=== PATIENT | female | born 1950 | race Caucasian/White ===

== ENCOUNTER 2018-03-26 01:58 | Outpatient (CLI) | payer MEDICARE, BC, SELFPAY ==
[2018-03-26 09:00] LABS: ALT 23 U/L (12-78); AST 17 U/L (15-37); Albumin 3.5 g/dL (3.4-5.0); Alkaline Phosphatase 78 U/L (46-116); Anion Gap 11.5 mmol/L (3-11); BUN 25 mg/dL (7-18); Bilirubin, Total 0.4 mg/dL (0.2-1.0); CO2 25.5 mmol/L (21.0-32.0); CREATININE 0.99 mg/dL (0.55-1.02); Calcium 8.9 mg/dL (8.5-10.1); Chloride 107 mmol/L (98-107); Estimated GFR 55.78 (mL/min/1.73m2); Glucose 98 mg/dL (70-100); Potassium 4.1 mmol/L (3.5-5.1); Sodium 144 mmol/L (136-145); Total Protein 7.4 g/dL (6.4-8.2)
== END 2018-03-26 02:18 ==
PROVIDERS: PCP Family Medicine; Visit Provider Family Medicine
DX: I10 Essential (primary) hypertension (principal)
CPT/HCPCS: 36415; 80053

== ENCOUNTER 2019-01-26 11:46 | Outpatient (CLI) | payer MEDICARE, BC, SELFPAY ==
--- NOTE | 2019-01-26 11:30 | DI.RAD_ITS ---
SYMPTOMS/DIAGNOSIS: RT KNEE PAIN RIGHT KNEE: Three views. Periarticular spurring is seen in the medial femoral tibial joint and the patellofemoral joint. There does appear to be mild narrowing of the medial femoral tibial joint and the patellofemoral joint. There is a large enthesophyte at the insertion site of the quadriceps tendon. The bones are intact and normally mineralized. IMPRESSION: Mild degenerative changes of the right knee.
== END 2019-01-26 12:06 ==
PROVIDERS: PCP Family Medicine; Referring Provider Family Medicine; Visit Provider Orthopaedic Surgery
DX: M25.561 Pain in right knee (principal); M17.11 Unilateral primary osteoarthritis, right knee; I10 Essential (primary) hypertension
CPT/HCPCS: 73562; 99211; 99213

== ENCOUNTER → 2019-02-23 09:05 | Outpatient (BNVA) | payer MEDICARE, BC, SELFPAY | PROVIDERS: PCP Family Medicine; Referring Provider Family Medicine; Visit Provider Orthopaedic Surgery | DX: M17.11 Unilateral primary osteoarthritis, right knee (principal); I10 Essential (primary) hypertension | CPT/HCPCS: 20610; 99211; 99213; J7325 ==

== ENCOUNTER 2019-03-30 11:59 | Outpatient (CLI) | payer MEDICARE, BC, SELFPAY ==
[2019-03-30 13:47] LABS: ALT 27 U/L (14-59); AST 18 U/L (15-37); Albumin 3.9 g/dL (3.4-5.0); Alkaline Phosphatase 84 U/L (46-116); Anion Gap 10.4 mmol/L (3-11); BUN 22 mg/dL (7-18); Bilirubin, Total 0.5 mg/dL (0.2-1.0); CO2 27.6 mmol/L (21.0-32.0); CREATININE 0.92 mg/dL (0.55-1.02); Calcium 8.6 mg/dL (8.5-10.1); Chloride 106 mmol/L (98-107); Glucose 90 mg/dL (70-100); Sodium 144 mmol/L (136-145); Total Protein 7.8 g/dL (6.4-8.2)
== END 2019-03-30 12:19 ==
PROVIDERS: PCP Family Medicine; Visit Provider Family Medicine
DX: I10 Essential (primary) hypertension (principal)
CPT/HCPCS: 36415; 80053

== ENCOUNTER → 2019-04-08 09:07 | Outpatient (BNVA) | payer MEDICARE, BC, SELFPAY | PROVIDERS: PCP Family Medicine; Referring Provider Family Medicine; Visit Provider Student in an Organized Health Care Education/Training Program | DX: M17.11 Unilateral primary osteoarthritis, right knee (principal); I10 Essential (primary) hypertension | CPT/HCPCS: 99214 ==

== ENCOUNTER → 2019-05-20 10:43 | Outpatient (BNVA) | payer MEDICARE, BC, SELFPAY | PROVIDERS: PCP Family Medicine; Referring Provider Family Medicine; Visit Provider Physical Therapy Assistant | DX: Z12.11 Encounter for screening for malignant neoplasm of colon (principal); Z86.010 Personal history of colon polyps; I10 Essential (primary) hypertension ==

== ENCOUNTER 2019-06-07 06:13 | Day surgery (SDC) | payer MEDICARE, BC, SELFPAY ==
[2019-06-07 06:29] VITALS: BP 128/78; PULSE 92; RESP 17; TEMP 36.8; O2SAT 94
--- NOTE | 2019-06-07 06:37 | W.COLOREPORT ---
Date of service: 06/07/19 Time of Service: 07:35 Colonoscopy Report Date of procedure: 06/07/19 Pre-op diagnosis general: Hx of colon polyps Post-op diagnosis procedure note: same (polyps x4) Procedure: Colonoscopy with polypectomy by cold forceps Surgeon: Naomi Ayala Anesthesia proc note operative: other (General/ ASA 2/Chelsie Martinez, KIMBERLY ) Estimated blood loss (mL): 3 Pathology: other (Ascending colon polyps x2, descending colon polyps x2) Complications: None Disposition: same day Indications: 68 y/o female with history of GERD and HTN presents for colonoscopy screening pre-op. Her last screening was in 2010, which was remarkable for Tubular Adenoma. She reports a family history of colon cancer in her paternal grandfather. She denies any changes in bowel habits including bloody or black tarry stools, abdominal pain, diarrhea or constipation. She denies constitutional symptoms. Risks, benefits and complications have been reviewed. Complications include but are not limited to bleeding, pain, perforation, missed small lesion/polyp, sore throat, aspiration and adverse reaction to the medications. Questions were entertained and answered to their satisfaction and they wished to proceed. No guarantees were given or implied. Prep: Miralax/Dulcolax Procedure Start Time: 07:35 Procedure End Time: 08:00 Retraction Time: 17 minutes Findings: 4 small < 10 mm polyps Procedure Description: After informed consent was obtained the patient was taken to the procedure room and placed in a left decubitous position. Monitors were applied and a time out was done. The patients name, date of , procedure, allergies to medications and metal in their body was reviewed. The patient was then sedated. Once sedated and comfortable a rectal exam was done. External exam was normal. Internal exam revealed a normal sphincter tone and no palpable masses. The scope was then introduced and retro-flexed. No internal hemorrhoids, masses or polyps were identified on retro-flexion. The scope was then advanced to the cecum without difficulty. The TI and appendiceal orifice were identified. The prep was good. The scope was then slowly retracted over 17 minutes back into the rectum. Polyps were removed with cold forceps in the ascending colon x2 and the descending colon x2. The scope was removed and the patient was woken up and taken back to Same day surgery in stable condition. The patient tolerated the procedure well and there were no immediate complications. Follow up: The patient should follow up in 3-5 years unless they develop changes in bowel habits or other new gastrointestinal complaints.
--- NOTE | 2019-06-07 06:38 | PDOC.DSDIS_ITS ---
Discharge Plan Disposition Patient Disposition: HOME Condition: Good Discharge Details Reason For Visit: Hx of polyps Attending Provider: Naomi Ayala Primary Care Provider: Madeline Klein Home Meds and New Rx's Prescriptions: Continued cholecalciferol (vitamin D3) 1,000 unit capsule 1,000 unit PO DAILY RF: 0 losartan 25 mg tablet 25 mg PO DAILY Qty: 90 RF: 4 hydrochlorothiazide 25 mg tablet 25 mg PO DAILY Qty: 90 RF: 4 naproxen sodium [Aleve] 220 mg capsule 220 mg PO PRN PRNRF: 0 Centrum Silver Ultra Women's 1 EACH tablet 1 ea PO DAILY RF: 0 Discontinued polyethylene glycol 3350 17 gram/dose powder 238 g PO ONCE Qty: 238 RF: 0 bisacodyl [Dulcolax (bisacodyl)] 5 mg tablet,delayed release (DR/EC) 5 mg PO ONCE Qty: 4 RF: 0 Discharge Instructions Instructions: Colonoscopy (DC), Colorectal Polyps (DC) Additional Instructions: Findings: 4 small polyps Follow up: 3-5 years Please call if you develop: fevers >101.5 Nausea or Vomiting Abdominal pain that is not transient DAY SURGERY UNIT POST ENDOSCOPY INSTRUCTIONS 1. Because there will be medication in your system for the next 24 hours, you may feel a little sleepy. Your coordination will be affected. Therefore: a. Do not drive or operate dangerous equipment for 24 hours. b. Do not drink alcohol beverages for 24 hours (not even beer). c. Plan to go home and rest for the day. 2. Generally there are no restrictions on your activity after a day or so has go ne by, but you may feel a bit fatigued for a few days. 3 After you arrive home you may have a light meal and return to a normal diet as you can tolerate it without feeling sick to your stomach. 4. After surgery, you may feel pain or discomfort. This should be only transient, but if it persists please contact your doctor. 5. If there are any questions regarding the findings of your procedure, please feel free to contact your doctor. 6. If you are unable to contact your doctor with a problem, contact the hospital at [phone]. 7. Continue all your regular medications unless directed otherwise. I understand the above instructions and have no questions. Signature of Patient or Responsible Adult Escort Date/Time Name of Responsible Adult Escort Signature of Nurse Date/Time Activity:: Activity as Tolerated Diet:: As Tolerated Discharge Orders Discharge Orders: Discharge Order (Routine); Ordered 06/07/19 Ordered By: Naomi Ayala DS: Diagnosis Discharge Diagnosis (1) Hx of colonic polyps: Status: Acute (2) S/P colonoscopy: Status: Acute
[2019-06-07] MEDS: Lactated Ringers 1,000 ML 80 ML IV (07:03)
[2019-06-07] MEDS: Sodium Citrate 30 ML CUP (07:25)
--- NOTE | 2019-06-07 07:37 | BOWEL_PTH ---
PATIENT: Theresa Mccauley LOC: [facility] U#:[id number] AGE/SX: 68/F ROOM: RE06/07/[address]: Naomi Ayala MD : 1950 BED: DIS: 06/07/2019 SPEC #: [id number] RECD: 06/07/19 12:27 STATUS: JAY RE #: [id number] KIMBERLY: 06/07/19 07:[address]: Naomi Ayala DEPT: Surgical Specimen RECD BY: Estrella Downey ENTERED: 06/07/19 12:29 SP TYPE: Bowel OTHR DR: Madeline Klein MD Tissues: 1 - BIOPSY BOWEL 2 - BIOPSY BOWEL Procedures: GROSS AND MICRO LEVEL 4 Comments: [id number]
[2019-06-07 08:45] VITALS: BP 126/62; PULSE 72; RESP 16; TEMP 36.1; O2SAT 96
== END 2019-06-07 09:26 | disposition home or self-care (01) ==
PROVIDERS: PCP Family Medicine; Visit Provider Surgery
PROC: 0DJD8ZZ Inspection of Lower Intestinal Tract, Via Natural or Artificial Opening Endoscopic (ICD-10-PCS; CPT 45378; principal; 2019-06-07 07:30)
DX: Z12.11 Encounter for screening for malignant neoplasm of colon (principal); Z86.010 Personal history of colon polyps; Z80.0 Family history of malignant neoplasm of digestive organs; I10 Essential (primary) hypertension; D12.2 Benign neoplasm of ascending colon; D12.4 Benign neoplasm of descending colon
CPT/HCPCS: 45380; 88305

== ENCOUNTER 2021-03-23 02:48 | Outpatient (CLI) | payer MEDICARE, BC, SELFPAY ==
[2021-03-23 15:12] LABS: ALT 27 U/L (14-59); AST 18 U/L (15-37); Albumin 3.7 g/dL (3.4-5.0); Alkaline Phosphatase 74 U/L (46-116); Anion Gap 7.4 mmol/L (3-11); BUN 22 mg/dL (7-18); Bilirubin, Total 0.6 mg/dL (0.2-1.0); CO2 28.6 mmol/L (21.0-32.0); CREATININE 0.8 mg/dL (0.55-1.02); Calcium 9.3 mg/dL (8.5-10.1); Chloride 108 mmol/L (98-107); Glucose 86 mg/dL (74-106); Sodium 144 mmol/L (136-145); Total Protein 7.4 g/dL (6.4-8.2)
== END 2021-03-23 02:49 | disposition home or self-care (01) ==
LOC: LBO 02:48
PROVIDERS: PCP Family Medicine; Visit Provider Family Medicine
DX: I10 Essential (primary) hypertension (principal)
CPT/HCPCS: 36415; 80053

== ENCOUNTER 2021-03-26 15:45 | Outpatient (CLI) | payer MEDICARE, BC, SELFPAY ==
--- NOTE | 2021-03-26 10:30 | DI.RAD_ITS ---
Exam(s) XR HIP RT COMPLETE AP PELVIS EXAM: XR HIP RT COMPLETE AP PELVIS CLINICAL HISTORY: right hip pain/ no trauma M25.551 PAIN RT HIP. TECHNIQUE: 2D digital imaging was performed. COMPARISON: No exams were available for comparison FINDINGS: Four views of the pelvis hips reveal no evidence of pelvic nor hip fracture. Additional views of the right hip reveal mild degenerative changes. Osteitis symphysis pubis noted. Sacroiliac joints unre markable. IMPRESSION: DATA REPOSITORY: RADIATION DOSE DELIVERED:
== END 2021-03-26 16:05 ==
PROVIDERS: PCP Family Medicine; Visit Provider Family Medicine
DX: M25.551 Pain in right hip (principal); M86.8X8 Other osteomyelitis, other site
CPT/HCPCS: 73502

== ENCOUNTER 2022-06-19 02:14 | Outpatient (CLI) | payer MEDICARE, BC, SELFPAY ==
--- NOTE | 2022-06-19 10:24 | DI.US_ITS ---
APPROVED REPORT EXAM: Comprehensive 2D, Doppler, and color-flow Echocardiogram Patient Location: Out-Patient Paperback Machine Operator: Ana Cm RDCS (AE) Indications: Holosystolic heart murmur Other Information Study Quality: Adequate Conclusion Borderline concentric left ventricular hypertrophy. Estimated ejection fraction is 60%. Wall motion is normal Normal right ventricular size and systolic function Both atria are normal in size Aortic valve is mildly sclerotic, probably trileaflet, without stenosis or regurgitation Moderate to severe mitral annular calcification. Mild to moderate mitral regurgitation Normal tricuspid valve with trace to mild regurgitation. Estimated right ventricular systolic pressu re is 22 mmHg Mildly dilated ascending aorta measuring 3.48 cm Wall motion Left Ventricle The left ventricle is normal size. The left ventricular systolic function is normal. The left ventric ular ejection fraction is within the normal range. Borderline concentric left ventricular hypertrophy . . There is normal LV segmental wall motion. There is no ventricular septal defect visualized. LVEF is 60%. Right Ventricle The right ventricle is normal size. The right ventricular systolic function is normal. The RVSP is 21 .8 mmHg. Atria The left atrium size is normal. The right atrium size is normal. The interatrial septum is intact wit h no evidence for an atrial septal defect. Aortic Valve The Aortic valve is mildly sclerotic. Aortic valve is probably trileaflet. No hemodynamically signif icant valvular aortic stenosis. No aortic regurgitation is present. Mitral Valve Moderate to severe mitral annular calcification. No evidence of mitral valve stenosis. Mild to modera te mitral regurgitation. Tricuspid Valve The tricuspid valve is normal in structure. There is no tricuspid valve stenosis. Trace to mild tricu spid regurgitation. Pulmonic Valve Pulmonic valve is not well visualized. There is no pulmonic valvular stenosis. Trace pulmonic regurgi tation. Great Vessels The aortic root is normal in size. The ascending aorta is mildly dilated. Aortic arch is normal in ca liber. IVC is normal in size and collapses >50% with inspiration. Pericardium There is no pericardial effusion. 2D Dimensions IVSD d PLAX 1.09 cm F: 0.6-1.0 LV Vol A2C d MOD 115.0 mL LVPW d PLAX 1.09 cm F: 0.6 - 1.0 LV Vol A4C d MOD 91.4 mL LVID d PLAX 4.00 cm F: 3.8 - 5.2 LA vol/ BSA A2C s A-L 31.3 mL/m2 LVDs 2.55 cm F: 2.2 - 3.5 LA vol/ BSA A4C s A-L 21.7 mL/m2 Ao Root d 2.91 cm F: 2.7 - 3.3 LA Vol/ BSA Biplane s A-L 26.5 mL/m2 RA Area A4C 10.54 cm2 LA Area A4C s MOD 16.98 cm2 RA Vol/ BSA A4C s A-L 9.5 mL/m2 LA Area A2C s MOD 20.72 cm2 Ao Asc Diam d 3.48 cm F: 2.3 - 3.1 LV EF A4C MOD 59.0 % LV EF Teichholz 65.5 % LV EF A2C MOD 58.8 % LVEF (Soares's) 60.20 % F: 54 - 74 LV EF Biplane MOD 60.2 % LV Volume 78.64 mL F: 46 - 106 SV 64.42 mL LV Volume Index 36.92 mL/m2 F: 29 - 61 SV Index 30.27 mL/m2 LV Vol Biplane MOD 107.0 mL FS 35.45 % M-Mode TAPSE 2.07 cm (M/F) >1.7 LV Diastology MV E' medial 0.065 (>0.07 m/s) E/A Ratio 0.7 LV E/e MED 17.30 (<14) MV E Vmax 1.12 (0.4-1.3 m/s) MV E' lateral 0.059 (>0.1 m/s) MV A Vmax 1.60 (0.4-1.3 m/s) LV E/e LAT 19.10 (<14) MV E/A Ratio 0.70 MV E/E' medial 17.31 MV E/E' lateral 19.11 Aortic Valve LVOT Area 3.33 cm2 AoV Area Vmax 2.35 cm2 LVOT Vmax 1.45 m/s AoV Area/ BSA (Vmax) 1.10 cm2/m2 LVOT Mean Miah. 0.95 m/s MELISA Mean Miah. 2.07 cm2 LVOT Peak Grad 8.4 mmHg MELISA Mean Miah. Index 0.97 cm2/m2 LVOT Mean Grad 4.3 mmHg LVOT VTI 0.296 m LVOT Diam s 2.05 cm AoV Vmax 2.05 m/s Velocity Ratio 0.71 AoV Mean Miah. 1.52 m/s AoV Peak Grad 16.8 mmHg LVOT SV 98.54 mL AoV Mean Grad 10.3 mmHg AoV VTI 0.446 m AoV Area VTI 2.21 cm2 AoV Area/ BSA (VTI) 1.04 cm/m2 Mitral Valve MV DT 340 (160-240 msec) MV PHT 99 msec MV Area PHT 2.23 cm2 MV VTI 0.500 m MV Area VTI 1.97 (4.0-6.0 cm2) Pulmonary Valve PV Vmax 1.13 (0.5-1.5 m/s) RVOT Peak Gr. 3.50 mmHg PV Peak Grad 5.1 mmHg RVOT Mean Gr. 1.70 mmHg PV Mean Grad 2.4 mmHg RVOT VTI 0.190 m PV VTI 0.188 m RVOT Vmax 0.94 m/s Tricuspid Valve TR Peak Grad 18.7 mmHg TR Vmax 2.17 m/s RA Pressure 3.00 mmHg RVSP (TR) 21.8 mmHg
== END 2022-06-19 02:34 ==
LOC: DI 02:14
PROVIDERS: PCP Family Medicine; Visit Provider Family Medicine
DX: R01.1 Cardiac murmur, unspecified (principal)
CPT/HCPCS: 36415; 80053; 80061; 93306

== ENCOUNTER 2022-06-19 02:44 | Outpatient (CLI) | payer MEDICARE, BC, SELFPAY ==
[2022-06-19 10:13] LABS: ALT 26 U/L (14-59); AST 25 U/L (15-37); Albumin 3.6 g/dL (3.4-5.0); Alkaline Phosphatase 83 U/L (46-116); Anion Gap 7.9 mmol/L (3-11); BUN 23 mg/dL (7-18); Bilirubin, Total 0.6 mg/dL (0.2-1.0); CO2 29.1 mmol/L (21.0-32.0); Calcium 9.2 mg/dL (8.5-10.1); Calculated LDL 107 mg/dL (<100); Chloride 102 mmol/L (98-107); Cholesterol 190 mg/dL (<200); Estimated GFR 59.49 (mL/min/1.73m2); Glucose 105 mg/dL (74-106); HDL Cholesterol 71 mg/dL (40-60); Potassium 3.4 mmol/L (3.5-5.1); Sodium 139 mmol/L (136-145); Triglyceride 63 mg/dL (<150)
== END 2022-06-19 02:45 | disposition home or self-care (01) ==
LOC: LBO 02:44
PROVIDERS: PCP Family Medicine; Visit Provider Family Medicine
DX: I10 Essential (primary) hypertension (principal); Z00.00 Encounter for general adult medical examination without abnormal findings; Z13.6 Encounter for screening for cardiovascular disorders
CPT/HCPCS: 36415; 80053; 80061

== ENCOUNTER 2023-06-09 03:56 | Outpatient (CLI) | payer MEDICARE, BC, SELFPAY ==
[2023-06-09 08:45] LABS: BUN 28 mg/dL (7-18); CREATININE 1.2 mg/dL (0.55-1.02); Calcium 9.7 mg/dL (8.5-10.1); Calculated LDL 74 mg/dL (<100); Chloride 104 mmol/L (98-107); Cholesterol 163 mg/dL (<200); Glucose 111 mg/dL (74-106); HDL Cholesterol 74 mg/dL (40-60); Potassium 3.8 mmol/L (3.5-5.1); Sodium 141 mmol/L (136-145); Triglyceride 76 mg/dL (<150)
== END 2023-06-09 03:57 | disposition home or self-care (01) ==
LOC: LBO 03:56
PROVIDERS: PCP Family Medicine; Visit Provider Family Medicine
DX: I10 Essential (primary) hypertension (principal); Z13.6 Encounter for screening for cardiovascular disorders
CPT/HCPCS: 36415; 80048; 80061

== ENCOUNTER 2024-05-14 15:10 | Outpatient (CLI) | payer MEDICARE, BC, SELFPAY ==
[2024-05-14 10:35] LABS: Anion Gap 11.7 mmol/L (3-11); BUN 25 mg/dL (7-18); CO2 25.3 mmol/L (21.0-32.0); CREATININE 1.1 mg/dL (0.55-1.02); Calcium 9.2 mg/dL (8.5-10.1); Calculated LDL 55 mg/dL (<100); Chloride 106 mmol/L (98-107); Cholesterol 151 mg/dL (<200); Estimated GFR 52.73 (mL/min/1.73m2); Glucose 106 mg/dL (74-106); HDL Cholesterol 71 mg/dL (40-60); Potassium 3.3 mmol/L (3.5-5.1); Sodium 143 mmol/L (136-145); Triglyceride 126 mg/dL (<150)
--- OUTSIDE RECORDS SUMMARY | 2024-05-14 15:15 | XMS_ITS | Clinical Summary ---
Author Organization [facility] Address [facility] [place] [address] Care Team Providers Care Running Rigger Name Role Phone Carla Roberts MD Primary Care Provider Allergies Active Allergy Reactions Criticality Noted Date Comments Caffeine 01/29/2013 Penicillins 01/29/2013 Sulfa (Sulfonamide Antibiotics) High CIS - Hives Medications Medication Sig Dispensed Refills Start Date End Date Status atenolol (TENORMIN) 25 mg tablet 12.5MG = 1/2 Tablet(s), PO, Once daily 04/14/2006 Active lisinopril-hydrochlo rothiazide (PRINZIDE;ZESTORETIC ) 10-12.5 mg per tablet Take 1 tablet by mouth daily. Active CALCIUM CARBONATE/VITAMIN D3 (CALCIUM+D ORAL) Take by mouth. Acti ve MULTIVITAMIN W-MINERALS/LUTEIN (CENTRUM SILVER ORAL) Take by mouth. Active hydroCHLOROthiazide (Hydrodiuril) 25 mg Tablet Take 25 mg by mouth daily. 03/06/2022 Active losartan (Cozaar) 50 mg Tablet Take 50 mg by mouth daily. 01/25/2022 Active fluorouraciL (EFUDEX) 5 % CreamIndications:Act inic skin damage Apply twice daily (morning and night) to the cheeks and forehead for 2-3 weeks 40 g 03/21/2022 Active Additional Information Patient not taking.Reported on 05/04/2024 atorvastatin (Lipitor) 40 mg tablet Take 40 mg by mouth nightly. 04/20/2024 Active Active Problems Problem Noted Date Diagnosed Date BCC (basal cell carcinoma of skin) 03/03/2013 Overview (03/03/2013): Right upper forehead, s/p Mohs surgery 03/03/2013 Hypertension 02/09/2013 Skin lesion of face 01/30/2013 Encounters Date Type Department Care Team Description 05/04/2024 12:08 PM EDT - 05/04/2024 11:59 PM EDT Hospital Encounter Mammography/[place] [address] Carla Roberts MD Encounter for screening mammogram for breast cancer Discharge Disposition: Home 05/04/2024 9:30 AM EDT Office Visit Dermatology at [address] [place] [address] Shiloh Hall MD Skin cancer screening; History of nonmelanoma skin cancer; Neoplasm of unspecified behavior of bone, soft tissue, and skin; Multiple benign melanocytic nevi of both upper extremities, both lower extremities, and trunk; Dermatofibroma; Lentigines; Cat angioma; Seborrheic keratoses; Actinic keratoses 05/04/2024 Travel from Last 3 Months Family History Medical History Relation Comments Breast Cancer Mother Relation Status Comments Mother Social History Tobacco Use Types Packs/Day Years Used Date Smoking Tobacco: Never Smokeless Tobacco: Never Sex and Gender Information Value Date Recorded Sex Assigned at Not on file Gender Identity Not on file Sexual Orientation Not on file Last Filed Vital Signs Vital Sign Reading Time Taken Comments Blood Pressure 115/89 03/03/2013 7:47 AM EDT Pulse 68 03/03/2013 7:47 AM EDT Temperature - - Respiratory Rate 18 03/03/2013 7:47 AM EDT Oxygen Saturation - - Inhaled Oxygen Concentration - - Weight 99.8 kg (220 lb) 03/03/2013 7:47 AM EDT Height 174 cm (5' 8.5) 03/03/2013 7:47 AM EDT Body Mass Index 32.96 03/03/2013 7:47 AM EDT Plan of Treatment Health Maintenance Due Date Last Done Comments CT Colonography 1950 Colonoscopy 1950 Colorectal Cancer Screening 1950 FIT DNA 1950 FIT 1950 Sigmoidoscopy (10 year) with FIT yearly 1950 Sigmoidoscopy 1950 Hepatitis C Screening 1967 Tetanus/Diphtheria/Pertussis Vaccines (1 - Tdap) 1968 Breast Cancer Share Decision Needed 1989 Zoster vaccine (1 of 2) 1999 Advance Directive 2004 Bone Density Scan 2014 Pneumoccocal Vaccine: 65+ (1 of 1 - PCV) 2014 Covid-19 Vaccine (1 - 2023-2 5 season) 2024 Influenza (Flu) vaccine (1 o f 1 - Influenza standard series) 03/07/2024 Breast Cancer screening 05/04/2026 05/04/20 24, 03/21/2022, 10/17/2020, Additional history exists Procedures Procedure Name Priority Date/Time Associated Diagnosis Comments MAMMO SCREENING CAD AND BETHEL BILATERAL Routine 05/04/2024 12:49 PM EDT Encounter for screening mammogram for breast cancer SURGICAL PATHOLOGY, DERMATOLOGY Routine 05/04/2024 9:56 AM EDT Neoplasm of unspecified behavior of bone, soft tissue, and skin from Last 3 Months Results * Mammo Screening Cad and Bethel Bilateral (05/04/2024 12:49 PM EDT) Anatomical Region Laterality Modality Breast Bilateral Mammography Impressions 05/05/2024 10:15 AM EDT : No mammographic evidence of malignancy. RECOMMENDATION: Regular screening mammograms starting at age 40 reduce the risk of from breast cancer. Individuals should discuss the risks and benefits with their provider to determine their preferred breast cancer screening schedule, and at what age screening should stop. Individuals should report any breast changes to a health care provider right away. Some individuals, because of their family history, a genetic tendency, or other factors, should consider being screened with annual breast MRI as well as with mammograms. Screening mammography may not detect 10-15% of breast cancers. A result letter has been sent to this patient by the [facility]. BIRADS CATEGORY 1: NEGATIVE [[id number]] Electronically signed by: KENTON CHEN MD [facility] at [address] [address] Your breast imaging exam done on: ??05/04/24 Narrative 05/05/2024 10:15 AM EDT BILATERAL MAMMOGRAPHY REASON FOR EXAM: Screening TECHNIQUE: CC and MLO views were obtained of each breast using standard 2-D mammography as well as 3-D tomosynthesis. Computer aided detection was used. This is compared with prior images. FINDINGS: There are scattered areas of fibroglandular density. There are no suspicious microcalcifications, masses, or areas of distortion. The pattern is stable. Carla Roberts MD [facility] * (ABNORMAL) Surgical Pathology, Dermatology (05/04/2024 9:56 AM EDT) Case Report Surgical Pathology Report ? Case: [id number] ? Authorizing Provider: ??Shiloh Hall MD ?Collected: ? 05/04/2024 0956 ? Ordering Location: ? Dermatology at [facility] Received: ?05/04/2024 1058 ? Pathologist: ? Roberta Avendaño MD ? Specimen: ?Back, Upper Right ? 05/13/2024 9:[address] [facility] Final Diagnosis A. Back, Upper Right, shave biopsy: Basal cell carcinoma, superficial pattern, present at the peripheral specimen edge 05/13/2024 9:[address] [facility] Clinical Information A. ISK vs BCC. 1 cm bright pink thin papule. 05/13/2024 9:[address] [facility] Gross Description A. Back, Upper Right. A - Labeled/Fixati ve: Back, upper right, formalin. Quantity/Size: Single, 0.8 x 0.7 x 0.1 cm. Tissue Description: Shave of pink-white skin. Sections/Proce ssing: Inked, trisected and entirely submitted in 1 cassette labeled A1. sns 05/13/2024 9:[address] [facility] Result Note THIS RESULT REQUIRES PHYSICIAN/ANALILIA FOLLOW UP(A) 05/13/2024 9:[address] [facility] Skin SKIN STRUCTURE OF UPPER BACK / Unknown Non Blood Collection / Unknown 05/04/2024 9:56 AM EDT 05/04/2024 10:58 AM EDT Shiloh Hall MD PATHOLOGY/CYTOLOGY O RDERABLES [facility] [place] [address] from Last 3 Months Care Teams Running Rigger Relationship Specialty Start Date End Date Carla Roberts MD [address] [place] [address] [place] [address] PCP - General Family Medicine 03/21/22
--- OUTSIDE RECORDS SUMMARY | 2024-05-14 15:15 | XMS_ITS | Encounter Summary ---
Author Organization [facility] [place] [address] Care Team Providers Care Stage Rigger Name Role Phone Carla Roberts MD Primary Care Provider Encounter Details Date Type Department Care Team (Latest Contact Info) Description 05/04/2024 Travel Social History Tobacco Use Types Packs/Day Years Used Date Smoking Tobacco: Never Smokeless Tobacco: Never Sex and Gender Information Value Date Recorded Sex Assigned at Not on file Gender Identity Not on file Sexual Orientation Not on file documented as of this encounter Plan of Treatment Not on file documented as of this encounter Visit Diagnoses Not on filedocumented in this encounter Care Teams Stage Rigger Relationship Specialty Start Date End Date Carla Roberts MD [address] [place] [id number] PCP - General Family Medicine 03/21/22 documented as of this encounter
--- OUTSIDE RECORDS SUMMARY | 2024-05-14 15:16 | XMS_ITS | Encounter Summary ---
Author Organization [facility] [place] [address] Care Team Providers Care Acute Care Nurse Practitioner Name Role Phone Madeline Klein MD Primary Care Provider Reason for Visit * Reason Comments Skin Check Encounter Details Date Type Department Care Team (Late st Contact Info) Description 02/10/2015 9:45 AM EDT Follow-Up Dermatology at [facility] [address] [place] [address] Evan Nolasco III, MD [facility] [address] [place] [address] AK (actinic keratosis); Filiform wart Discharge Disposition: Home Social History Tobacco Use Types Packs/Day Years Used Date Smoking Tobacco: Never Sex and Gender Information Value Date Recorded Sex Assigned at Not on file Gender Identity Not on file Sexual Orientation Not on file documented as of this encounter Progress Notes * Racheal Baker LPN - 02/10/2015 10:03 AM EDT DERMATOLOGY ESTABLISHED PATIENT CLINIC NOTE Date of service: 02/10/2015 Theresa Mccauley : 1950 Provider: Evan Nolasco MD PROBLEM: skin cancer screening SKIN HISTORY: BCC, right forehead s/p Mohs 02/2013 No family history of Melanoma HPI Theresa Mccauley is a 64 y.o. year old female. She is an established patient, seen 01/17 for warts.She is here for a full skin exam. She has a new papule on her calf that appeared a couple of weeks ago and a dry spot on her forearm. Warts cleared ADR: Allergies Allergen Reactions ??? Sulfa (Sulfonamide Antibiotics) CIS - Hives ??? Caffeine ??? Penicillins CURRENT MEDICATIONS: Current Outpatient Prescriptions Medication Sig Dispense Refill ??? MULTIVITAMIN W-MINERALS/LUTEIN (CENTRUM SILVER ORAL) Take by mouth. ??? CALCIUM CARBONATE/VITAMIN D3 (CALCIUM+D ORAL) Take by mouth. ??? lisinopril-hydrochlorothiazide (PRINZIDE;ZESTORETIC) 10-12.5 mg per tablet Take 1 tablet by mouth daily. ??? atenolol (TENORMIN) 25 mg tablet 12.5MG = 1/2 Tablet(s), PO, Once daily No current facility-administered medications for this visit. PROBLEM LIST: Patient Active Problem List Diagnosis Code ??? Skin lesion of face 709.9 ??? Hypertension 401.9 ??? BCC (basal cell carcinoma of skin) 173.91 ROS General: feeling well Skin: denies other skin complaints EXAM General: NAD, pleasant, cooperative Skin: A total body skin exam except for the genitalia was performed. This includes examination of the skin of the face, ears, neck, chest, axillae, left and right upper and lower extremities, hands, feet, abdomen, back, and buttocks. The genitalia, perineum, and perianal areas were not examined. Significant skin findings: A. 0.2-0.3cm scaly irregular pink papule(s) right forearm, chest, right and left dorsum of nose, right cheek, B. Right calf - white/ sommer hyperkeratotic papule Scar from earlier BCC- NER No new or suspicious lesions noted. ASSESSMENT/PLAN: A. actinic keratosis - right forearm, chest, right and left dorsum of nose, right cheek, I discussed this condition with the patient and explored therapeutic options. I recommended LN2 Procedure Note: Procedure: Destruction of lesion(s) with cryotherapy. Number: 5 Location: as above Discussed procedure and expectations including risks (including risk of hypopigmentation) and benefits. Verbal consent obtained. Frozen with LN2, 15-30 second thaw time, TWICE. There were no complications; the patient tolerated the procedure well. Post-procedure expectations and wound care were reviewed. B. Filiform wart - calf - I discussed this condition with the patient and explored therapeutic options. I recommended this be treated with LN2 Procedure Note: Procedure: Destruction of lesion(s) with cryotherapy. Number: 1 Location: as above Discussed procedure and expectations including risks (including risk of hypopigmentation) and benefits. Verbal consent obtained. Frozen with LN2, 15-30 second thaw time, TWICE. There were no complications; the patient tolerated the procedure well. Post-procedure expectations and wound care were reviewed. The nature of sun-induced photo-aging and skin cancers is discussed. Sun avoidance, protective clothing, and the use of 30-SPF sunscreens is advised. Observe closely for skin damage/changes, and callif such occurs. RTC in 1 year, sooner if needed.. I am documenting this encounter acting as the scribe for and in the presence of Dr. Nolasco.: RACHEAL BAKER LPN I performed the above scribed service and agree with the accuracy of the documentation in this encounter. Evan Nolasco MD Section of Dermatology [facility] documented in this encounter Plan of Treatment Not on file documented as of this encounter Visit Diagnoses Diagnosis AK (actinic keratosis) Actinic keratosis Filiform wart Other specified viral warts documented in this encounter Care Teams Acute Care Nurse Practitioner Relationship Specialty Start Date End Date Madeline Klein MD [address] [place] [address] PCP - General 01/24/14 03/20/22 documented as of this encounter
--- OUTSIDE RECORDS SUMMARY | 2024-05-14 15:16 | XMS_ITS | Encounter Summary ---
Author Organization [facility] [place] [address] Care Team Providers Care Head Resident Name Role Phone Carla Roberts MD Primary Care Provider [phone] Encounter Details Date Type Department Care Team (Late st Contact Info) Description 03/21/2022 1:08 PM EDT - 03/21/2022 11:59 PM EDT Hospital Encounter Mammography/[place] [id number] Carla Roberts MD [address] [place] [id number] Encounter for screening mammogram for breast cancer Discharge Disposition: Home Social History Tobacco Use Types Packs/Day Years Used Date Smoking Tobacco: Never Smokeless Tobacco: Never Sex and Gender Information Value Date Recorded Sex Assigned at Not on file Gender Identity Not on file Sexual Orientation Not on file documented as of this encounter Medications at Time of Discharge Medication Sig Dispensed Refills Start Date End Date hydroCHLOROthiazide (Hydrodiuril) 25 mg Tablet Take 25 mg by mouth daily. 03/06/2022 losartan (Cozaar) 50 mg Tablet Take 50 mg by mouth daily. 01/25/2022 fluorouraciL (EFUDEX) 5 % CreamIndications:Actinic skin damage Apply twice daily (morning and night) to the cheeks and forehead for 2-3 weeks 40 g 03/21/2022 MULTIVITAMIN W-MINERALS/LUTEIN (CENTRUM SILVER ORAL) Take by mouth. CALCIUM CARBONATE/VITAMIN D3 (CALCIUM+D ORAL) Take by mouth. lisinopril-hydrochlorothi azide (PRINZIDE;ZESTORETIC) 10-12.5 mg per tablet Take 1 tablet by mouth daily. atenolol (TENORMIN) 25 mg tablet 12.5MG = 1/2 Tablet(s), PO, Once daily 04/14/2006 documented as of this encounter Plan of Treatment Not on file documented as of this encounter Procedures Procedure Name Priority Date/Time Associated Diagnosis Comments MAMMO SCREENING CAD AND BETHEL BILATERAL Routine 03/21/2022 1:55 PM EDT Encounter for screening mammogram for breast cancer documented in this encounter Results * Mammo Screening Cad and Bethel Bilateral (03/21/2022 1:55 PM EDT) Anatomical Region Laterality Modality Breast Bilateral Mammography Narrative 03/22/2022 9:33 AM EDT BILATERAL MAMMOGRAPHY REASON FOR EXAM: Screening TECHNIQUE: CC and MLO views were obtained of each breast using standard 2-D mammography as well as 3-D tomosynthesis. Computer aided detection was used. This is compared with prior images. FINDINGS: There are scattered areas of fibroglandular density. There are no suspicious microcalcifications, masses, or areas of distortion. The pattern is stable. CONCLUSION: No mammographic evidence of malignancy. RECOMMENDATION: Regular screening mammograms starting between age 40 and 50 reduces the risk of from breast cancer. All screening tests have both risks and benefits. These risks and benefits should be assessed for each individual patient through discussion with their provider to determine their preferred breast cancer screening schedule. Women should report any breast changes to a health care provider right away. Some women, because of their family history, a genetic tendency, or other factors, should be screened with annual breast MRI as well as with mammograms. (The number of women who fall into this category is very small). Patients and health care providers should discuss each patient? s history to decide if earlier screening and/or breast MRI are appropriate. Screening should continue as long as a woman is in good health and is expected to live 10 years or longer. Screening mammography may not detect 10-15% of breast cancers. A result letter has been sent to this patient by the [facility]. BIRADS CATEGORY 1: NEGATIVE Electronically signed by: Shama Rivera MD Carla Alejandra MD IMG MAMMO ORDERABLES documented in this encounter Visit Diagnoses Diagnosis Encounter for screening mammogram for breast cancer documented in this encounter Care Teams Head Resident Relationship Specialty Start Date End Date Carla Roberts MD [address] [place] [address] PCP - General Family Medicine 03/21/22 documented as of this encounter
--- OUTSIDE RECORDS SUMMARY | 2024-05-14 15:16 | XMS_ITS | Encounter Summary ---
Author Organization [facility] [place] [address] Care Team Providers Care Physics Instructor Name Role Phone Madeline Klein MD Primary Care Provider [phone] Reason for Visit * Reason Comments Other Encounter Details Date Type Department Care Team (Late st Contact Info) Description 03/29/[address] [facility] [address] [place] [address] Evan Nolasco III, MD [facility] [place] [address] Social History Tobacco Use Types Packs/Day Years Used Date Smoking Tobacco: Never Sex and Gender Information Value Date Recorded Sex Assigned at Not on file Gender Identity Not on file Sexual Orientation Not on file documented as of this encounter Miscellaneous Notes * Telephone Encounter - Racheal Schmid LPN - 03/29/2015 11:45 AM EDT ----- Message from Evan Nolasco III, MD sent at 03/13/2015 11:56 AM EDT ----- Please check on the AK lesions we treated. Thanks. See as planned if needed, sooner if problems arise. i called and spoke with Theresa who states the spots treated have resolved. documented in this encounter Plan of Treatment Not on file documented as of this encounter Visit Diagnoses Not on filedocumented in this encounter Care Teams Physics Instructor Relationship Specialty Start Date End Date Madeline Klein MD [address] [place] [address] PCP - General 01/24/14 03/20/22 documented as of this encounter
--- OUTSIDE RECORDS SUMMARY | 2024-05-14 15:16 | XMS_ITS | Encounter Summary ---
Author Organization [facility] [place] [address] Care Team Providers Care Rd Manager Name Role Phone Madeline Klein MD Primary Care Provider Encounter Details Date Type Department Care Team (Late st Contact Info) Description 11/07/2020 Telephone Dermatology at [facility] [address] [place] [phone] Stephanie Bradley LPN Social History Tobacco Use Types Packs/Day Years Used Date Smoking Tobacco: Never Smokeless Tobacco: Never Sex and Gender Information Value Date Recorded Sex Assigned at Not on file Gender Identity Not on file Sexual Orientation Not on file documented as of this encounter Miscellaneous Notes * Telephone Encounter - Stephanie Bradley LPN - 11/07/2020 11:46 AM EDT Called and l/m with a return # if she has concerns with using the efudex. * Telephone Encounter - Stephanie Bradley LPN - 11/07/2020 11:46 AM EDT ----- Message from Evan Nolasco III, MD sent at 11/03/2020 8:06 PM EDT ----- Please check on the patient - she was going to use efudex - any problems? Thanks. See as planned if needed, sooner if problems arise. documented in this encounter Plan of Treatment Not on file documented as of this encounter Visit Diagnoses Not on filedocumented in this encounter Care Teams Rd Manager Relationship Specialty Start Date End Date Madeline Klein MD [address] [place] [address] PCP - General 01/24/14 03/20/22 documented as of this encounter
--- OUTSIDE RECORDS SUMMARY | 2024-05-14 15:16 | XMS_ITS | Encounter Summary ---
Author Organization [facility] [place] [address] Care Team Providers Care Data Entry Technician Name Role Phone Madeline Klein MD Primary Care Provider [phone] Reason for Visit * Reason Comments Skin Check Encounter Details Date Type Department Care Team (Late st Contact Info) Description 03/03/2017 9:30 AM EDT Office Visit Dermatology at [facility] [address] [place] [address] Evan Nolasco III, MD [facility] [address] [address] [place] (actinic keratosis); Lentigines; SK (seborrheic keratosis) Social History Tobacco Use Types Packs/Day Years Used Date Smoking Tobacco: Never Smokeless Tobacco: Never Sex and Gender Information Value Date Recorded Sex Assigned at Not on file Gender Identity Not on file Sexual Orientation Not on file documented as of this encounter Patient Instructions * Patient Instructions* Christine Pickens - 03/03/2017 9:30 AM EDT Images from the original note were not included. Efudex & Carac Treatment You have been prescribed Efudex OR Carac by your physician for treatment of Actinic Keratosis. Actinic Keratosis are common pre-cancerous lesions found most typically in lightly pigmented individuals, since a large number of cancerous cells begin as Actinic Keratosis, detection and treatment is critical. They are most commonly seen on the scalp, face, upper chest, hands, forearms and even the lower legs. Directions: ??? Apply twice daily (morning and night) to your cheeks and nose (avoid the creases) for 2-3 weeks. Preparing to use Efudex ?? Wash hands well immediately before and after applying Efudex ?? Before you apply this medication to the skin, clean the affected area. Use gentle cleanser such as Cetaphil to the areas recommended before Efudex application. Rinse and pat dry. ?? Then apply a small amount of Efudex medication to the affected areas, using just enough to coverthe area with a thin film. ?? Avoid sun exposure if possible, wear a wide brimmed hat ?? May apply sunscreen or lotion 2 hours after Efudex application ?? For discomfort you may use cold wet compresses, take Tylenol and Vaseline may be applied as needed. What to Expect ?? Skin irritation, burning, redness, dryness, pain, swelling, tenderness or changing of skin colormay occur at the site of application. ?? Skin will not heal until AFTER treatment period is complete ?? Skin may take several weeks to heal completely Photos below are what you may expect your skin to become during this treatment. This is a normal reaction. Day 6 Day 16 Day 18 *DO NOT SHARE THIS MEDICATION *Do not stop this medication unless instructed to by a physician. *During this treatment, please avoid using any other topical products unless instructed to do so byyour physician. *Return for a follow up in 3 months. Please call us at ?? Discomfort is severe enough to keep you up at night ?? You develop a thick yellow/honey colored tender crust over any treated area ?? You develop a fever documented in this encounter Progress Notes * Racheal Baker LPN - 03/03/2017 9:30 AM EDT DERMATOLOGY ESTABLISHED PATIENT CLINIC NOTE Date of service: 03/03/2017 Theresa Mccauley : 1950 Provider: Evan Nolasco MD PROBLEM: skin cancer screening SKIN HISTORY: BCC, right forehead s/p Mohs 02/2013 No family history of Melanoma HPI Theresa Mccauley is a 66 y.o. year old female. She is an established patient last seen on 02/26/16.She requests a full skin exam. She has a couple new spots on her left preauricular and left cheek and a patch of skin on the end of her nose that repeatedly peels. She lost her and mother last winter.- ADR: Allergies Allergen Reactions ??? Sulfa (Sulfonamide [...] Diagnosis Code ??? Skin lesion of face L98.9 ??? Hypertension I10 ??? BCC (basal cell carcinoma of skin) C44.91 ROS General: feeling well. Oriented X 3. Skin: denies other skin complaints EXAM General: NAD, pleasant, cooperative Skin: Patient was asked to disrobe to the level of their comfort. A total body skin exam except forthe genitalia was performed. This includes examination of the skin of the face, ears, neck, chest, axillae, left and right upper and lower extremities, hands, feet, abdomen, back, and buttocks. The genitalia, perineum, and perianal areas were not examined. Significant skin findings: A. Malar cheeks, nose - 0.2-0.3cm scaly irregular pink papules on bridge and tip of nose, both cheeks B. Sun exposed areas - 0.3-0.6cm light-brown evenly pigmented, well-demarcated macules C. Trunk and extremities - Multiple 0.4-1 cm, brown-black papules/plaques with waxy stuck on appearance No lesions suspicious for BCC or SCC at this time. No pigmented lesion suspicious for melanoma at this time. ASSESSMENT/PLAN: A. Actinic Keratosis - malar cheeks, nose -Discussed at length the natural history and etiology of actinic keratoses -Discussed premalignent potential of these lesions -Discussed at length treatment options for actinic keratoses including cryotherapy versus chemical treatment such as 5-FU or PDT -Discussed pros and cons of each including cryotherapy's potential for hypopigmentation and 5-FU's one month treatment course and potential for inflammation. -Photos were shown for what to expect during Efudex treatment course. -Discussed need to not have suntan for best results from PDT; restrictions on light exposure; may need two or more PDT treatments. -Patient would like to proceed with Efudex Rx: Efudex 5% cream (sent to [place], [place]) Apply to the malar cheeks and nose (avoid creases) twice daily for 2-3 weeks Apply to the affected areas of sun damage as discussed in clinic either once or twice daily depending on inflammation. OK to stop all together if too much discomfort. Urged patient to call clinic if there is too much pain or infection is suspected. -Apply Vaseline to the treated areas during the day -Detailed AVS given to patient Recheck 6 weeks after starting the Efudex (3 weeks after finishing) to ensure removal of the site. B. Lentigines - sun exposed areas (asymptomatic) - Discussed benign nature of lesion and provided reassurance - No treatment necessary at this time - Observe skin for change in color, size or character. Call if such occur C. Seborrheic Keratosis - trunk and extremities(asymptomatic) - Etiology discussed - Patient reassured lesions are benign in nature - Explained that these are hereditary, adult onset and acquired. - Can develop anywhere on the body except for palms or soles - Treatment of an asymptomatic seborrheic keratosis is considered a cosmetic procedure and is not covered by insurance. Discussed importance of sun protection, sun avoidance strategies, protective clothing, and sunscreen. RTC 3 weeks after completing Efudex, sooner if needed. Appointment scheduled upon exit. Instructed to call if problems arise. Note initiated by: RACHEAL BAKER LPN ? Christine Pickens, Clinical Scribe has performed the documentation for this encounter in the presenceof and acting as a scribe for Dr. Evan Nolasco. I performed the above scribed service and agree with the accuracy of the documentation in this encounter. I performed the above scribed service and agree with the accuracy of the documentation in this encounter. Evan Nolasco MD Section of Dermatology [facility] documented in this encounter Plan of Treatment Not on file documented as of this encounter Visit Diagnoses Diagnosis AK (actinic keratosis) Actinic keratosis Lentigines Other dyschromia SK (seborrheic keratosis) Other seborrheic keratosis documented in this encounter Care Teams Data Entry Technician Relationship Specialty Start Date End Date Madeline Klein MD [address] [place] [address] PCP - General 01/24/14 03/20/22 documented as of this encounter
--- OUTSIDE RECORDS SUMMARY | 2024-05-14 15:16 | XMS_ITS | Encounter Summary ---
Author Organization [facility] [place] [address] Care Team Providers Care Compress Trucker Name Role Phone Madeline Klein MD Primary Care Provider [phone] Encounter Details Date Type Department Care Team (Late st Contact Info) Description 01/24/2014 8:13 AM EDT - 01/24/2014 11:59 PM EDT Hospital En[place] [address] CLINIC, Madeline Rubi MD [address] [place], [place] [address]W[address] [facility] [address] [place] [address] Discharge Disposition: Home Social History Tobacco Use Types Packs/Day Years Used Date Smoking Tobacco: Never Sex and Gender Information Value Date Recorded Sex Assigned at Not on file Gender Identity Not on file Sexual Orientation Not on file documented as of this encounter Medications at Time of Discharge Medication Sig Dispensed Refills Start Date End Date MULTIVITAMIN W-MINERALS/LUTEIN (CENTRUM SILVER ORAL) Take by mouth. CALCIUM CARBONATE/VITAMIN D3 (CALCIUM+D ORAL) Take by mouth. lisinopril-hydrochlorothia zide (PRINZIDE;ZESTORETIC) 10-12.5 mg per tablet Take 1 tablet by mouth daily. atenolol (TENORMIN) 25 mg tablet 12.5MG = 1/2 Tablet(s), PO, Once daily 04/14/2006 documented as of this encounter Plan of Treatment Not on file documented as of this encounter Procedures Procedure Name Priority Date/Time Associated Diagnosis Comments MAMMO SCREENING CAD BILATERAL Routine 01/24/2014 8:46 AM EDT documented in this encounter Results * Mammo digital bilateral Screening with CAD (01/24/2014 8:46 AM EDT) Anatomical Region Laterality Modality Breast Bilateral Mammography 01/24/2014 8:46 AM EDT Narrative 01/24/2014 7:15 PM EDT Reason for Exam: Screening ?? Technique: Craniocaudal (CC) and Medio-lateral Oblique (MLO) views of both breasts obtained with direct digital capture. ?? The exam was evaluated by CAD version 8.3.17. ?? Findings: ?? This is a negative mammogram (ACR Category 1). There is a stable fibroglandular pattern without significant change from prior studies. There is no mammographic evidence of cancer. The breasts are predominately fatty. ?? CONCLUSION: This is a NEGATIVE mammogram (ACR Category 1). ?? Routine screening mammography is recommended with the frequency dependent upon the patients age and breast cancer risk factors. ?? A letter has been sent to this patient by the breast imaging center. Procedure Note Luz Tom MD - 01/24/2014 Reason for Exam: Screening Technique: Craniocaudal (CC) and Medio-lateral Oblique (MLO) views of both breasts obtained with direct digital capture. The exam was evaluated by CAD version 8.3.17. Findings: This is a negative mammogram (ACR Category 1). There is a stablefibroglandular pattern without significant change from prior studies. There is no mammographic evidence of cancer. The breasts are predominately fatty. CONCLUSION: This is a NEGATIVE mammogram (ACR Category 1). Routine screening mammography is recommended with the frequency dependentupon the patients age and breast cancer risk factors. A letter has been sent to this patient by the breast imaging center. Madeline Klein MD IMG MAMMO ORDERABLE S documented in this encounter Visit Diagnoses Not on filedocumented in this encounter Care Teams Compress Trucker Relationship Specialty Start Date End Date Madeline Klein MD [address] [place] [id number] PCP - General 01/24/14 03/20/22 documented as of this encounter
--- OUTSIDE RECORDS SUMMARY | 2024-05-14 15:16 | XMS_ITS | Encounter Summary ---
Author Organization [facility] [place] [address] Care Team Providers Care Pre Assembly Wirer Name Role Phone Madeline Klein MD Primary Care Provider [phone] Encounter Details Date Type Department Care Team (Late st Contact Info) Description 05/08/2018 [facility]phone [facility] [address] [place] [address] Stephanie Bradley LPN Social History Tobacco Use Types Packs/Day Years Used Date Smoking Tobacco: Never Smokeless Tobacco: Never Sex and Gender Information Value Date Recorded Sex Assigned at Not on file Gender Identity Not on file Sexual Orientation Not on file documented as of this encounter Miscellaneous Notes * Telephone Encounter - Stephanie Bradley LPN - 05/08/2018 1:12 PM EDT Called and L/M for Theresa asking if the area that was being treated on the nose is not resolved orseems to be getting worse to please call. * Telephone Encounter - Stephanie Bradley LPN - 05/08/2018 1:12 PM EDT ----- Message from Evan Nolasco III, MD sent at 05/02/2018 10:17 PM EDT ----- Please check on the lesion on her nose we treated with efudex. Thanks. See as planned if needed, sooner if problems arise. documented in this encounter Plan of Treatment Not on file documented as of this encounter Visit Diagnoses Not on filedocumented in this encounter Care Teams Pre Assembly Wirer Relationship Specialty Start Date End Date Madeline Klein MD [address] [place] [address] PCP - General 01/24/14 03/20/22 documented as of this encounter
--- OUTSIDE RECORDS SUMMARY | 2024-05-14 15:16 | XMS_ITS | Encounter Summary ---
Author Organization [facility] [place] [address] Care Team Providers Care Tower Cleaner Name Role Phone Madeline Klein MD Primary Care Provider Encounter Details Date Type Department Care Team (Late st Contact Info) Description 04/23/2019 Telephone Dermatology at [facility] [address] [place] [phone] Sir[facility] Goldstein, [facility] Social History Tobacco Use Types Packs/Day Years Used Date Smoking Tobacco: Never Smokeless Tobacco: Never Sex and Gender Information Value Date Recorded Sex Assigned at Not on file Gender Identity Not on file Sexual Orientation Not on file documented as of this encounter Miscellaneous Notes * Telephone Encounter - Sirisha Goldstein - 04/23/2019 8:56 AM EDT Patient returned my call and let me know that she did the treatment for 3 and a half weeks and all the skin stuff is gone. Will give us a call with any issues or if the spots come back. * Telephone Encounter - Sirisha Goldstein - 04/23/2019 8:48 AM EDT I called the patient to see how the lesions we treated with Efudex were doing. Patient did not answer. I left a voicemail asking them to please return the call at their convenience . * Telephone Encounter - Sirisha Goldstein - 04/23/2019 8:47 AM EDT ----- Message from Evan Nolasco III, MD sent at 04/20/2019 1:16 PM EDT ----- Please check on the lesions on the cheek we treated with efudex. Thanks. See as planned if needed, sooner if problems arise. documented in this encounter Plan of Treatment Not on file documented as of this encounter Visit Diagnoses Not on filedocumented in this encounter Care Teams Tower Cleaner Relationship Specialty Start Date End Date Madeline Klein MD [address] [place] [address] PCP - General 01/24/14 03/20/22 documented as of this encounter
--- OUTSIDE RECORDS SUMMARY | 2024-05-14 15:16 | XMS_ITS | Encounter Summary ---
Author Organization [facility] [place] [address] Care Team Providers Care Houseperson Name Role Phone Madeline Klein MD Primary Care Provider [phone] Reason for Visit * Reason Comments Skin Check Encounter Details Date Type Department Care Team (Late st Contact Info) Description 03/30/2019 10:30 AM EDT Office Visit Dermatology at [facility] [address] [place] [address] Evan Nolasco III, MD [facility] [address] [place] [address] [place] (actinic keratosis); Seborrheic keratosis; Cat angioma; Multiple benign nevi; History of nonmelanoma skin cancer; Skin exam for malignant neoplasm Social History Tobacco Use Types Packs/Day Years Used Date Smoking Tobacco: Never Smokeless Tobacco: Never Sex and Gender Information Value Date Recorded Sex Assigned at Not on file Gender Identity Not on file Sexual Orientation Not on file documented as of this encounter Progress Notes * Shayla Campos CMA - 03/30/2019 10:30 AM EDT DERMATOLOGY ESTABLISHED PATIENT CLINIC NOTE Date of service: 03/30/2019 Theresa Mccauley : 1950 Provider: Evan Nolasco MD PROBLEM: Full skin exam SKIN HISTORY: BCC, right forehead s/p Mohs 02/2013 No family history of Melanoma HPI Theresa Mccauley is a 68 y.o. female with a history of BCC. Pt last seen on 03/17/18. Established patient to me here today for a full skin exam. Pt denies any other area of concern at this time. She used efudex with good results last year Her last year and she has been traveling. Procedure Screening Questions: Allergy to lidocaine or epinephrine:??No Blood thinners: No Pacemaker/defibrillator:??No Heart valves:??No Joint replacements:??No ADR: Allergies Allergen Reactions ??? Sulfa (Sulfonamide Antibiotics) CIS - Hives ??? Caffeine ??? Penicillins CURRENT MEDICATIONS: Current Outpatient Medications Medication Sig Dispense Refill ??? fluorouracil (EFUDEX) 5 % Cream Apply to the malar cheeks and nose (avoid creases) twice daily for 2-3 weeks 40 g 0 ??? MULTIVITAMIN W-MINERALS/LUTEIN (CENTRUM SILVER ORAL) Take [...] complaints EXAM General: NAD, pleasant, cooperative Skin: The patient was asked to disrobe to the level of their comfort. Full skin examination of the scalp, hair, head, face, neck, back, chest, abdomen, right and left upper extremities, right and left lower extremities and buttocks was normal with the exception of the findings listed below. Genitalia not examined. Significant skin findings: A. Right cheek: 0.2-0.3cm scaly irregular pink papule- B. Trunk and extremities: 0.4-0.6cm brown papules with waxy, stuck-on appearance. C. Back: Multiple 0.2-0.4cm bright red, well-demarcated papules D. Back: Multiple, 0.3-0.5cm, medium-brown, evenly-pigmented macules and papules. No pigmented lesions suspicious for melanoma. E. Right forehead: well healed scar- S/P BCC ASSESSMENT/PLAN: A. Actinic Keratosis- right cheek - Recommend applying Rx: spot treat with Efudex (she has at home) to the affected skin of the rightcheek Use BID x 2 -3 weeks. Stop and allow site to heal Call if problems arise - - Advised patient to return to clinic should the lesion not resolve. B. Seborrheic Keratosis (asymptomatic)- trunk Monitor for change or symptoms - Etiology discussed - Patient reassured lesions are benign in nature - Explained that these are hereditary, adult onset and acquired. - Can develop anywhere on the body except for palms or soles - Treatment of an asymptomatic seborrheic keratosis is considered a cosmetic procedure and is not covered by insurance. C. Cat Angiomas- trunk - Benign. No treatment necessary. - Reassured about benign nature and natural history. D. Benign appearing nevi with even pigmentation and well defined margins are noted (asymptomatic) - Discussed benign nature of lesion and provided reassurance - No treatment necessary at this time - Observe skin for change in color, size or character. Call if such occur. E. History of Non-Melanoma skin cancer - No clinical evidence of reoccurrence today. RTC - 1 year for a full skin exam or sooner as needed. H/x NMSC. Reminder placed in scheduling system. I am documenting this encounter acting as the scribe for and in the presence of Dr. Nolasco.: YASMIN Blunt and Dagoberto Lyon I performed the above scribed service and agree with the accuracy of the documentation in this encounter. Evan Nolasco MD Section of Dermatology [facility] documented in this encounter Plan of Treatment Not on file documented as of this encounter Visit Diagnoses Diagnosis [place] (actinic keratosis) Actinic keratosis Seborrheic keratosis Other seborrheic keratosis Cat angioma Nevus, non-neoplastic Multiple benign nevi Benign neoplasm of skin, site unspecified History of nonmelanoma skin cancer Personal history of other malignant neoplasm of skin Skin exam for malignant neoplasm Screening for malignant neoplasm of the skin documented in this encounter Care Teams Houseperson Relationship Specialty Start Date End Date Madeline Klein MD [address] [place] [address] PCP - General 01/24/14 03/20/22 documented as of this encounter
--- OUTSIDE RECORDS SUMMARY | 2024-05-14 15:16 | XMS_ITS | Encounter Summary ---
Author Organization [facility] [place] [address] Care Team Providers Care Equipment Man Name Role Phone Madeline Klein MD Primary Care Provider Encounter Details Date Type Department Care Team (Late st Contact Info) Description 10/17/2020 10:17 AM EDT - 10/17/2020 11:59 PM EDT Hospital Encounter Mammography/[place] [address] Madeline Klein MD [address] [place] [address] [address] [email or web address] [address] [place], [place] [id number] Visit for screening mammogram Discharge Disposition: Home Social History Tobacco Use [...] = 1/2 Tablet(s), PO, Once daily 04/14/2006 fluorouracil (EFUDEX) 5 % Cream Apply to the malar cheeks and nose (avoid creases) twice daily for 2-3 weeks 40 g 03/03/2017 03/21/2022 documented as of this encounter Plan of Treatment Not on file documented as of this encounter Procedures Procedure Name Priority Date/Time Associated Diagnosis Comments MAMMO SCREENING CAD AND BETHEL BILATERAL Routine 10/17/2020 10:30 AM EDT Visit for screening mammogram documented in this encounter Results * Mammo Screening Cad and Bethel Bilateral (10/17/2020 10:30 AM EDT) Anatomical Region Laterality Modality Breast Bilateral Mammography Narrative 10/17/2020 10:56 AM EDT BILATERAL MAMMOGRAPHY REASON FOR EXAM: ROUTINE MAMMO; LAST MAMMO 03/30/19 TECHNIQUE: CC and MLO views were obtained of each breast using standard 2-D mammography as well as 3-D tomosynthesis. Computer aided detection was used. Comparison: This is compared with prior images. FINDINGS: There are scattered areas of fibroglandular density. There are no suspicious microcalcifications, masses, or areas of distortion. The pattern is stable. Stable scattered benign-appearing calcifications. CONCLUSION: No mammographic evidence of malignancy. RECOMMENDATION: Routine screening. A result letter has been sent to this patient by the [facility]. BIRADS CATEGORY 2: Benign findings. * ??Regular screening mammograms starting between age 40 and 50 reduces the risk of from breast cancer. * ??All screening tests have both risks and benefits. These risks and benefits should be assessed for each individual patient through discussion with their provider to determine their preferred breast cancer screening schedule. * ??Women should report any breast changes to a health care provider right away. * ??Some women, because of their family history, a genetic tendency, or other factors, should be screened with annual breast MRI as well as with mammograms. (The number of women who fall into this category is very small). Patients and health care providers should discuss each patients history to decide if earlier screening and/or breast MRI are appropriate. * ??Screening should continue as long as a woman is in good health and is expected to live 10 years or longer. * ??Screening mammography may not detect 10-15% of breast cancers. Thank you for letting us participate in the care of this patient. ??If you are a health care provider and have any questions regarding this report, please contact the number below. ??For patients who have questions please contact the health career and technology education teacher that requested your imaging first. ? Electronically signed by: Hilario Quispe MD, [facility] ([phone]), at 10/17/2020 10:56 AM Madeline Klein MD IMG MAMMO ORDERABLE S documented in this encounter Visit Diagnoses Diagnosis Visit for screening mammogram Other screening mammogram documented in this encounter Care Teams Equipment Man Relationship Specialty Start Date End Date Madeline Klein MD [address] [place] [address] PCP - General 01/24/14 03/20/22 documented as of this encounter
--- OUTSIDE RECORDS SUMMARY | 2024-05-14 15:16 | XMS_ITS | Encounter Summary ---
Author Organization [facility] [place] [address] Care Team Providers Care Belt Repairer Name Role Phone Carla Roberts MD Primary Care Provider Encounter Details Date Type Department Care Team (Late st Contact Info) Description 05/04/2024 12:08 PM EDT - 05/04/2024 11:59 PM EDT Hospital Encounter Mammography/[place] [phone] Carla Roberts MD [address] [place] [id number] Encounter for screening mammogram for breast cancer [...] Sig Dispensed Refills Start Date End Date atorvastatin (Lipitor) 40 mg tablet Take 40 mg by mouth nightly. 04/20/2024 hydroCHLOROthiazide (Hydrodiuril) 25 mg Tablet Take 25 [...] [facility] BIRADS CATEGORY 1: NEGATIVE [12392] Electronically signed by: KENTON CHEN MD [facility] at [address] [address] Your breast imaging exam done on: ??05/04/24 [...] The pattern is stable. Carla Roberts MD IMG MAMMO ORDERABLES documented in this encounter Visit Diagnoses Diagnosis Encounter for screening mammogram for breast cancer documented in this encounter Care Teams Belt Repairer Relationship Specialty Start Date End Date Carla Roberts MD [address] [place] [address] [place] [address] PCP - General Family Medicine 03/21/22 documented as of this encounter
--- OUTSIDE RECORDS SUMMARY | 2024-05-14 15:16 | XMS_ITS | Encounter Summary ---
Author Organization [facility] [place] [address] Care Team Providers Care Blooming Mill Supervisor Name Role Phone Madeline Klein MD Primary Care Provider Encounter Details Date Type Department Care Team (Late st Contact Info) Description 03/03/2017 10:15 AM EDT - 03/03/2017 11:59 PM EDT Hospital En[place] [address] Madeline Klein MD [address] [place] [address] [facility] [address] [place], [place] [id number] Encounter for screening mammogram for breast cancer [...] MAMMO SCREENING CAD AND BETHEL BILATERAL Routine 03/03/2017 10:40 AM EDT Encounter for screening mammogram for breast cancer documented in this encounter Results * Mammo Screen CAD and Bethel Bilat (Generic) (03/03/2017 10:40 AM EDT) Anatomical Region Laterality Modality Breast Bilateral Mammography Narrative 03/03/2017 11:12 AM EDT BILATERAL MAMMOGRAPHY REASON FOR EXAM: [...] CONCLUSION: No mammographic evidence of malignancy. RECOMMENDATION: The [employer] and The Society of Breast Imaging recommend annual screening beginning at age 40 for the general female population. Screening should continue as long as a woman is in good health and is expected to live 10 more years or longer. All women should be familiar with the known benefits, limitations, and potential harms linked to breast cancer screening. They should also know how their breasts normally look and feel and report any breast changes to a health care provider right away. Some women - because of their family history, a genetic tendency, or certain other factors - should be screened with MRIs along with mammograms. (The number of women who fall into this category is very small.) The patient and health care provider should discuss the patient history and decide if earlier screening and breast MRI are appropriate. A result letter has been sent to this patient by the [facility]. BIRADS CATEGORY 1: NEGATIVE Madeline Klein MD IMG MAMMO ORDERABLE S documented in this encounter Visit Diagnoses Diagnosis Encounter for screening mammogram for breast cancer documented in this encounter Care Teams Blooming Mill Supervisor Relationship Specialty Start Date End Date Madeline Klein MD [address] [place] [address] PCP - General 01/24/14 03/20/22 documented as of this encounter
--- OUTSIDE RECORDS SUMMARY | 2024-05-14 15:16 | XMS_ITS | Encounter Summary ---
Author Organization [facility] [place] [address] Care Team Providers Care Cutter Machine Name Role Phone Madeline Klein MD Primary Care Provider Encounter Details Date Type Department Care Team (Late st Contact Info) Description 02/26/2016 8:08 AM EDT - 02/26/2016 11:59 PM EDT Hospital [place] [address] Madeline Klein MD [address] [place] [address] [address] [facility] 1 [place], [place] [id number] Visit for screening mammogram Discharge Disposition: Home [...] Associated Diagnosis Comments MAMMO SCREENING CAD AND ARNULFO BILATERAL Routine 02/26/2016 8:36 AM EDT Visit for screening mammogram documented in this encounter Results * Mammo Digital Bilateral Screening With CAD and Tomosynthesis (02/26/2016 8:36 AM EDT) Anatomical Region Laterality Modality Breast Bilateral Mammography Narrative 02/26/2016 9:33 AM EDT BILATERAL MAMMOGRAPHY REASON FOR EXAM: Screening TECHNIQUE: CC and MLO views were obtained of each breast using standard 2-D mammography as well as 3-D tomosynthesis. Computer aided detection was used. This is compared with prior images. FINDINGS: ??The breasts are almost entirely fatty. There are no suspicious microcalcifications, masses, or areas of distortion. The pattern is stable. CONCLUSION: No mammographic evidence of malignancy. RECOMMENDATION: The [employer] and The Society of [...] mammogram documented in this encounter Care Teams Cutter Machine Relationship Specialty Start Date End Date Madeline Klein MD [address] [place] [address] PCP - General 01/24/14 03/20/22 documented as of this encounter
--- OUTSIDE RECORDS SUMMARY | 2024-05-14 15:16 | XMS_ITS | Encounter Summary ---
Author Organization [facility] [place] [address] Care Team Providers Care Footwear Sales Representative Name Role Phone Carla Roberts MD Primary Care Provider [phone] Encounter Details Date Type Department Care Team (Late st Contact Info) Description 03/21/2022 10:15 AM EDT Office Visit Dermatology at [facility] [address] [place] [address] Shiloh Hall MD [facility] [place] [place] [address] History of basal cell carcinoma (BCC); Lentigines; Inflammatory papule; Seborrheic keratoses; Actinic skin damage; Skin cancer screening; Cat angioma; Multiple benign nevi Social History Tobacco Use Types Packs/Day Years Used Date Smoking Tobacco: Never Smokeless Tobacco: Never Sex and Gender Information Value Date Recorded Sex Assigned at Not on file Gender Identity Not on file Sexual Orientation Not on file documented as of this encounter Progress Notes * Shiloh Hall MD - 03/21/2022 10:15 AM EDT Images from the original note were not included. DEPARTMENT OF DERMATOLOGY Medical Dermatology Clinic Provider: Shiloh Hall MD Patient's preferred name Theresa Preferred contact method for results []Phone []myD-H [x]Letter Detailed phone message OK? Are there any other people with whom we may discuss your care? Past Medical History Date, location, treatment Melanoma N Dysplastic nevi N SCC N BCC 01/29/2013 BCC, right forehead, s/p Mohs AKs Y, 5FU UV Exposure & Protection N Other relevant past medical history N Family History Details Melanoma N NMSC N Other relevant family history N Social History Occupation: Hobbies: Other: Pre-Procedure Questions Details Allergy to lidocaine, epinephrine, Dermabond, chlorhexidine, or adhesives N Bleeding disorder or blood thinners N Pacemaker, defibrillator, deep brain stimulator, cochlear implant N History of Present Illness: Theresa Mccauley is a 71 y.o. Patient returns to clinic today for a full skin exam. - Patient denies any pruritic, painful, bleeding, nonhealing, or growing/changing lesions of concern today. - Would like a refill of Efudex that she usually uses to treat pre-cancers 1-2 times a year. - Brown lesion below right breast that is getting slightly larger. - Rash on left foot that flares every summer. Last visit at Dermatology: 10/17/2020 Medications: Reviewed in eD-H Allergies: Reviewed in eD-H Skin Examination: Full skin examination: Patient asked to undress to their comfort level. Verbalized that the provider's preference is that patient remove all clothing and that the provider will not examine areas patient elects to keep covered. Examination of the scalp, hair, head, face, ears, neck, chest, axillae, abdomen, back, buttocks, and upper and lower extremities was normal with the exception of the findings below. Genitalia not examined. Assessment/Plan #. History of BCC - Well healed scar(s) on the right forehead. - NER; will continue to clinically monitor # Solar lentigines - 0.3-0.6cm light-brown evenly pigmented, well-demarcated macules in a photodistributed pattern on the face, trunk and extremities. - Recommend diligent sun protection (hats/shade/clothing/sunscreen) - Discussed warning signs of skin cancer # Melanocytic nevi - Scattered medium-brown macules and papules on the head, trunk, and extremities. - Morphology reassuring for benign nevi. - Reassured of benign appearance on exam today. - Reviewed warning signs of skin cancer - Recommend daily sun protection with protective clothing and SPF 30+ #. Inflammatory Papule - On the back and right lower leg there are two follicularly based pink papules with ingrown hair - Reassured patient of benign appearance. - Monitor for resolution # Seborrheic keratoses - wilks/brown waxy stuck-on papules and plaques on the trunk and extremities. - Reassured of the benign nature of these lesions - No treatment needed # Cat angiomas - scattered on the trunk and extremities are bright red smooth papules. - Reassured of the benign nature of these lesions. No treatment needed. #. Mild Diffuse Actinic Damage - On forehead and bilateral cheeks there are multiple very thin pinkgritty plaques - Discussed and reviewed diagnosis and treatment options; LN2 or topical chemotherapy cream (Efudex). - Patient elects to use Efudex - Refill and continue Rx: 5-fluorouracil (Efudex) 5% cream: Apply twice daily (morning and night) to the cheeks for 2-3 weeks - Reviewed expectations and typical reaction to treatment. Redness, crusting, swelling and tenderness of treated skin expected to develop during treatment, and is a sign that the medication is working. Warned not to get in eyes. Discussed using medication as tolerated and stopping use for a day or two if inflammation becomes too intense or patient experiences discomfort. For any severe discomfort or side effects, patient was encouraged to call for further advice and possible evaluation. Other: ??? Sun protection discussed (protective clothing and SPF30+ broad-spectrum sunscreen) RTC: 1 year FSE, Hx of BCC, sooner as needed []Note routed to apartment house manager [x]Recall placed in scheduling system []Appointment scheduled at checkout Scribe attestation: Mel Andres [facility] has performed the documentation for this encounter in thepresence of and acting as a scribe for Shiloh Hall MD. I performed the above scribed service and agree with the accuracy of the documentation in this encounter. Reviewed and signed by: Shiloh Hall MD Derm[facility]ology [facility] documented in this encounter Plan of Treatment Not on file documented as of this encounter Visit Diagnoses Diagnosis History of basal cell carcinoma (BCC) Lentigines Other dyschromia Inflammatory papule Other specified disorder of skin Seborrheic keratoses Actinic skin damage Other chronic dermatitis due to solar radiation Skin cancer screening Screening for malignant neoplasm of the skin Cat angioma Nevus, non-neoplastic Multiple benign nevi Benign neoplasm of skin, site unspecified documented in this encounter Care Teams Footwear Sales Representative Relationship Specialty Start Date End Date Carla Roberts MD [address] [place] [address] PCP - General Family Medicine 03/21/22 documented as of this encounter
--- OUTSIDE RECORDS SUMMARY | 2024-05-14 15:16 | XMS_ITS | Encounter Summary ---
Author Organization [facility] [place] [address] Care Team Providers Care Substation Mechanic Name Role Phone Madeline Klein MD Primary Care Provider Encounter Details Date Type Department Care Team (Late st Contact Info) Description 02/26/2016 10:30 AM EDT Office Visit Dermatology at [facility] [address] [place] [address] Evan Nolasco III, MD [facility] [address] [place] [address] Seborrheic keratosis, inflamed; Skin tag; Cat angioma; History of basal cell carcinoma Social History Tobacco Use Types Packs/Day Years Used Date Smoking Tobacco: Never Sex and Gender Information Value Date Recorded Sex Assigned at Not on file Gender Identity Not on file Sexual Orientation Not on file documented as of this encounter Progress Notes * Estrella Dudley LPN - 02/26/2016 10:30 AM EDT DERMATOLOGY ESTABLISHED PATIENT CLINIC NOTE Date of service: 02/26/2016 Theresa Mccauley : 1950 Provider: Evan Nolasco MD PROBLEM: skin cancer screening SKIN HISTORY: BCC, right forehead s/p Mohs 02/2013 No family history of Melanoma HPI Theresa Mccauley is a 65 y.o. year old female.Established patient of mine. Last 02/10/15. She is here for a full skin check. Her only area of concern is a new brown spot on her right cheek. She has had a BCC in the past on the forehead ADR: Allergies Allergen Reactions ??? Sulfa (Sulfonamide [...] comfort. A total body skin exam except forareas covered by underwear was performed. This includes examination of the skin of the face, ears, neck, chest, axillae, left and right upper and lower extremities, hands and feet, abdomen, and except the areas covered by underwear were not examined. Significant skin findings: A. Left nasolabial fold (1) - irritated brown waxy papule, excoriations noted. B. Base of neck and bilateral inframammary - 0.2-0.4cm, sessile, flesh-colored papules - not sympromatic C. Trunk - 0.2-0.4cm bright red, well-demarcated papules D. Right forehead - Well-healed surgical scar with no clinical evidence of recurrence noted ASSESSMENT/PLAN: A. Inflamed Seborrheic Keratosis - left nasolabial fold (1) - I discussed this condition with the patient and explored therapeutic options. I recommended this be treated with LN2, patient is in agreement to this treatment plan. Instructed to call if areas do not resolve as expected or if problems arise. If lesions fail to resolve, further work-up may be needed. Procedure Note: Procedure: Destruction of lesion(s) with cryotherapy. Number: 1 Location: as above Discussed procedure and expectations including risks (including risk of hypopigmentation) and benefits. Verbal consent obtained. Frozen with LN2, 15-30 second thaw time, TWICE. There were no complications; the patient tolerated the procedure well. Post-procedure expectations and wound care were reviewed. B. Skin Tags - base of neck and bilateral inframammary (nonsymptomatic) - Discussed benign nature of lesion and provided reassurance - No treatment necessary at this time - Observe skin for change in color, size or character. Call if such occur C. Cat Angioma(s) - trunk (nonsymptomatic) - Discussed benign nature of lesion and provided reassurance - No treatment necessary at this time - Observe skin for change in color, size or character. Call if such occur D. History of Basal Cell Carcinoma - right forehead - Well-healed surgical scar, no signs of recurrence. -Continue to monitor Discussed importance of sun protection, sun avoidance strategies, protective clothing, and sunscreen. RTC in 9-12 months, sooner if needed. Reminder placed in scheduling system. Instructed to call if problems arise. Note Initiated by: JAMARCUS GRANADOS has performed the documentation for this encounter in the presence of and acting asa scribe for . I performed the above scribed service and agree with the accuracy of the documentation in this encounter. Evan Nolasco MD Section of Dermatology [facility] documented in this encounter Plan of Treatment Not on file documented as of this encounter Visit Diagnoses Diagnosis Seborrheic keratosis, inflamed Inflamed seborrheic keratosis Skin tag Unspecified hypertrophic and atrophic condition of skin Cat angioma Nevus, non-neoplastic History of basal cell carcinoma Personal history of other malignant neoplasm of skin documented in this encounter Care Teams Substation Mechanic Relationship Specialty Start Date End Date Madeline Klein MD [address] [place] [address] PCP - General 01/24/14 03/20/22 documented as of this encounter
--- OUTSIDE RECORDS SUMMARY | 2024-05-14 15:16 | XMS_ITS | Encounter Summary ---
Author Organization [facility] Address [facility] [place] [address] Care Team Providers Care Asphalt Smoother Name Role Phone Candelaria Abraham MD Primary Care Provider [phone] Reason for Visit * Reason Comments Suture / Staple Removal Encounter Details Date Type Department Care Team (Late st Contact Info) Description 03/10/2013 9:00 AM EDT Clinical Support Dermatology at [facility] [address] [place] [address] Dakota Austin MD [facility] [address] [place] [address] Visit for suture removal (Primary Dx) Discharge Disposition: Home Social History Tobacco Use Types Packs/Day Years Used Date Smoking Tobacco: Never Sex and Gender Information Value Date Recorded Sex Assigned at Not on file Gender Identity Not on file Sexual Orientation Not on file documented as of this encounter Progress Notes * Helen Bustamante LPN - 03/10/2013 9:07 AM EDT HPI: Patient is a 62 y.o. female with history of basal cell carcinoma, right forehead, s/p Mohs repaired by A to T flap repair who is presenting for suture removal. Denies complications. Exam: General: No acute distress Skin: Limited examination of right forhead shows a well-healed flap. There is no erythema, dehiscence, ecchymosis, or drainage. The surgical site was also examined by Mamta Saldaña MD. Photo taken with pt consent. Assessment and Plan 1. Basal cell carcinoma, right forhead s/p Mohs with A to T flap repair. Sutures removed. Steri-strips applied. Wound care instructions given. Follow up in 2-3 months. Is there another skin cancer that requires treatment? No Has this been scheduled? N/A documented in this encounter Plan of Treatment Not on file documented as of this encounter Visit Diagnoses Diagnosis Visit for suture removal- Primary Encounter for removal of sutures documented in this encounter Care Teams Asphalt Smoother Relationship Specialty Start Date End Date Candelaria Abraham MD [address] [place] [address] PCP - General 05/29/10 01/23/14 documented as of this encounter
--- OUTSIDE RECORDS SUMMARY | 2024-05-14 15:16 | XMS_ITS | Encounter Summary ---
Author Organization [facility] [place] [address] Care Team Providers Care Model Artists' Name Role Phone Candelaria Abraham MD Primary Care Provider [phone] Reason for Visit * Reason Onset Date Comments Post Procedure Call 03/04/2013 Encounter Details Date Type Department Care Team (Late st Contact Info) Description 03/04/2013 Telephone Dermatology at [facility] [address] [place] [address] Mamta Lobo MD [facility] [address] [place] [address] Post Procedure Call Social History Tobacco Use Types Packs/Day Years Used Date Smoking Tobacco: Never Sex and Gender Information Value Date Recorded Sex Assigned at Not on file Gender Identity Not on file Sexual Orientation Not on file documented as of this encounter Miscellaneous Notes * Telephone Encounter - Mamta Lobo - 03/04/2013 7:59 AM EDT MOHS SURGERY - POST-PROCEDURE TELEPHONE NOTE Ms. Theresa Mccauley was called on 1st day post-operatively for follow up. Unable to reach patient. Left voice message on answering machine encouraging pt to call with any questions or concerns. Mamta Saldaña MD Resident in Dermatology [facility] I am being supervised by the supervising attending listed below, who is the attending of record forthis patient. Dakota Austin MD, PhD Section of Dermatology [facility] documented in this encounter Plan of Treatment Not on file documented as of this encounter Visit Diagnoses Not on filedocumented in this encounter Care Teams Model Artists' Relationship Specialty Start Date End Date Candelaria Abraham MD [address] [place] [address] PCP - General 05/29/10 01/23/14 documented as of this encounter
--- OUTSIDE RECORDS SUMMARY | 2024-05-14 15:16 | XMS_ITS | Encounter Summary ---
Author Organization [facility] [place] [address] Care Team Providers Care Appliance Sales Associate Name Role Phone Madeline Klein MD Primary Care Provider Encounter Details Date Type Department Care Team (Late st Contact Info) Description 03/17/2018 9:01 AM EDT - 03/17/2018 11:59 PM EDT Hospital [place] [address] Madeline Klein MD [address] [place] [address] [facility] [address] [place], [place] [id number] Encounter for screening mammogram for breast cancer [...] MAMMO SCREENING CAD AND BETHEL BILATERAL Routine 03/17/2018 9:25 AM EDT Encounter for screening mammogram for breast cancer documented in this encounter Results * Mammo Screening Cad and Bethel Bilateral (03/17/2018 9:25 AM EDT) Anatomical Region Laterality Modality Breast Bilateral Mammography Narrative 03/17/2018 10:06 AM EDT BILATERAL MAMMOGRAPHY REASON FOR EXAM: [...] No mammographic evidence of malignancy. RECOMMENDATION: The [employer] [place] [employer] and The Society of [...] Breast Imaging Center. BIRADS CATEGORY 1: NEGATIVE Madeilne Klein MD IMG MAMMO ORDERABLE S documented in this encounter Visit Diagnoses Diagnosis Encounter for screening mammogram for breast cancer documented in this encounter Care Teams Appliance Sales Associate Relationship Specialty Start Date End Date Madeline Klein MD [address] [place] [address] [address] [place] [id number] PCP - General 01/24/14 03/20/22 documented as of this encounter
--- OUTSIDE RECORDS SUMMARY | 2024-05-14 15:16 | XMS_ITS | Encounter Summary ---
Author Organization [facility] [place] [address] Care Team Providers Care Building Appraiser Name Role Phone Madeline Klein MD Primary Care Provider [phone] Reason for Visit * Reason Comments Skin Check Encounter Details Date Type Department Care Team (Late st Contact Info) Description 01/24/2014 10:00 AM EDT Follow-Up Dermatology at [facility] [address] [place] [address] Evan Nolasco III, MD [facility] [address] [place] [address] Warts (Primary Dx); AK (actinic keratosis); History of skin cancer Discharge Disposition: Home Social History Tobacco Use Types Packs/Day Years Used Date Smoking Tobacco: Never Sex and Gender Information Value Date Recorded Sex Assigned at Not on file Gender Identity Not on file Sexual Orientation Not on file documented as of this encounter Progress Notes * Helen Jaimes LPN - 01/24/2014 10:42 AM EDT DERMATOLOGY ESTABLISHED PATIENT CLINIC NOTE Date of service: 01/24/2014 Theresa Mccauley : 1950 Provider: Evan Nolasco MD PROBLEM: Skin cancer and pigmented lesion examination SKIN HISTORY: BCC, right forehead s/p Mohs 02/2013 No family history of Melanoma PATIENT SCREENING QUESTION Defibrillator/Pacemaker: No DO YOU HAVE ARTIFICIAL JOINTS? No Heart Valves: No Blood Thinners: No Prophylactic Antibiotics: No HPI Theresa Mccauley is a 63 y.o. year old female. Patient presents for full skin examination today. No specific concerns. Current Outpatient Prescriptions Medication Sig Dispense Refill ??? MULTIVITAMIN W-MINERALS/LUTEIN (CENTRUM SILVER ORAL) Take by mouth. ??? CALCIUM CARBONATE/VITAMIN D3 (CALCIUM+D ORAL) Take by mouth. ??? lisinopril-hydrochlorothiazide (PRINZIDE;ZESTORETIC) 10-12.5 mg per tablet Take 1 tablet by mouth daily. ??? [DISCONTINUED] ascorbic acid (VITAMIN C) 500 mg tablet Take 500 mg by mouth daily. ??? atenolol (TENORMIN) 25 mg tablet 12.5MG = 1/2 Tablet(s), PO, Once daily ADR: Allergies Allergen Reactions ??? Sulfa (Sulfonamide Antibiotics) CIS - Hives ??? Caffeine ??? Penicillins Patient Active Problem List Diagnosis Code ??? Skin lesion of face 709.9 ??? Hypertension 401.9 ??? BCC (basal cell carcinoma of skin) 173.91 ROS General: feeling well Skin: denies other skin complaints EXAM General: NAD, pleasant, cooperative Skin: A total body skin exam except for areas covered by underwear was performed. This includes examination of the skin of the face, ears, neck, chest, axillae, left and right upper and lower extremities, hands and feet, abdomen, and except the areas covered by underwear were not examined. Significant skin findings: A. Well healed A to T flap on right forehead S/P BCC B. Verrucous papule on right forearm - irritated at times C. 0.2-0.3cm scaly irregular pink papule(s) on right cheek and bridge of nose ASSESSMENT/PLAN: A. H/o BCC, right forehead, NER B. Verruca, right forearm Discussed option of LN2 treatment today. Patient agreed. Procedure: The verruca was treated with liquid nitrogen. The patient tolerated the procedure well. C. Actinic keratosis - right cheek, bridge of nose Discussed liquid nitrogen treatment vs. Continue to monitor clinically. Patient wishes to continue to monitor clinically. Encouraged to call with any changes. Follow up: 1 year or sooner as needed. I am documenting this encounter acting as the scribe for and in the presence of Dr. Nolasco.: HELEN JAIMES LPN I performed the above scribed service and agree with the accuracy of the documentation in this encounter. Evan Nolasco MD Section of Dermatology [facility] documented in this encounter Plan of Treatment Not on file documented as of this encounter Visit Diagnoses Diagnosis Warts- Primary Viral warts, unspecified AK (actinic keratosis) Actinic keratosis History of skin cancer Personal history of other malignant neoplasm of skin documented in this encounter Care Teams Building Appraiser Relationship Specialty Start Date End Date Madeline Klein MD [address] [place] [address] PCP - General 01/24/14 03/20/22 documented as of this encounter
--- OUTSIDE RECORDS SUMMARY | 2024-05-14 15:16 | XMS_ITS | Encounter Summary ---
Author Organization [facility] [place] [address] Care Team Providers Care Life Skills Instructor Name Role Phone Madeline Klein MD Primary Care Provider Encounter Details Date Type Department Care Team (Late st Contact Info) Description 03/30/2019 8:43 AM EDT - 03/30/2019 11:59 PM EDT Hospital Encounter Mammography/[place] [address] Madeline Klein MD [address] [place] [address] [facility] [address] [place], [place] [address] Encounter for screening mammogram for breast cancer [...] MAMMO SCREENING CAD AND BETHEL BILATERAL Routine 03/30/2019 9:08 AM EDT Encounter for screening mammogram for breast cancer documented in this encounter Results * Mammo Screening Cad and Bethel Bilateral (03/30/2019 9:08 AM EDT) Anatomical Region Laterality Modality Breast Bilateral Mammography Narrative 03/30/2019 9:23 AM EDT BILATERAL MAMMOGRAPHY REASON FOR EXAM: [...] CONCLUSION: No mammographic evidence of malignancy. RECOMMENDATION: Medical organizations agree that annual screening mammography beginning at age 40 saves the most lives. The risks of screening are negligible compared to dying from breast cancer or suffering from more aggressive treatment required when detected at a later stage. No woman is at low risk for breast cancer. Some women, because of their family history, a genetic tendency, or certain other factors, should be screened with breast MRI along with mammograms. (The number of women who fall into this category is very small). The patient and health care provider should discuss the patient history and decide if earlier screening and breast MRI are appropriate. Screening should continue as long as a woman is in good health and is expected to live 10 years or longer. Screening mammography may not detect 10-15% of breast cancers. Women should report any breast changes to a health care provider right away. A result letter has been sent to this patient by the Breast Imaging Center. BIRADS CATEGORY 1: NEGATIVE Madeline Klein MD IMG MAMMO ORDERABLE S documented in this encounter Visit Diagnoses Diagnosis Encounter for screening mammogram for breast cancer documented in this encounter Care Teams Life Skills Instructor Relationship Specialty Start Date End Date Madeline Klein MD [address] [place] [address] [address] [place] [address] PCP - General 01/24/14 03/20/22 documented as of this encounter
--- OUTSIDE RECORDS SUMMARY | 2024-05-14 15:16 | XMS_ITS | Encounter Summary ---
Author Organization [facility] [place] [address] Care Team Providers Care Smoke Control Supervisor Name Role Phone Madeline Klein MD Primary Care Provider [phone] Reason for Visit * Reason Comments Follow-up Encounter Details Date Type Department Care Team (Late st Contact Info) Description 04/29/2017 9:45 AM EDT Office Visit Dermatology at [facility] [address] [place] [address] Evan Nolasco III, MD [facility] [address] [place] [address] History of actinic keratosis Social History Tobacco Use Types Packs/Day Years Used Date Smoking Tobacco: Never Smokeless Tobacco: Never Sex and Gender Information Value Date Recorded Sex Assigned at Not on file Gender Identity Not on file Sexual Orientation Not on file documented as of this encounter Progress Notes * Racheal Baker LPN - 04/29/2017 9:45 AM EDT DERMATOLOGY ESTABLISHED PATIENT CLINIC NOTE Date of service: 04/29/2017 Theresa Mccauley : 1950 Provider: Evan Nolasco MD PROBLEM: actinic keratoses SKIN HISTORY: BCC, right forehead s/p Mohs 02/2013 No family history of Melanoma ?? HPI Theresa Mccauley is a 66 y.o. year old female. She has a history of actinic damage on her face. She treated her malar cheeks and nose with Efudex for 2.5 weeks. She states she had a brisk result. She has healed and is very pleased with the results. She has not noted any residual areas. ADR: Allergies Allergen Reactions ??? Sulfa (Sulfonamide Antibiotics) CIS - Hives ??? Caffeine ??? Penicillins CURRENT MEDICATIONS: Current Outpatient Prescriptions Medication Sig Dispense Refill ??? fluorouracil (EFUDEX) [...] complaints EXAM General: NAD, pleasant, cooperative Skin: An exam of the skin from the neck up was performed. This includes examination of the skin of the face, ears, scalp, and neck. Significant skin findings: A. S/p Efudex to the face, no residual or new lesions noted. ASSESSMENT/PLAN: A. History of Actinic Keratosis, face Good response to treatment, no residual or new lesions noted. Discussed importance of sun protection, sun avoidance strategies, protective clothing, and sunscreen. RTC in 1 year for full skin exam, sooner if needed. Reminder placed in scheduling [...] encounter. Evan Nolasco MD Section of Dermatology [facility] documented in this encounter Plan of Treatment Not on file documented as of this encounter Visit Diagnoses Diagnosis History of actinic keratosis Personal history of diseases of skin and subcutaneous tissue documented in this encounter Care Teams Smoke Control Supervisor Relationship Specialty Start Date End Date Madeline Klein MD [address] [place] [address] PCP - General 01/24/14 03/20/22 documented as of this encounter
--- OUTSIDE RECORDS SUMMARY | 2024-05-14 15:16 | XMS_ITS | Encounter Summary ---
Author Organization [facility] [place] [address] Care Team Providers Care Financial Analysis Advisor Name Role Phone Madeline Klein MD Primary Care Provider Encounter Details Date Type Department Care Team (Late st Contact Info) Description 05/14/2019 Telephone Dermatology at [facility] [address] [place] [id number] Sirisha Goldstein, [facility] Social History Tobacco Use Types Packs/Day Years Used Date Smoking Tobacco: Never Smokeless Tobacco: Never Sex and Gender Information Value Date Recorded Sex Assigned at Not on file Gender Identity Not on file Sexual Orientation Not on file documented as of this encounter Miscellaneous Notes * Telephone Encounter - Sirisha Goldstein - 05/14/2019 8:19 AM EST I called the patient to see how the lesions we treated were doing. They did not answer, I left a voicemail asking her to please give me a call back. * Telephone Encounter - Sirisha Goldstein - 05/14/2019 8:19 AM EST ----- Message from Evan Nolasco III, MD sent at 05/02/2019 4:27 PM EDT ----- Please check on the lesion on her cheek she treated with efudex. Thanks. See as planned if needed, sooner if problems arise. documented in this encounter Plan of Treatment Not on file documented as of this encounter Visit Diagnoses Not on filedocumented in this encounter Care Teams Financial Analysis Advisor Relationship Specialty Start Date End Date Madeline Klein MD [address] [place] [address] PCP - General 01/24/14 03/20/22 documented as of this encounter
--- OUTSIDE RECORDS SUMMARY | 2024-05-14 15:16 | XMS_ITS | Encounter Summary ---
Author Organization [facility] [place] [address] Care Team Providers Care Honey Grader And Blender Name Role Phone Carla Roberts MD Primary Care Provider Encounter Details Date Type Department Care Team (Late st Contact Info) Description 05/04/2024 9:30 AM EDT Office Visit Dermatology at [facility] [address] [place] [address] Shiloh Hall MD [facility] [place] [place] [address] Skin cancer screening; History of nonmelanoma skin cancer; Neoplasm of unspecified behavior of bone, soft tissue, and skin; Multiple benign melanocytic nevi of both upper extremities, both lower extremities, and trunk; Dermatofibroma; Lentigines; Cat angioma; Seborrheic keratoses; Actinic keratoses Social History Tobacco Use Types Packs/Day Years Used Date Smoking Tobacco: Never Smokeless Tobacco: Never Sex and Gender Information Value Date Recorded Sex Assigned at Not on file Gender Identity Not on file Sexual Orientation Not on file documented as of this encounter Patient Instructions * Patient Instructions* Rabia Prajapati LPN - 05/04/2024 9:30 AM EDT Images from the original note were not included. Treatment and Wound Care Instructions Your treatment today: You have had a shave biopsy of your skin, which is a removal of tissue for examination under a microscope. This wound will heal without stitches. Allow 3-6 weeks for the wound to heal. If bleeding occurs, hold firm pressure against the wound for 15 minutes. If bleeding continues, calls the office or go to your local emergency room. Please allow 1-2 weeks for the biopsy results to return. Your physician or nurse will contact you with the results by phone or letter; follow-up will be discussed at that time. Wound Care Instructions: You will need to keep the dressing placed over the wound dry and intact for 24 hours. Afterwards, perform the following wound care daily: Wash your hands before changing the dressing. Remove the bandage and clean the area with mild soap and water, then gently pat the area dry. Apply a small amount of Vaseline to the area, then cover the wound with a band- aid. Change your dressing daily until the wound is fully healed. A small amount of yellow drainage is part of normal healing. The area might appear as a small depression with redness around the edge of the wound. This is normal. Please contact the office you you notice any of the following signs of infection: increased tenderness, pain, drainage, or redness that becomes hot or hard around the wound. If you have further questions or concerns, please call the office at [phone]. If it is after 5PM, or a holiday or weekend, please call [phone] and ask for the [employer] on-call. How to use 5-fluorouracil (Efudex) 5% cream Area(s) to be treated: cheeks, forehead and nose Treatment length: Twice daily (morning and evening) for 3 weeks. Instructions for use: Wash your hands before applying. Wash area with a gentle cleanser and pat dry. Use a clean fingertip to apply a small amount to the affected area. Use just enough to cover the area with a thin film. Avoid your eyes, nostrils and mouth. (Note: Even when treating the entire face,a pea-sized amount should be sufficient.) Rub cream into skin. Do NOT cover with a Band-Aid or other coverings. Wash your hands after applying. After 1 hour, you may apply moisturizer, sunscreen and/or makeup to the area. What to expect: Reactions vary from person to person. During this treatment, your skin may become red, inflamed, irritated (i.e., burning, crusting, weeping, oozing, etc.) and potentially tender or painful. This is a normal reaction. After the treatment period is complete, your skin will take several weeks to heal completely. For discomfort, you may take Tylenol or ibuprofen. You may also apply wet compresses as well as petroleum jelly, such as Vaseline or Aquaphor, to soothe the skin. While you should expect some [id number] discomfort and tenderness, if pain is excessive and interferes with daily activity or keeps you awake at night, you may pause treatment for 1-2 days. Please contact the clinic if you develop a fever or a thick yellow/honey-colored crust over the treatedarea. Warnings: - Use only as directed. - Do not share this medication. - Do not use other topical or medicated products on the treatment area unless instructed to do so by your doctor. The photos below represent normal reaction during treatment (L-R: Day 6, Day 16, Day 18) Keep out of reach of pets and children documented in this encounter Progress Notes * Shiloh Hall MD - 05/04/2024 9:30 AM EDT Images from the original [...] of Present Illness: Theresa Mccauley is a 73 y.o. Patient returns to clinic today for a FSE. Patient reports a crusty spot on her right jaw line. Recent dryness on her right cheek. Completed Efudex to her bilateral cheeks twice daily x 2 weeks, twice, with 1-2 months in between. Last visit at Dermatology: 03/21/2022 Last visit with this provider: 03/21/2022 Medications: Reviewed in eD-H Allergies: Reviewed in [...] findings below. Genitalia not examined. Assessment/Plan #. Neoplasm of Unspecified Behavior (ddx: ISK vs BCC) - 1 cm bright pink thin papule (Figure 1). - Recommended a skin biopsy to confirm/clarify the nature of the skin lesion. After discussing potential risks (e.g., bleeding, pain, infection, pigment change, scarring, recurrence), patient agreed to proceed. - Patient denies known allergies to lidocaine and epinephrine. Procedure: Skin shave biopsy. Location: Right Upper Back Time of procedure: 954 Indications and expectations, including risks and benefits, discussed. Verbal consent obtained. Skin prepped with alcohol. Local anesthesia administered with 1% xylocaine, 1:100,000 epinephrine. Sample of lesion removed by shave technique to level of dermis and submitted to Pathology. Hemostasis obtained (AlCl3). There were no complications; patient tolerated procedure well. Wound dressed. Post-procedure expectations, wound care, and activity restrictions reviewed. Follow-up based on pathology results. - Instructed patient to contact the clinic if patient has not received the results of this procedure within 3 weeks. #. Actinic Keratoses - Ill-defined, gritty papule(s) on the right cheek x 5, left cheek x 3, forehead x 3, nose x 3. - Explained premalignant potential of these lesions. - Discussed treatment options (LN2, 5-FU) and their respective risks and benefits. - Patient elects to proceed with 5-FU field treatment. - Start Rx 5-fluorouracil (Efudex) 5% cream: Apply a thin layer to affected areas on the cheeks, forehead and nose twice daily (morning and night) as tolerated for 3 weeks. - Patient has medication at home, will call our clinic if and if a refill is needed. - Reviewed expectations, typical reaction, and restrictions on light exposure during treatment. Patient understands that affected area will likely become red, irritated, and tender during treatment and that this is a normal reaction. Discussed option to hold treatment for 1-2 days if inflammation becomes too intense or patient experiences discomfort. Advised patient to call clinic if pain is excessive or infection is suspected. - Cautioned that this medication is toxic to pets. # Melanocytic Nevi- scattered brown macules and papules on trunk and extremities with reassuring pigment pattern on dermoscopy. - Discussed benign appearing nevi based on today's exam - Reviewed the ABCDEs of moles and melanoma with the patient in detail to guide regular self assessment of any pigmented lesions. - Discussed the importance of sun protection and sun avoidance. The patient encouraged to use a broad sunscreen of at least SPF 30, with reapplication every 2 hours, to apply at least 15 minutes prior to sun exposure. - Recommended follow-up with dermatology if any changes in any pigmented lesions are noted or any concerns regarding new lesions arise. #. Dermatofibroma - Firm papule, centrally raised and sclerotic, with peripheral hyperpigmentation and dimpling with lateral pressure on the right lateral knee. - Discussed that these are benign fibrous (scar-like) areas that often occur after trauma, such as insect bites. No treatment necessary. #. Seborrheic Keratoses - [place]-brown papules/plaques with waxy, stuck-on appearance scattered on the head, trunk, and extremities. - Explained that these are hereditary and adult-acquired. Reassured patient of benign nature. No treatment necessary. #. Cat Angiomas - Bright red, well-demarcated papules on the trunk. - Discussed benign nature and provided reassurance. No treatment necessary. #. Lentigines - Light-brown, evenly pigmented, well-demarcated macules scattered on sun-exposed areas of the head, trunk, and extremities. - Discussed benign appearance on exam today and provided reassurance. No treatment necessary at this time. #. H/O BCC - well healed hypopigmented scar located on the right forehead. - NER, will continue to monitor. Figure 1 Photo(s) taken and charted with patient's verbal consent. Other: Sun protection discussed (protective clothing and SPF30+ broad-spectrum sunscreen) handout reviewedand provided. Skin Cancers/Benign Lesions handout reviewed and provided. RTC: 1 year for a FSE, sooner if needed for any skin concerns. []Note routed to administrative secretary [x]Recall placed in scheduling system []Appointment scheduled at checkout Scribe attestation: Rabia Prajapati LPN has performed the documentation for this encounter in the presence of and acting as a scribe for Shiloh Hall MD. I performed the above scribed service and agree with the accuracy of the documentation in this encounter. Reviewed and signed by: Shiloh Hall MD Dermatology [facility] documented in this encounter Plan of Treatment Not on file documented as of this encounter Procedures Procedure Name Priority Date/Time Associated Diagnosis Comments SURGICAL PATHOLOGY, DERMATOLOGY Routine 05/04/2024 9:56 AM EDT Neoplasm of unspecified behavior of bone, soft tissue, and skin documented in this encounter Results * (ABNORMAL) Surgical Pathology, Dermatology (05/04/2024 9:56 AM EDT) Case Report Surgical Pathology Report ? Case: [id number] ? Authorizing Provider: ??Shiloh Hall MD ?Collected: ? 05/04/2024 0956 ? Ordering Location: ? Dermatology at [facility] Received: ?05/04/2024 1058 ? Pathologist: ? Roberta Avendaño MD ? Specimen: ?Back, Upper Right ? 05/13/2024 9:[address] [facility] Final Diagnosis A. Back, Upper Right, shave biopsy: Basal cell carcinoma, superficial pattern, present at the peripheral specimen edge 05/13/2024 9:[address] [facility] Clinical Information A. ISK vs BCC. 1 cm bright pink thin papule. 05/13/2024 9:[address] [facility] Gross Description A. Back, Upper Right. A - Labeled/Fixati ve: Back, upper right, formalin. Quantity/Size: Single, 0.8 x 0.7 x 0.1 cm. Tissue Description: Shave of pink-white skin. Sections/Proce ssing: Inked, trisected and entirely submitted in 1 cassette labeled A1. sns 05/13/2024 9:[address] [facility] Result Note THIS RESULT REQUIRES PHYSICIAN/ANALILIA FOLLOW UP(A) 05/13/2024 9:[address] [facility] Skin SKIN STRUCTURE OF UPPER BACK / Unknown Non Blood Collection / Unknown 05/04/2024 9:56 AM EDT 05/04/2024 10:58 AM EDT Shiloh Hall MD PATHOLOGY/CYTOLOGY [facility] [place] [address] documented in this encounter Visit Diagnoses Diagnosis Skin cancer screening Screening for malignant neoplasm of the skin History of nonmelanoma skin cancer Personal history of other malignant neoplasm of skin Neoplasm of unspecified behavior of bone, soft tissue, and skin Multiple benign melanocytic nevi of both upper extremities, both lower extremities, and trunk Dermatofibroma Benign neoplasm of skin, site unspecified Lentigines Other dyschromia Cat angioma Nevus, non-neoplastic Seborrheic keratoses Actinic keratoses Actinic keratosis documented in this encounter Care Teams Honey Grader And Blender Relationship Specialty Start Date End Date Carla Roberts MD [address] [place] [address] [place] [address] PCP - General Family Medicine 03/21/22 documented as of this encounter
--- OUTSIDE RECORDS SUMMARY | 2024-05-14 15:16 | XMS_ITS | Encounter Summary ---
Author Organization [facility] Address [facility] [place] [address] Care Team Providers Care Marriage And Family Counselor Name Role Phone Madeline Klein MD Primary Care Provider [phone] Encounter Details Date Type Department Care Team (Late st Contact Info) Description 04/16/2017 Telephone Dermatology at [facility] [address] [place] [address] Evan Nolasco III, MD [facility] [address] [address] Social History Tobacco Use Types Packs/Day Years Used Date Smoking Tobacco: Never Smokeless Tobacco: Never Sex and Gender Information Value Date Recorded Sex Assigned at Not on file Gender Identity Not on file Sexual Orientation Not on file documented as of this encounter Miscellaneous Notes * Telephone Encounter - Racheal Schmid LPN - 04/16/2017 1:40 PM EDT ----- Message from Evan Nolasco III, MD sent at 04/05/2017 4:42 PM EDT ----- Please check on how she is doing with the efudex. thanks I called and spoke with Theresa. She states she treated the areas discussed for 2 1/2 weeks and hada brisk reaction. She stopped this past Friday and is healing and peeling. I advised her to applysome Vaseline ointment and she will do so. She is scheduled to see us later this month. documented in this encounter Plan of Treatment Not on file documented as of this encounter Visit Diagnoses Not on filedocumented in this encounter Care Teams Marriage And Family Counselor Relationship Specialty Start Date End Date Madeline Klein MD [address] [place] [address] PCP - General 01/24/14 03/20/22 documented as of this encounter
--- OUTSIDE RECORDS SUMMARY | 2024-05-14 15:16 | XMS_ITS | Encounter Summary ---
Author Organization [facility] [place] [address] Care Team Providers Care Cigar Head Perforator Name Role Phone Madeline Klein MD Primary Care Provider Encounter Details Date Type Department Care Team (Late st Contact Info) Description 02/10/2015 8:50 AM EDT - 02/10/2015 11:59 PM EDT Hospital Encounter [place] [address] CLINIC, Madeline Rubi MD [address] [place] [address] [address] [facility] [place] [address] Discharge Disposition: Home Social History [...] Diagnosis Comments MAMMO SCREENING CAD BILATERAL Routine 02/10/2015 9:11 AM EDT documented in this encounter Results * Mammo Digital Bilateral Screening With Cad (02/10/2015 9:11 AM EDT) Anatomical Region Laterality Modality Breast Bilateral Mammography 02/10/2015 9:11 AM EDT Narrative 02/13/2015 8:42 AM EDT Reason for Exam: Screening ?? Technique: [...] recommended with the frequency dependent upon the patient's age and breast cancer risk factors. ?? A letter has been sent to this patient by the breast imaging center. Procedure Note Christine Shields MD - 02/13/2015 Reason for Exam: Screening Technique: Craniocaudal (CC) [...] is recommended with the frequency dependentupon the patient's age and breast cancer risk factors. A letter has been sent to this patient by the breast imaging center. Madeline Klein MD IMG MAMMO ORDERABLE S documented in this encounter Visit Diagnoses Not on filedocumented in this encounter Care Teams Cigar Head Perforator Relationship Specialty Start Date End Date Madeline Klein MD [address] [place] [address] PCP - General 01/24/14 03/20/22 documented as of this encounter
--- OUTSIDE RECORDS SUMMARY | 2024-05-14 15:16 | XMS_ITS | Encounter Summary ---
Author Organization [facility] [place] [address] Care Team Providers Care Snuff Packing Machine Operator Name Role Phone Madeline Klein MD Primary Care Provider [phone] Reason for Visit * Reason Comments Skin Check Encounter Details Date Type Department Care Team (Late st Contact Info) Description 03/17/2018 10:45 AM EDT Office Visit Dermatology at [facility] [address] [place] [address] Evan Elias III, MD [facility] [address] [address] [place] (actinic keratosis); Seborrheic keratosis; Hx of skin cancer, basal cell; Skin exam for malignant neoplasm Social History Tobacco Use Types Packs/Day Years Used Date Smoking Tobacco: Never Smokeless Tobacco: Never Sex and Gender Information Value Date Recorded Sex Assigned at Not on file Gender Identity Not on file Sexual Orientation Not on file documented as of this encounter Progress Notes * Racheal Baker LPN - 03/17/2018 10:45 AM EDT DERMATOLOGY ESTABLISHED PATIENT CLINIC NOTE Date of service: 03/17/2018 Theresa Mccauley : 1950 Provider: Evan Elias MD PROBLEM: skin cancer screening SKIN HISTORY: BCC, right forehead s/p Mohs 02/2013 No family history of Melanoma ?? HPI Theresa Mccauley is a 67 y.o. year old female with a history of skin cancer in the past here for ongoing surveillance. She has no concerns. She requests a full. ADR: Allergies Allergen Reactions ??? Sulfa (Sulfonamide [...] findings: A. 0.2-0.3cm scaly irregular pink papule(s) on the dorsum of nose B. Multiple 0.4-1 cm, brown-black papules/plaques with waxy stuck on appearance on the head, trunk and extremities C. No evidence of recurrence in scars on the right forehead ASSESSMENT/PLAN: A. Actinic Keratosis - dorsum of nose - I discussed this condition with the patient and explored therapeutic options. I recommended this be treated with Efudex, patient is in agreement to this treatment plan. Instructed to call if areas do not resolve as expected or if problems arise. If lesions fail to resolve, further work-up may be needed. - Rx: Efudex 5% cream (patient has this at home) Apply to the nose (avoid creases) twice daily for 2-3 weeks Apply to the affected areas of sun damage as discussed in clinic either once or twice daily depending on inflammation. OK to stop all together if too much discomfort. Urged patient to call clinic if there is too much pain or infection is suspected. -Apply Vaseline to the treated areas during the day Call if areas do not resolve as expected or problems arise. B. Seborrheic Keratosis (asymptomatic) - trunk and extremities, head Monitor for change or symptoms - Etiology discussed - Patient reassured lesions are benign in nature - Explained that these are hereditary, adult onset and acquired. - Can develop anywhere on the body except for palms or soles - Treatment of an asymptomatic seborrheic keratosis is considered a cosmetic procedure and is not covered by insurance. C. History of Basal Cell Carcinoma - right forehead - Well-healed surgical scar, no signs of recurrence. -Continue to monitor -Call if problems arise -Discussed importance of sun protection, sun avoidance strategies, protective clothing, and sunscreen. RTC - 1 year for full skin exam, sooner if needed. Reminder placed in scheduling system. Instructedto call if problems arise. I am documenting this encounter acting as the scribe for and in the presence of Dr. Elias.: RACHEAL BAKER LPN I, Karen Archer, have performed the documentation for this encounter in the presence of and acting as a scribe for EVAN ELIAS III, MD. I performed the above scribed service and agree with the accuracy of the documentation in this encounter. Evan Elias MD Section of Dermatology [facility] documented in this encounter Plan of Treatment Not on file documented as of this encounter Visit Diagnoses Diagnosis AK (actinic keratosis) Actinic keratosis Seborrheic keratosis Other seborrheic keratosis Hx of skin cancer, basal cell Personal history of other malignant neoplasm of skin Skin exam for malignant neoplasm Screening for malignant neoplasm of the skin documented in this encounter Care Teams Snuff Packing Machine Operator Relationship Specialty Start Date End Date Madeline Klein MD [address] [place] [address] PCP - General 01/24/14 03/20/22 documented as of this encounter
--- OUTSIDE RECORDS SUMMARY | 2024-05-14 15:16 | XMS_ITS | Encounter Summary ---
Author Organization [facility] [place] [address] Care Team Providers Care Ross Carrier Driver Name Role Phone Madeline Klein MD Primary Care Provider [phone] Reason for Visit * Reason Comments Skin Check Encounter Details Date Type Department Care Team (Late st Contact Info) Description 10/17/2020 1:00 PM EDT Office Visit Dermatology at [facility] [address] [place] [address] Evan Nolsaco III, MD [facility] [address] [place] [address] Seborrheic keratosis; Cat angioma; History of basal cell carcinoma; Actinic keratosis; Multiple benign nevi Social History Tobacco Use Types Packs/Day Years Used Date Smoking Tobacco: Never Smokeless Tobacco: Never Sex and Gender Information Value Date Recorded Sex Assigned at Not on file Gender Identity Not on file Sexual Orientation Not on file documented as of this encounter Progress Notes * Nuzhat Mosquera LPN - 10/17/2020 1:00 PM EDT Images from the original note were not included. DEPARTMENT OF DERMATOLOGY [facility] D[facility]atology [facility] Provider: EVAN NOLASCO III, MD Patient's preferred name Theresa Patient's preferred pronouns She/Her/Hers Preferred contact method for results []myDH [x]Letter []Phone: Detailed phone message OK? [x]Yes []No Are there any other people with whom we may discuss your care? [x]Yes: Daughter, Shama Alejo []No PAST MEDICAL HISTORY Date, location, treatment Melanoma []Yes [x]No Dysplastic nevi []Yes [x]No SCC []Yes [x]No BCC [x]Yes []No AKs [x]Yes []No Blistering sunburns or tanning bed use []Yes [x]No Other relevant past medical history (i.e. eczema, psoriasis, birthmarks, immunosuppression) [x]Yes []No Procedure Screening Questions: Allergy to lidocaine or epinephrine:??No Blood thinners: No Pacemaker/defibrillator:??No Heart valves:??No Joint replacements:??No FAMILY HISTORY Melanoma []Yes [x]No NMSC []Yes [x]No Other relevant family history []Yes [x]No History of Present Illness: Theresa Mccauley is a 70 y.o. year old. Patient returns to clinic today for evaluation of full skin cancer screening. Patient reports the following: A dry spot on the central forehead near the hairline that was noticed last fall. Medications: Reviewed in eD-H Allergies: Reviewed in eD-H Skin Examination: Full skin examination: Patient asked to undress to their comfort level. Verbalized that the provider's preference is that patient take everything with understanding that areas under clothing will notbe examined. Examination of the scalp, hair, head, face, ears, neck, chest, axillae, abdomen, back,buttocks, and left and right upper and lower extremities.Genitalia was not examined. Assessment/Plan A. Hx of BCC- Scar well healed on the right forehead - NER B. Seborrheic Keratoses - stuck on, waxy papules on the trunk and extremities - Benign. No treatment needed. C. Cat Angioma(s) - 0.2-0.4cm bright red, well-demarcated papule(s). Trunk - Benign. No treatment needed. D. Actinic keratosis - Scattered ill-defined gritty papules on the central forehead - Reviewed diagnosis with patient and treatment options. - Joint decision to proceed with the following: Rx: 5-fluorouracil (Efudex) 5% cream apply topically to the forehead and temples twice daily for 2-3 weeks. Reviewed pamphlet/photographs, which detail expectations, typical reaction to treatment magdalene to call . She has this medication on hand to try on these sites - she has done this before and understands its use and will call if problems arise or if the sites fail to resolve or recur. Call if areas do not resolve as expected or problems arise. E. Benign Nevi - Scattered light to medium brown macules on the trunk and extremeties with reassuring pigment pattern on dermoscopy. - Reassured of benign appearance on exam today. - Advised patient to watch for any new or changing lesions. - Reviewed warning signs of skin cancer. Other items to document in the assessment/plan if relevant ??? Sun protection/OTC skin products discussed RTC: Return in about 1 year (around 10/17/2021) for FSE . Scribe attestation: Nuzhat Mosquera LPN who has performed the documentation for this encounter inthe presence of and acting as a scribe for EVAN NOLASCO III, MD I performed the above scribed service and agree with the accuracy of the documentation in this encounter. Reviewed and signed by: EVAN NOLASCO III, MD Dermatology [facility] documented in this encounter Plan of Treatment Not on file documented as of this encounter Visit Diagnoses Diagnosis Seborrheic keratosis Other seborrheic keratosis Cat angioma Nevus, non-neoplastic History of basal cell carcinoma Personal history of other malignant neoplasm of skin Actinic keratosis Multiple benign nevi Benign neoplasm of skin, site unspecified documented in this encounter Care Teams Ross Carrier Driver Relationship Specialty Start Date End Date Madeline Klein MD [address] [place] [address] PCP - General 01/24/14 03/20/22 documented as of this encounter
--- OUTSIDE RECORDS SUMMARY | 2024-05-14 15:17 | XMS_ITS | Encounter Summary ---
Author Organization [facility] [place] [address] Care Team Providers Care Retail Merchandising Manager Name Role Phone Candelaria Abraham MD Primary Care Provider [phone] Encounter Details Date Type Department Care Team (Latest Contact Info) Description 04/29/2011 12:46 PM EDT - 04/29/2011 11:59 PM EDT Hospital [place] [id number] CLINIC, Candelaria Carroll MD [address] [place] [address] Discharge Disposition: Home Social History Tobacco Use Types Packs/Day Years Used Date Smoking Tobacco: Never Assessed Sex and Gender Information Value Date Recorded Sex Assigned at Not on file Gender Identity Not on file Sexual Orientation Not on file documented as of this encounter Medications at Time of Discharge Medication Sig Dispensed Refills Start Date End Date atenolol (TENORMIN) 25 mg tablet 12.5MG = 1/2 Tablet(s), PO, Once daily 04/14/2006 documented as of this encounter Plan of Treatment Not on file documented as of this encounter Procedures Procedure Name Priority Date/Time Associated Diagnosis Comments MAMMO SCREENING CAD BILATERAL Routine 04/29/2011 1:44 PM EDT documented in this encounter Results * MAMMO DIGITAL BILATERAL SCREENING WITH CAD (04/29/2011 1:44 PM EDT) Anatomical Region Laterality Modality Breast Bilateral Mammography 04/29/2011 1:44 PM EDT Narrative 05/02/2011 5:33 PM EDT ? BILATERAL MAMMOGRAPHY ?? REASON FOR EXAM: Screening ?? TECHNIQUE: Cranio-caudal (CC) and mediolateral oblique (MLO) views of both breasts obtained with direct digital capture. The exam was evaluated by CAD Version 8.3.17. ?? FINDINGS: This is a negative mammogram (ACR Category 1). There is a stable fibroglandular pattern without significant change as compared to prior studies. There is no mammographic evidence of cancer. ? The breasts are of scattered density. ? CONCLUSION ?? This is a NEGATIVE mammogram (ACR Category 1). Routine screening mammography is recommended with the frequency dependent on the patient's age and breast cancer risk factors. ?? A letter has been sent to this patient by [facility]. Procedure Note Luz Tom MD - 05/02/2011 BILATERAL MAMMOGRAPHY REASON FOR EXAM: Screening TECHNIQUE: Cranio-caudal (CC) and mediolateral oblique (MLO) views of both breasts obtained with direct digital capture. The exam was evaluated byCAD Version 8.3.17. FINDINGS: This is a negative mammogram (ACR Category 1). There is a stable fibroglandular pattern without significant change as compared to priorstudies. There is no mammographic evidence of cancer. The breasts are of scattered density. CONCLUSION This is a NEGATIVE mammogram (ACR Category 1). Routine screeningmammography is recommended with the frequency dependent on the patient's age and breastcancer risk factors. A letter has been sent to this patient by the [facility]. Candelaria Abraham MD IMG MAMMO ORDERABLES documented in this encounter Visit Diagnoses Not on filedocumented in this encounter Care Teams Retail Merchandising Manager Relationship Specialty Start Date End Date Candelaria Abraham MD [address] [place] [address] PCP - General 05/29/10 01/23/14 documented as of this encounter
--- OUTSIDE RECORDS SUMMARY | 2024-05-14 15:17 | XMS_ITS | Encounter Summary ---
Author Organization [facility] Address [facility] [place] [address] Care Team Providers Care Administrative Processor Name Role Phone Candelaria Perea MD Primary Care Provider [phone] Reason for Visit * Reason Comments Skin Lesion Encounter Details Date Type Department Care Team (Late st Contact Info) Description 01/29/2013 9:45 AM EDT Office Visit Dermatology at [facility] [address] [place] [address] Evan Nolasco III, MD [facility] [address] [address] Neoplasm of unspecified nature of bone, soft tissue, and skin (Primary Dx); Skin lesion of face Discharge Disposition: Home Social History Tobacco Use Types Packs/Day Years Used Date Smoking Tobacco: Never Sex and Gender Information Value Date Recorded Sex Assigned at Not on file Gender Identity Not on file Sexual Orientation Not on file documented as of this encounter Progress Notes * aRcheal Baker LPN - 01/29/2013 10:26 AM EDT Images from the original note were not included. DERMATOLOGY CONSULT NOTE Date of service: 01/29/2013 Scar Mccauley : 1950 Provider: Evan Nolasco MD PROBLEM: skin lesion on forehead The patient is seen at the request of CANDELARIA PEREA MD, who instructed the patient to be seen for evaluation of above HPI Scar Mccauley is a 62 y.o. year old female. She has had a papule on her forehead for 5 years. In the past 3 - 4 months it began to bleed or seep clear fluid. PAST MEDICAL HX: no personal history of skin cancer or skin diseases SOCIAL HX: FAMILY HX: neg ADR: Allergies Allergen Reactions ??? Sulfa (Sulfonamide Antibiotics) CIS - Hives ??? Caffeine ??? Penicillins MEDS: Current Outpatient Prescriptions Medication Sig Dispense Refill ??? atenolol (TENORMIN) 25 mg tablet 12.5MG = 1/2 Tablet(s), PO, Once daily ROS General: feeling well There is no problem list on file for this patient. Skin: denies other skin complaints EXAM General: NAD, pleasant, cooperative Skin: Significant skin findings: A. Right forehead - 5 - 6 mm dome shaped papule with translucency ASSESSMENT/PLAN: A. BCC - I discussed this condition with the patient and explored therapeutic options. I recommended a shave biopsy and she agreed. Procedure: Skin biopsy. Location: right forehead Discussed indications for procedure and expectations including risks and benefits. Verbal consent obtained. Skin prep with alcohol. Local anesthesia with 1% xylocaine, 1/100,000 epinephrine, 0.1 mEq/mL bicarbonate. A sample of the lesion was removed by shave technique to the level of the dermis andsubmitted to Pathology. Hemostasis obtained (AlCl and/or electrocautery). There were no complications; the pt. tolerated the procedure well. The wound was dressed. Post-procedure expectations, wound care and activity restrictions were reviewed. Follow-up based on pathology results. I am documenting this encounter acting as the scribe for and in the presence of Dr. Nolasco.: RACHEAL BAKER LPN, I performed the above scribed service and agree with the accuracy of the documentation in this encounter. Evan Nolasco MD Section of Dermatology [facility] documented in this encounter Plan of Treatment Not on file documented as of this encounter Procedures Procedure Name Priority Date/Time Associated Diagnosis Comments SPECIMEN TO PATHOLOGY (NON-OR) Routine 01/29/2013 10:31 AM EDT Neoplasm of unspecified nature of bone, soft tissue, and skin SURGICAL PATHOLOGY REPORT Routine 01/29/2013 10:31 AM EDT documented in this encounter Results * Surgical Pathology Report (01/29/2013 10:31 AM EDT) Surgical Pathology Report ? [facility] ? Provider: ?? CURT III, EVAN Pt. Name: ?? TOYA SCAR Jackson ?A ? Acc #: ?[id number] ? Pt. ? Col Date: ?? 01/29/2013 ? /Sex: ?1950,(62 ? years),Female ? Rec Date: ?? 01/29/2013 ? LOC: ?[facility] ? SURGICAL PATHOLOGY ? ---Pathologic Diagnosis--- ? Skin, right forehead, shave biopsy: ? Basal cell carcinoma, extending to the peripheral and deep specimen ? edges. ? CR-0 ? 02/01/13 ? VMS ? 02/01/13 Verified by: ? Marco Crespo MD ? Dermatopathologist ? (Electronic Signature) ? The attending pathologist whose signature appears on this report has ? reviewed all diagnostic slides and has edited the gross and/or ? microscopic portion of the report in rendering the final pathologic ? diagnosis. ? ---Gross Description--- ? A - Labeled/Fixative: Patient demographics, formalin. ? Quantity/Size: Single, 1.1 x 1.1 x 0.1 cm. ? Tissue Description: Shave of wilks skin. ? Sections/Processing: Inked and trisected. (T1) ??KSB ? ---Clinical Information--- ? Specimen Submitted: ? A - Skin, right forehead, shave biopsy (1) ? Clinical History: ? 5-6 millimeter dome shaped papule with translucency ? Clinical Diagnosis: ? BCC CERNER ELINAIUM 01/29/2013 10:3 1 AM EDT Evan Nolasco III, MD PATHOLOGY/CYTOL OGAd ORDERABLES Performing Organization Address [facility] de Phone Number BRIAN ASHLEY * Specimen to Pathology (NON-OR) (01/29/2013 10:31 AM EDT) AP Specimen 01/29/2013 10:3 1 AM EDT 01/29/2013 10:34 AM EDT Narrative BRIAN ANTOINEIUM - 01/29/2013 10:34 AM EDT Specimen requisition ordered. ??Separate Pathology report to follow Evan Nolasco III, MD PATHOLOGY/CYTOL OGY ORDERABLES Performing Organization Address [facility] de Phone Number BRIAN ASHLEY documented in this encounter Visit Diagnoses Diagnosis Neoplasm of unspecified nature of bone, soft tissue, and skin- Primary Skin lesion of face Unspecified disorder of skin and subcutaneous tissue documented in this encounter Care Teams Administrative Processor Relationship Specialty Start Date End Date Candelaria Perea MD [address] [place] [address] PCP - General 05/29/10 01/23/14 documented as of this encounter
--- OUTSIDE RECORDS SUMMARY | 2024-05-14 15:17 | XMS_ITS | Encounter Summary ---
Author Organization [facility] [place] [address] Care Team Providers Care Coremaker Apprentice Name Role Phone Candelaria Abraham MD Primary Care Provider [phone] Reason for Visit * Reason Comments Basal Cell Carcinoma Encounter Details Date Type Department Care Team (Late st Contact Info) Description 02/16/2013 8:05 AM EDT Office Visit Dermatology at [facility] [address] [place] [address] Dakota Austin MD [facility] DR VIRGIE [place] [address] BCC (basal cell carcinoma) (Primary Dx) Discharge Disposition: Home Social History Tobacco Use Types Packs/Day Years Used Date Smoking Tobacco: Never Sex and Gender Information Value Date Recorded Sex Assigned at Not on file Gender Identity Not on file Sexual Orientation Not on file documented as of this encounter Last Filed Vital Signs Vital Sign Reading Time Taken Comments Blood Pressure 148/66 02/16/2013 8:11 AM EDT Pulse 74 02/16/2013 8:11 AM EDT Temperature - - Respiratory Rate 20 02/16/2013 8:11 AM EDT Oxygen Saturation - - Inhaled Oxygen Concentration - - Weight 101.6 kg (224 lb) 02/16/2013 8:11 AM EDT Height 172.7 cm (5' 8) 02/16/2013 8:11 AM EDT Body Mass Index 34.06 02/16/2013 8:11 AM EDT documented in this encounter Progress Notes * Dakota Austin MD - 02/16/2013 8:08 AM EDT Chief Complaint: BCC History of Present Illness: Referring Physician: Dr. Nolasco Tumor type BCC Location of Skin Cancer: Right forehead Duration of Presence:approx 5 years changes noted around November 2012 - seeping Previous Treatment [x] No [ ] Yes When: Symptoms: [ ] pain [x] bleeding [ ] crusting [x] Other - oozing [ ] none Previous History of Skin Cancer: [x] none [ ] list Family History of Skin Cancer [ ] none [ ] melanoma [ ] basal cell [ ] squamous cell [ ] other mother - unsure of type Review of Systems: Check all that apply regarding other health problems Skin Hematological Eyes/Ears/Nose/Throat [x] normal [x] normal [x] normal [ ] thick scars/keloids [ ] anemia [ ] glaucoma [ ] poor wound healing [ ] bleeding problems [ ] hearing aid [ ] herpes infection/cold sores [ ] enlarged lymph nodes [ ] cosmetic surgery [ ] other [ ] other [ ] other Cardiovascular Respiratory GI/Renal [ ] normal [x] normal [x] normal [ ] angina (chest pain) [ ] emphysema [ ] colitis [ ] heart attack (Date____) [ ] COPD [ ] stomach ulcer [ ] artificial heart valve [ ] asthma [ ] kidney disease [ ] pacemaker/defib [ ] other [ ] other [x] HTN [ ] other Musculoskeletal Endocrine Infections [x] normal [x] normal [x] none [ ] arthritis [ ] thyroid disease [ ] HIV/AIDS [ ] artificial joint (Year ____) [ ] diabetes [ ] hepatitis (type ) [ ] other [ ] other [ ] tuberculosis [ ] other Neurological Psychiatric [x] normal [x] normal [ ] stroke [ ] anxiety [ ] seizures [ ] depression [ ] mental status change [ ] other [ ] other Do you take antibiotics prior to having a dental or any other procedure [x] No [ ] Yes Medical Problems (not listed above): Patient Active Problem List Diagnosis Code ??? Skin lesion of face 709.9 ??? Hypertension 401.9 Surgical history (not listed above): 6 surgeries on feet for various things Physical Limitations: None Do You Take [ ] aspirin [ ] Plavix [ ] Coumadin [ ] Other blood thinners/anti- platelet medications - NONE List Other Medications (prescription and over the counter including vitamins): lisinopril-hydrochlorothiazide (PRINZIDE;ZESTORETIC) 10-12.5 mg per tablet, Active; ascorbic acid (VITAMIN C) 500 mg tablet, Active; atenolol (TENORMIN) 25 mg tablet, Active Medication Allergies: [ ] none [x] list Allergies Allergen Reactions ??? Sulfa (Sulfonamide Antibiotics) CIS - Hives ??? Caffeine ??? 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 [x] No [ ] Yes Are you nursing? [x] No [ ] Yes Physical Exam Blood pressure 148/66, pulse 74, resp. rate 20, height 172.7 cm (5' 8), weight 101.606 kg (224 lb). General: Pleasant, well-appearing, in no acute distress. Skin:Limited examination of face reveals 7 mm translucent papule located on the right forehead. Assessment and Plan 1. Basal Cell Carcinoma - right forehead Reviewed treament options including wide local excision, Mohs micrographic surgery, electrodesiccation and curettage, and radiation therapy. Reviewed reconstruction options including second intention healing, linear repair, local flap, fullthickness graft, and repair by Plastic Surgery or any other physician of the patient's choosing. The patient has elected to proceed with Mohs surgery. The patient has elected to have the post-Mohs defect repaired by us, and understands and acknowledges the risk of scarring. documented in this encounter Miscellaneous Notes * Miscellaneous - Provider, Scanning - 03/12/2013 11:43 AM EDT documented in this encounter Plan of Treatment Not on file documented as of this encounter Visit Diagnoses Diagnosis BCC (basal cell carcinoma)- Primary Basal cell carcinoma of skin, site unspecified documented in this encounter Care Teams Coremaker Apprentice Relationship Specialty Start Date End Date Candelaria Abraham MD [address] [place] [address] PCP - General 05/29/10 01/23/14 documented as of this encounter
--- OUTSIDE RECORDS SUMMARY | 2024-05-14 15:17 | XMS_ITS | Encounter Summary ---
Author Organization [facility] Address [facility] [place] [address] Care Team Providers Care Shipping Inspector Name Role Phone Candelaria Abraham MD Primary Care Provider [phone] Encounter Details Date Type Department Care Team (Late st Contact Info) Description 02/07/2013 Telephone Dermatology at [facility] [address] [place] [address] Evan Nolasco III, MD [facility] [place] [address] Social History Tobacco Use Types Packs/Day Years Used Date Smoking Tobacco: Never Sex and Gender Information Value Date Recorded Sex Assigned at Not on file Gender Identity Not on file Sexual Orientation Not on file documented as of this encounter Miscellaneous Notes * Telephone Encounter - Evan Nolasco III, MD - 02/07/2013 4:22 PM EDT I called the patient to let her know that the biopsy was a BCC on her forehead. I will refer her for MOH's. ---Pathologic Diagnosis--- Skin, right forehead, shave biopsy: Basal cell carcinoma, extending to the peripheral and deep specimen edges. documented in this encounter Plan of Treatment Not on file documented as of this encounter Visit Diagnoses Not on filedocumented in this encounter Care Teams Shipping Inspector Relationship Specialty Start Date End Date Candelaria Abraham MD [address] [place] [address] PCP - General 05/29/10 01/23/14 documented as of this encounter
--- OUTSIDE RECORDS SUMMARY | 2024-05-14 15:17 | XMS_ITS | Encounter Summary ---
Author Organization [facility], [facility] Address [facility] [place] [address] Care Team Providers Care Tumbler Dyeing Machine Operator Name Role Phone Candelaria Abraham MD Primary Care Provider [phone] Encounter Details Date Type Department Care Team (Late st Contact Info) Description 02/09/2013 Telephone Dermatology at [facility] [address] [place] [address] Dakota Austin MD [facility] [place] [address] Social History Tobacco Use Types Packs/Day Years Used Date Smoking Tobacco: Never Sex and Gender Information Value Date Recorded Sex Assigned at Not on file Gender Identity Not on file Sexual Orientation Not on file documented as of this encounter Plan of Treatment Not on file documented as of this encounter Visit Diagnoses Not on filedocumented in this encounter Care Teams Tumbler Dyeing Machine Operator Relationship Specialty Start Date End Date Candelaria Abraham MD [address] [place] [address] PCP - General 05/29/10 01/23/14 documented as of this encounter
--- OUTSIDE RECORDS SUMMARY | 2024-05-14 15:17 | XMS_ITS | Encounter Summary ---
Author Organization [facility] [place] [address] Care Team Providers Care Forest Economics Professor Name Role Phone Candelaria Abraham MD Primary Care Provider [phone] Encounter Details Date Type Department Care Team (Late st Contact Info) Description 07/09/2006 [place] [address] Luz Tom MD [facility] [place] [address] Social History Tobacco Use Types Packs/Day Years Used Date Smoking Tobacco: Never Assessed Sex and Gender Information Value Date Recorded Sex Assigned at Not on file Gender Identity Not on file Sexual Orientation Not on file documented as of this encounter Plan of Treatment Not on file documented as of this encounter Procedures Procedure Name Priority Date/Time Associated Diagnosis Comments FILM LIBRARY STORAGE ONLY MAMMO Routine 07/09/2006 8:35 AM EST documented in this encounter Results * Film Library- Storage only Mammo (07/09/2006 8:35 AM EST) Anatomical Region Laterality Modality Other 07/09/2006 8:35 AM EST Narrative 08/24/2013 6:45 PM EST This is a non-reportable exam. Procedure Note eSbas Zafar - 08/24/2013 This is a non-reportable exam. Luz Cr MD IMG FILM LIBRARY ORDERABLES documented in this encounter Visit Diagnoses Not on filedocumented in this encounter Care Teams Forest Economics Professor Relationship Specialty Start Date End Date Candelaria Abraham MD [address] [place] [address] PCP - General 05/29/10 01/23/14 documented as of this encounter
--- OUTSIDE RECORDS SUMMARY | 2024-05-14 15:17 | XMS_ITS | Encounter Summary ---
Author Organization [facility] Address [facility] [place] [address] Care Team Providers Care Wood Room Supervisor Name Role Phone Candelaria Abraham MD Primary Care Provider [phone] Encounter Details Date Type Department Care Team (Late st Contact Info) Description 02/09/2013 Telephone Dermatology at [facility] [address] [place] [address] Dakota Austin MD [facility] [address] [place] [address] Social History Tobacco Use Types Packs/Day Years Used Date Smoking Tobacco: Never Sex and Gender Information Value Date Recorded Sex Assigned at Not on file Gender Identity Not on file Sexual Orientation Not on file documented as of this encounter Miscellaneous Notes * Telephone Encounter - Rosalinda Faulkner RN - 02/09/2013 10:09 AM EDT Chief Complaint: BCC History of [...] (not listed above): Patient Active Problem List Diagnoses Code ??? Skin lesion of face 709.9 ??? Hypertension 401.9 Surgical history (not listed above): 6 surgeries on feet for various things Physical Limitations: None Do You Take [ ] aspirin [ ] Plavix [ ] Coumadin [ ] Other blood thinners/anti- platelet medications - NONE List Other Medications (prescription and over the counter including vitamins): lisinopril-hydrochlorothiazide (PRINZIDE;ZESTORETIC) 10-12.5 mg per tablet; ascorbic acid (VITAMIN C) 500 mg tablet; atenolol (TENORMIN) 25 mg tablet Medication Allergies: [ ] none [x] list Allergies Allergen Reactions ??? Sulfa (Sulfonamide Antibiotics) CIS - Hives ??? Caffeine ??? 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 [x] No [ ] Yes Are you nursing? [x] No [ ] Yes Survey reviewed with patient via the phone. Scheduled for consult 02/16/13. Rosalinda Faulkner RN documented in this encounter Plan of Treatment Not on file documented as of this encounter Visit Diagnoses Not on filedocumented in this encounter Care Teams Wood Room Supervisor Relationship Specialty Start Date End Date Candelaria Abraham MD [address] [place] [address] PCP - General 05/29/10 01/23/14 documented as of this encounter
--- OUTSIDE RECORDS SUMMARY | 2024-05-14 15:17 | XMS_ITS | Encounter Summary ---
Author Organization [facility] [place] [address] Care Team Providers Care Chief Jailer Name Role Phone Candelaria Abraham MD Primary Care Provider [phone] Encounter Details Date Type Department Care Team (Latest Contact Info) Description 01/29/2013 10:56 AM EDT - 01/29/2013 11:59 PM EDT Hospital [place] [id number] CLINIC, Candelaria Carroll MD [address] [place] [address] Discharge Disposition: Home Social History Tobacco Use [...] Diagnosis Comments MAMMO SCREENING CAD BILATERAL Routine 01/29/2013 11:20 AM EDT documented in this encounter Results * Mammo digital bilateral Screening with CAD (01/29/2013 11:20 AM EDT) Anatomical Region Laterality Modality Breast Bilateral Mammography 01/29/2013 11:2 0 AM EDT Narrative 01/30/2013 12:24 PM EDT Reason for Exam: Screening ?? Technique: Craniocaudal (CC) and Medio-lateral Oblique (MLO) views of both breasts obtained with direct digital capture. The exam was evaluated by CAD version 8.3.17. ?? Findings: ?? This is a negative mammogram (ACR Category 1). ??There is a stable fibroglandular pattern without significant change from prior studies. There is no mammographic evidence of cancer. ??The breasts are predominately fatty. ?? CONCLUSION: This is a NEGATIVE mammogram (ACR Category 1). ?? Routine screening mammography is recommended with the frequency dependent upon the patient's age and breast cancer risk factors. A letter has been sent to this patient by the breast imaging center. Procedure Note Alison Hughes MD - 01/30/2013 Reason for Exam: Screening Technique: Craniocaudal (CC) and Medio-lateral Oblique (MLO) views of both breasts obtained with direct digital capture. The exam was evaluated by CAD version 8.3.17. Findings: This is a negative mammogram (ACR Category 1). There is a stable fibroglandular pattern without significant change from prior studies. There is no mammographic evidence of cancer. The breasts arepredominately fatty. CONCLUSION: This is a NEGATIVE mammogram (ACR Category 1). Routine screening mammography is recommended with the frequency dependentupon the patient's age and breast cancer risk factors. A letter has been sent to this patient by the breast imaging center. Candelaria Abraham MD IMG MAMMO ORDERABLES documented in this encounter Visit Diagnoses Not on filedocumented in this encounter Care Teams Chief Jailer Relationship Specialty Start Date End Date Candelaria Abraham MD [address] [place] [address] PCP - General 05/29/10 01/23/14 documented as of this encounter
--- OUTSIDE RECORDS SUMMARY | 2024-05-14 15:17 | XMS_ITS | Encounter Summary ---
Author Organization [facility] [place] [address] Care Team Providers Care Roller Mechanic Name Role Phone Candelaria Abraham MD Primary Care Provider [phone] Reason for Visit * Reason Comments Basal Cell Carcinoma Encounter Details Date Type Department Care Team (Late st Contact Info) Description 03/03/2013 8:00 AM EDT Office Visit Dermatology at [facility] [address] [place] [address] Dakota Austin MD [facility] DR VIRGIE [place] [address] BCC (basal cell carcinoma), face (Primary Dx); BCC (basal cell carcinoma of skin) Discharge Disposition: Home Social History Tobacco Use [...] Mass Index 32.96 03/03/2013 7:47 AM EDT documented in this encounter Progress Notes * Dakota Austin MD - 03/03/2013 11:25 AM EDT Operative Report Patient name: Theresa Mccauley : 1950 Date: 03/03/2013 Staff Surgeon: Dakota Austin MD, PhD Aqueduct And Reservoir Keeper I: Rosalinda Best Ashley Coccomo, [place], Mari Paz Castanedo Tardan, MD Concrete Stone Finishing Supervisor: Ann-Marie Roberson Pre-operative diagnosis: Basal cell carcinoma Post-operative diagnosis: Basal cell carcinoma Location: Right forehead Procedure: Mohs micrographic surgery Indication for Mohs micrographic surgery: Critical anatomic location Stages: 1 Final defect size: 3.2 x 2.0cm Stage I The nature and purpose of the procedure, associated risks, possible consequences and complications,and alternative forms of treatment were explained in detail. Informed consent and permission to take photographs were obtained. The site was confirmed with the patient/authorized chain sales representative/referring physician and a pre-operative time-out was conducted with no unresolved discrepancies noted. Loc al anesthesia was obtained with a buffered solution of 1% lidocaine with 1:100,000 epinephrine. Thesurgical site was prepped and draped in the usual sterile manner. Clinically apparent tumor was removed by excision with clinical margins and sent for step sectioning. With all visible gross tumor completely excised, the borders of the tumor were excised as a complete layer 2-3mm in thickness. Hemostasis was achieved by electrocoagulation. The excised tissue was oriented and divided into 2 sections, chromacoded, and submitted for frozen sections. The patient tolerated the procedure well and without complications. On microscopic evaluation of the frozen sections, no residual tumor was identified on the deep or outer border of the sections. The final size of the defect after complete tumor removal was 3.2 x 2.0cm, extending to fat. I was present for the nelson portions of the procedure. Dakota Austin MD, PhD Repair Operative Report Patient name: Theresa Mccauley : 1950 Date: 03/03/2013 Staff Surgeon: Dakota Austin MD, PhD Aqueduct And Reservoir Keeper I: Rosalinda Best Ashley Coccomo, Mel Melvin, Mamta Saldaña MD Clinical Diagnosis: 3.2 x 2.0cm surgical defect secondary to Mohs microscopically controlled excision of basal cell carcinoma Location:Right forehead Procedure: A to T flap repair Due to the size and location of the defect resulting from the complete removal of the tumor, the postoperative risk of hemorrhage, infection, and the possibility of serious deformity from scarring, and in order to restore proper function and prevent loss of function, the defect was closed. The nature and purpose of the procedure, associated risks, possible consequences, complications andalternative methods of treatment were explained to the patient in detail. An informed consent was obtained. Local anesthesia was obtained with a buffered solution of 1-% lidocaine with 1:100,000 epinephrine. The surgical site was prepped and draped in the usual sterile manner. The edges of the defect were deepithelialized with a scalpel blade. A A to T flap was designed adjacent to the defect. The flap borders were incised down to the dermal subcutaneous junction and the flap was undermined. Hemostasis was achieved with electrocoagulation. The deep tissues of both the flap and secondary defect were closed with 4 -0 & 5-0 Monocryl sutures. The epidermal edges were opposed with 5-0 Prolene sutures. Redundant tissue was removed as needed and closed in a similar manner. The resulting closure measured 4.0 x 3.6 cm. There was minimal to no distortion to surrounding anatomic structures. The surgical site was cleaned and covered with white petrolatum and gauze pressure dressing. The patient tolerated the procedure well and without complications and was given both verbal and written instructions on postoperative wound care. Follow up for suture removal was scheduled for one week. The patient was discharged in good condition. I was present for the nelson portions of the procedure. Dakota Austin MD, PhD documented in this encounter Plan of Treatment Not on file documented as of this encounter Visit Diagnoses Diagnosis BCC (basal cell carcinoma), face- Primary Basal cell carcinoma of skin of other and unspecified parts of face BCC (basal cell carcinoma of skin) Basal cell carcinoma of skin, site unspecified documented in this encounter Care Teams Roller Mechanic Relationship Specialty Start Date End Date Candelaria Abraham MD [address] [place] [address] PCP - General 05/29/10 01/23/14 documented as of this encounter
== END 2024-05-14 15:11 | disposition home or self-care (01) ==
LOC: LBO 15:14
PROVIDERS: PCP Family Medicine; Visit Provider Family Medicine
DX: I10 Essential (primary) hypertension (principal); Z13.6 Encounter for screening for cardiovascular disorders
CPT/HCPCS: 36415; 80048; 80061

== ENCOUNTER 2024-05-20 01:12 | Outpatient (CLI) | payer MEDICARE, BC, SELFPAY ==
--- NOTE | 2024-05-20 09:47 | DI.DEXA_ITS ---
Exam(s) XR DEXA BONE DENSITY W/WO SELINA EXAM: XR DEXA BONE DENSITY W/WO SELINA CLINICAL HISTORY: screening,menopausal disorder,n95.9 TECHNIQUE: COMPARISON: No exams were available for comparison FINDINGS: Lateral Spine Image: Unremarkable. No compression deformities identified. Left hip: Total T-Score: 0.0 Total Z-Score: 1.7 T- and Z-scores: Within normal limits. Lumbar Spine: Total T-Score: 3.3 Total Z-Score: 5.7 T- and Z-scores: Within normal limits. IMPRESSION: No evidence of osteoporosis.
--- NOTE | 2024-05-20 12:30 | DI.US_ITS ---
APPROVED REPORT EXAM: Comprehensive 2D, Doppler, and color-flow Echocardiogram Patient Location: Out-Patient Process Treater: Ana Cm RDCS (AE) Indications: F/U mitral regurgitation, Heart murmur Other Information Study Quality: Adequate Conclusion Normal left ventricular wall thickness and chamber size. Ejection fraction is 55 to 60%. Wall motio n is normal Normal right ventricular size and function Both atria are normal in size Aortic valve is mildly sclerotic and trileaflet. There is no aortic regurgitation Mitral annular calcification. Moderate mitral regurgitation Ascending aorta measures 3.52 cm Wall motion Left Ventricle The left ventricle is normal size. The left ventricular systolic function is normal. The left ventric ular ejection fraction is within the normal range. There is normal left ventricular wall thickness. There is normal LV segmental wall motion. There is no ventricular septal defect visualized. LVEF is 5 5%. Right Ventricle The right ventricle is normal size. The right ventricular systolic function is normal. Atria The left atrium size is normal. The right atrium size is normal. The interatrial septum is intact wit h no evidence for an atrial septal defect. Aortic Valve The Aortic valve is mildly sclerotic. Aortic valve is trileaflet. No aortic regurgitation is present. Mitral Valve Moderate mitral annular calcification. No evidence of mitral valve stenosis. Moderate mitral regurgi tation. Tricuspid Valve The tricuspid valve is normal in structure. There is no tricuspid valve stenosis. Trace tricuspid reg urgitation. Unable to assess PA pressure. Pulmonic Valve The pulmonary valve is normal in structure. There is no pulmonic valvular stenosis. Trace pulmonic re gurgitation. Great Vessels The aortic root is normal in size. The ascending aorta is mildly dilated. Aortic arch is not well vis ualized. IVC is normal in size and collapses >50% with inspiration. Pericardium There is no pericardial effusion. 2D Dimensions IVSD d PLAX 1.00 cm F: 0.6-1.0 Ao Root d 3.06 cm F: 2.7 - 3.3 LVPW d PLAX 1.00 cm F: 0.6 - 1.0 Ao Asc Diam d 3.52 cm F: 2.3 - 3.1 LVID d PLAX 4.31 cm F: 3.8 - 5.2 LVDs 3.10 cm F: 2.2 - 3.5 LV EF Teichholz 54.7 % FS 28.11 % LV EDV (Teich) 83.5 mL LV ESV (Teich) 37.9 mL M-Mode TAPSE 2.44 cm (M/F) >1.7 Auto EF LV EDV A4C 129.0 mL LV EDV A2C 163.3 mL LV EDV BP 145.5 mL LV ESV A4C 57.4 mL LV ESV A2C 72.0 mL LV ESV BP 65.7 mL LVEF(%) A4C 55.5 % LVEF(%) A2C 55.9 % LVEF(%) BP 54.8 % LV SV A4C 71.6 ml LV SV A2C 91.3 ml LV SV BP 79.8 ml LV CO A4C 4.7 L/min LV CO A2C 6.3 L/min LV CO BP 5.5 L/min HR A4C 65.34 BPM HR A2C 68.81 BPM LV EDV Index (BP) LA Volume LA Length A4C 5.5 cm LA Length A2C 5.3 cm LA Area A4C s 23.01 cm2 LA Area A2C s 19.60 cm2 LA Vol A4C A-L 81.10 mL LA Vol A2C A-L 61.25 mL LA Vol Biplane A-L 71.9 mL LA Vol/BSA A4C A-L LA Vol/BSA A2C A-L LA Vol/BSA BP A-L 33.4 mL/m2 LA Vol A4C MOD 75.6 mL LA Vol A2C MOD 55.7 mL LA Vol BP MOD 66.0 mL RA Volume RA Area A4C 11.5 cm2 RA ESV A4C (A-L) 27.0mL RA Vol/BSA A4C A-L RA Length A4C 4.2 cm RA ESV A4C (MOD) 26.0mL LV Diastology MV E' medial 0.077 (>0.07 m/s) MV E Vmax 1.26 (0.4-1.3 m/s) MV E/E' MED 16.38 (<14) MV A Vmax 1.60 (0.4-1.3 m/s) MV E' lateral 0.062 (>0.1 m/s) E/A Ratio 0.8 MV E/E' LAT 20.42 (<14) MV E' Average 0.069 m/s MV E/E'(average) 18.17 Aortic Valve LVOT Diam s 1.90 cm Mitral Valve MV DT 427 (160-240 msec) MV Vmax TIPS 1.65 m/s MV Mean Grad 4.3 (<2mmHg) MV VTI 0.497 m Pulmonary Valve PV Vmax 1.03 (0.5-1.5 m/s) RVOT Vmax 0.87 m/s PV Peak Grad 4.2 mmHg RVOT Peak Gr. 3.0 mmHg PV Mean Miah 0.69 m/s RVOT VTI 0.162 m PV Mean Grad 2.2 mmHg RVOT Mean Gr. 1.6 mmHg Tricuspid Valve RA Pressure 3.00 mmHg TV S' 0.13 m/s
== END 2024-05-20 01:32 ==
LOC: DI 01:12
PROVIDERS: PCP Family Medicine; Visit Provider Family Medicine
DX: I35.8 Other nonrheumatic aortic valve disorders (principal); Z13.820 Encounter for screening for osteoporosis; N95.9 Unspecified menopausal and perimenopausal disorder
CPT/HCPCS: 77080; 93306

== ENCOUNTER → 2024-07-22 09:04 | Outpatient (BNVA) | payer MEDICARE, BC, SELFPAY | PROVIDERS: PCP Family Medicine; Referring Provider Family Medicine; Visit Provider Physical Therapy Assistant | DX: Z12.11 Encounter for screening for malignant neoplasm of colon (principal); Z86.0100 Personal history of colon polyps, unspecified; Z80.0 Family history of malignant neoplasm of digestive organs; I10 Essential (primary) hypertension; I34.0 Nonrheumatic mitral (valve) insufficiency ==

== ENCOUNTER 2024-08-06 09:03 | Day surgery (SDC) | payer MEDICARE, BC, SELFPAY ==
--- NOTE | 2024-08-05 16:52 | W.PM.DSUDISC ---
Date of service: 08/06/24 Discharge Plan Disposition Patient Disposition: Home Condition: Good Discharge Details Reason For Visit: screening colonoscopy Attending Provider: Mahamed Ramos Primary Care Provider: Carla Roberts Home Meds and New Rx's Prescriptions: Continued cholecalciferol (vitamin D3) 1,000 unit capsule 1,000 unit PO DAILY naproxen sodium [Aleve] 220 mg capsule 220 mg PO PRN PRN Centrum Silver Ultra Women's 1 EACH tablet 1 ea PO DAILY atorvastatin 40 mg tablet 40 mg PO QHS Qty: 90 3RF losartan 50 mg tablet 50 mg PO DAILY Qty: 90 4RF hydrochlorothiazide 25 mg tablet 25 mg PO DAILY Qty: 90 4RF Discontinued bisacodyl [Dulcolax (bisacodyl)] 5 mg tablet,delayed release (DR/EC) 5 mg PO ONCE Qty: 4 0RF Rx Instructions: Take per colonoscopy instructions provided by ordering providers office polyethylene glycol 3350 17 gram/dose powder 17 g PO ONCE Qty: 238 0RF Rx Instructions: Take per colonoscopy instructions provided by ordering providers office Discharge Instructions Instructions: Colon polyps, Diverticulosis Additional Instructions: I have, I enjoyed meeting you today, I hope you are comfortable through the colonoscopy and they feel great this afternoon. Everything went very smoothly. Your prep was excellent and I could see everything fine. I did find and remove a single polyp today. Is quite small, and I will send it off to the pathologist for their review. Polyps, different varieties, we use that information to help determine the timing of your future colonoscopies. Incidentally, he also have a little bit of diverticulosis. Diverticula are little weak spots in the muscular layer of the colon wall. This causes the inside lining to pooch or pocket outwards a bit. These can get infected or inflamed during episodes that we refer to as diverticulitis, however, most patients that I do colonoscopies and have them, and they never cause any problems. I will attach a little bit of information here about typical management of diverticular disease as well as colorectal polyps. If you have any questions, please do not hesitate to call, otherwise my office will be in touch once we have the report of the polyp analysis. 1. If tolerated, consume a soft, low fiber diet for 1-2 days. 2. Do not drive, drink alcohol, operate machinery, make critical decisions, or do activities that require coordination or balance for 24 hours. 3. Because air was put into your colon during the procedure, expelling air from your rectum (passing gas or farting) is normal. 4. You may not have a bowel movement for 1-3 days because of the colonoscopy prep. This is normal. 5. Go directly to the emergency room if you notice any of the following: Develop chills (warm to touch), or if you have a thermometer and your temperature is above 101 Difficulty breathing or difficultly swallowing Persistent vomiting Severe abdominal pain, other than gas cramps Severe chest pain Black, tarry stools Any bleeding ? exceeding one tablespoon 6. Call your physician if the site where your intravenous was started becomes red, swollen, painful, and warm to touch. 7. Your physician has reviewed your pre-procedure medications. Please continue to take those medications as previously ordered. You will be given specific information/education regarding any changes to your medications before leaving. Activity:: Activity as Tolerated Diet:: As Tolerated Discharge Orders Discharge Orders: Discharge Order (Routine); Ordered 08/05/24 Ordered By: Mahamed Ramos DS: Diagnosis Discharge Diagnosis (1) Encounter for screening colonoscopy: Status: Acute Asessment and Plan: Follow-up on polypectomy results
--- NOTE | 2024-08-05 16:53 | W.COLOREPORT ---
Date of service: 08/06/24 Time of Service: 11:20 Colonoscopy Report Date of procedure: 08/06/24 Pre-op diagnosis general: screening colonsocopy Post-op diagnosis procedure note: other (Diverticulosis, colon polyp) Procedure: colonoscopy with polypectomy Surgeon: Mahamed Ramos Anesthesia Type: General:No Airway Estimated blood loss (mL): 5 Pathology: other (0.25 cm flat polyp at 50 cm) Complications: None Disposition: same day Indications: Alida is a 74 year old woman with a history of adenomatous polyps who needs her next screening colonoscopy Prep: Miralax/Dulcolax Procedure Start Time: 10:49 Procedure End Time: 11:11 Retraction Time: 14 Findings: Occasional sigmoid diverticula, 0.25 cm flat polyp at 50 cm Procedure Description: After the induction of anesthesia, and with the patient in left lateral decubitus position, I began by performing an external anorectal exam.? Perineum and skin were normal, as was the anal verge.? There was no evidence of external hemorrhoids.? Next, I performed a digital rectal exam.? I did appreciate any abnormal findings.? Next, I advanced a colonoscope into the rectal vault.? I performed retroflexion.? This appeared normal.? Using insufflation, I then advanced the colonoscope beyond the rectal folds and into the sigmoid colon before advancing towards the cecum.? The quality of the prep was adequate.? The scope was noted to be in the cecum by identification of the ileocecal valve and appendiceal orifice.? I then began withdrawing the colonoscope using repeated irrigation as necessary for full evaluation of the colonic mucosa. Around 50 cm from the anal verge I identified a 0.25 cm polyp. ?It appeared flat in character. ?I was able to remove this with a cold forcep polypectomy. ?I examined the site, and there was minimal bleeding. ?Once this was completed, I continued to withdraw the scope and examine the remainder of the colonic mucosa.? There were some occasional diverticula in the sigmoid segment. Once the scope was withdrawn to the level of the rectum, great care was taken to examine portions of the rectal folds.? Finally, the scope was withdrawn and the patient was brought to the same-day surgery recovery unit as the anesthetic wore off. ?The findings and instructions were shared with the patient prior to discharge. [place] Bowel Prep [place] Bowel Prep Right Colon: 2 Left Colon: 3 Transverse Colon: 3 Total Score: 8
[2024-08-06 09:29] VITALS: BP 159/80; PULSE 97; RESP 16; TEMP 36.6; O2SAT 95
[2024-08-06] MEDS: Lactated Ringers 1,000 ML 80 ML IV (09:40)
--- NOTE | 2024-08-06 10:03 | W.ANESPRE ---
General Info Date of Service Date Performed: 08/06/24 Height: 5 ft 6 in Weight: 106.1 kg Body Mass Index (BMI): 37.7 Surgical Procedure: Operation Date: 08/06/24 10:35 Proposed Procedure Side Surgeon brandon Ramos MD Meds Allergies and Home Medications Allergies Allergy/AdvReac Type Severity Reaction Status Date / Time chondroitin sulfate A Allergy Severe Anaphylaxsi Verified 08/06/24 09:24 s glucosamine Allergy Severe Anaphylaxsi Verified 08/06/24 09:24 s Penicillins Allergy Severe Anaphylaxsi Verified 08/06/24 09:24 s Sulfa (Sulfonamide Allergy Severe Anaphylaxsi Verified 08/06/24 09:24 Antibiotics) s caffeine AdvReac Intermediate heart Verified 08/06/24 09:24 racing, excitability Home Medication ?Medication ?Instructions ?Recorded qhmjthml-vtegcmb-sirk-lutein 1 ea PO DAILY 01/26/14 tablet (Centrum Silver Ultra Women's tablet) cholecalciferol (vitamin D3) 25 1,000 unit PO DAILY 03/25/18 mcg (1,000 unit) capsule naproxen sodium 220 mg capsule 220 mg PO PRN PRN 05/20/19 (Aleve) atorvastatin 40 mg tablet 40 mg PO QHS #90 tabs 04/19/24 hydrochlorothiazide 25 mg tablet 25 mg PO DAILY #90 tabs 07/05/24 losartan 50 mg tablet 50 mg PO DAILY #90 tabs 07/05/24 Current Visit Medications: Current Medications Generic Name Dose Route Start Last Admin Trade Name Freq PRN Reason Stop Dose Admin Ringer's Solution 1,000 mls @ 80 mls/hr 08/06/24 06:00 IV 08/06/24 23:59 INFUSION JOLIE IV Miscellaneous Supplies 1 each 08/06/24 06:00 Iv Access IV 08/06/24 23:59 DIRECTED JOLIE Ondansetron HCl 4 mg 08/05/24 16:57 Ondansetron 4 Mg/2 Ml Vial IVP 09/04/24 16:56 Q4H PRN PRN Nausea / Vomiting Sodium Chloride 0 ml 08/06/24 06:00 Normal Saline Flush 10 Ml Syr IV 08/06/24 23:59 PRN PRN Sodium Chloride 0 ml 08/06/24 06:00 Normal Saline 10 Ml Vial IJ 08/06/24 23:59 DIRECTED PRN Sterile Water 0 ml 08/06/24 06:00 Water,Injection,Sterile 10 Ml Vial IJ 08/06/24 23:59 DIRECTED PRN PFSH Active Problems Active Problems: Problem Status Onset Code Encounter for screening colonoscopy Acute Z12.11 Gastroesophageal reflux disease Acute K21.9 Hypertension Chronic I10 Tubular adenoma Acute D36.9 Arthritis of knee, right Acute M17.11 Moderate mitral regurgitation Acute ~06/2022 I34.0 Medical History Medical History Acute suppurative otitis media of left ear with spontaneous rupture of ear drum Hx of colonic polyps Retinal hemorrhage from ibuprofen; okay to use aleve. Family hx-breast malignancy Surgical History Surgical History S/P colonoscopy (~06/07/19) 05/25 - tubular adenoma x3 Status post bunionectomy Open Carpal Tunnel release 07/14/15; DR. HOYT; RIGHT Tobacco Smoking/Tobacco Use Status: Never Passive smoking exposure: Yes Second hand exposure: Yes Alcohol Alcohol Intake: current Alcohol intake frequency: holidays/special occasions only Alcohol type: hard liquor Substance Use Substance use: Never Substance use type: does not use Vital Signs and Lab Results Vital Signs Most Recent Vital Signs in EMR: Most Recent Vital Signs Temp Pulse Resp BP Pulse Ox 36.6 C 97 H 16 159/80 H 95 08/06/24 09:29 08/06/24 09:29 08/06/24 09:29 08/06/24 09:29 08/06/24 09:29 Lab Results Blood Type / Crossmatch: No Data to Display Complete Blood Count: No Data to Display Complete Metabolic Panel: No Data to Display Liver Function Panel: No Data to Display Coagulation Panel: No Data to Display Cardiac Panel: No Data to Display Arterial Blood Gas: No Data to Display Venous Blood Gas: No Data to Display Pancreas Panel: No Data to Display Thyroid Panel: No Data to Display Infectious Disease: No Data to Display Blood Cultures: No Data to Display Toxicology Panel: No Data to Display Imaging and Studies Imaging and Studies Study information below may be from another EMR and interpreted by another provider. Please see original notes in EMR for more complete details. Echocardiogram Summary: Admission Date: 05/20/24 : 1950 Age: 73 APPROVED REPORT EXAM: Comprehensive 2D, Doppler, and color-flow Echocardiogram Patient Location: Out-Patient [employer] Administrator: Ana Cm RDCS (AE) Indications: F/U mitral regurgitation, Heart murmur Other Information Study Quality: Adequate Conclusion Normal left ventricular wall thickness and chamber size. Ejection fraction is 55 to 60%. Wall motion is normal Normal right ventricular size and function Both atria are normal in size Aortic valve is mildly sclerotic and trileaflet. There is no aortic regurgitation Mitral annular calcification. Moderate mitral regurgitation Ascending aorta measures 3.52 cm Anesthesia Assessment and Plan Anesthesia History Personal History: Delayed Emergence Family History: No Family History of Anesthesia Complications Exercise Tolerance Exercise Tolerance: Metabolic Equivalents>4 Pertinent Negatives Pertinent Negatives: No Symptoms of GERD Cardiac & Pulmonary Exam Cardiac Exam: Normal S1/S2 Heart Sounds Pulmonary Exam: Clear Bilateral Breath Sounds Implantable Cardiac Device Does patient have a Pacemaker or an ICD?: No Airway Exam Known Difficult Airway: No Mallampati Class: 2 Mouth Opening: Normal (> 3cm) Thyromental Distance: Greater than 3 cm Neck Range of Motion: Full ROM Neck Circumference: Normal Teeth Condition: Normal Dentition ASA Classification ASA Score: ASA 3 Emergency Case?: No NPO Status NPO Status: NPO Clears >2 hours, Solids >8 hours Anesthesia Plan Resuscitation Status: Full Code Anesthesia Technique: General Anesthesia Airway Planned: Natural Airway Monitors Used: Standard Monitors
[2024-08-06 10:05] VITALS: BMI 37.7
--- NOTE | 2024-08-06 11:09 | BOWEL_PTH ---
PATIENT: Theresa Mccauley LOC: [facility] U#:[id number] AGE/SX: 74/F ROOM: RE08/06/[address]: Mahamed Ramos MD : 1950 BED: DIS: 08/06/2024 SPEC #: [id number] RECD: 08/06/24 11:31 STATUS: JAY REQ #: [id number] KIMBERLY: 08/06/24 11:[address]: Mahamed Ramos DEPT: Surgical Specimen RECD BY: Estrella Downey ENTERED: 08/06/24 11:32 SP TYPE: Bowel OTHR DR: Carla Roberts Tissues: 1 - BIOPSY BOWEL Procedures: GROSS AND MICRO LEVEL 4 Comments: [id number]
[2024-08-06 11:17] VITALS: BP 143/70; PULSE 91; RESP 20; TEMP 36.1; O2SAT 96
[2024-08-06 11:39] VITALS: BP 155/61; PULSE 79; RESP 20; TEMP 36.4; O2SAT 94
--- NOTE | 2024-08-06 12:17 | W.ANESPOSTOP ---
Postoperative Evaluation Date, Time and Location Date Performed: 08/06/24 Time Performed: 11:48 Patient Location: Day Surgery Unit Vital Signs Most Recent Imported Vital Signs: Most Recent Vital Signs Temp Pulse Resp BP Pulse Ox 36.4 C L 79 20 155/61 H 94 08/06/24 11:39 08/06/24 11:39 08/06/24 11:39 08/06/24 11:39 08/06/24 11:39 Assessment Mental Status: Awake (Alert & Oriented to Patient Baseline) Airway and Respiratory Function: Patent airway with normal (patient baseline) respiratory exam Cardiovascular Function: Hemodynamically Stable Hydration Status: Adequately Hydrated Nausea & Vomiting: No Nausea or Vomiting Pain: Pt. Denies Any Pain Peripheral Nerve Block: Patient did not receive a nerve block
== END 2024-08-06 12:03 | disposition home or self-care (01) ==
LOC: SUR 09:04
PROVIDERS: PCP Family Medicine; Visit Provider Surgery
PROC: 0DJD8ZZ Inspection of Lower Intestinal Tract, Via Natural or Artificial Opening Endoscopic (ICD-10-PCS; CPT 45378; principal; 2024-08-06 10:30)
DX: Z12.11 Encounter for screening for malignant neoplasm of colon (principal); I10 Essential (primary) hypertension; K63.5 Polyp of colon; K57.30 Diverticulosis of large intestine without perforation or abscess without bleeding; K63.89 Other specified diseases of intestine
CPT/HCPCS: 45380; 88305; J2704

== ENCOUNTER 2025-03-20 09:38 | Observation (INO) | payer MEDICARE, BC, SELFPAY ==
[2025-03-20] VITALS (66 sets, daily range): BP systolic 140–218; BP diastolic 61–115; PULSE 89–142; RESP 15–32; TEMP 36.8–37.2; O2SAT 90–96
--- NOTE | 2025-03-20 10:00 | RT.EKG_ITS ---
APPROVED REPORT Exam: Resting ECG Reason for Exam: rapid response Patient Location: E HR:118 bpm ECG Measurements Heart Rate 118 AXIS IN 162 P 67 QRSd 101 QRS -45 QT 345 T 121 QTc 484 Conclusion Sinus tachycardia, rate 118 Borderline prolonged QTc at 484ms T wave inversion I, aVL, <1mm elevation V1, ST depression V3-V4, no priors available for comparison. LVH
[2025-03-20] MEDS: EPINEPHrine 1 MG/ML AMP pres-free 0.3 MG SC (10:05)
[2025-03-20] MEDS: Famotidine 20 MG/2 ML VIAL IVP (10:05)
[2025-03-20] MEDS: methylPREDNISolone SUCC 125 MG VIAL IVP (10:06)
[2025-03-20] MEDS: Tranexamic Acid 1,000 MG/10 ML VIAL 1000 MG IVP (10:06)
[2025-03-20] MEDS: diphenhydrAMINE 50 MG/ML VIAL IVP (10:06)
[2025-03-20 10:12] LABS: Abs Immature Grans 0.03 10^3/uL (0.0-0.06); HCT 44.3 % (36.0-46.0); HGB 14.2 g/dL (11.2-15.7); Immature Grans % 0.4 %; MCH 29.6 pg (27.0-33.0); MCHC 32.1 % (32.0-36.0); MCV 92 fL (80-95); MPV 12.0 fL (8.0-11.0); Platelet Count 215 10^3/uL (130-400); RBC 4.80 10^6/uL (3.93-5.22); RDW 12.9 % (11.7-14.6); RDW-SD 44.0 fL; WBC 8.06 10^3/uL (4.4-10.8)
[2025-03-20] MEDS: Normal Saline 100 ML (10:25)
[2025-03-20 10:27] LABS: ALT 22 U/L (14-59); AST 18 U/L (15-37); Albumin 3.9 g/dL (3.4-5.0); Alkaline Phosphatase 97 U/L (46-116); Anion Gap 11.0 mmol/L (3-11); BUN 21 mg/dL (7-18); Bilirubin, Total 0.8 mg/dL (0.2-1.0); CO2 28.0 mmol/L (21.0-32.0); Calcium 9.5 mg/dL (8.5-10.1); Chloride 104 mmol/L (98-107); Estimated GFR 52.40 (mL/min/1.73m2); Glucose 113 mg/dL (74-106); Magnesium 2.0 mg/dL (1.8-2.4); Potassium 3.4 mmol/L (3.5-5.1); Sodium 143 mmol/L (136-145); Total Protein 8.3 g/dL (6.4-8.2)
--- NOTE | 2025-03-20 10:38 | W.ED.GENAD ---
Discharge Plan Disposition Patient Disposition: Admit to [facility] Condition: Stable Discharge Details Clinical Impression: Angioedema of tongue Admit Date/Time: 03/20/25 12:42 Admit Provider: Aneudy Moncada Attending Provider: Aneudy Moncada Primary Care Provider: Carla Roberts ED Provider: Alice Mckeon General Mode of arrival: ambulatory. Date/Time Provider Initiated Documentation: 03/20/25 09:55. Limitations to Documentation: no limitations. Information obtained by: patient and old records reviewed. 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 The patient reports that this started suddenly this morning, she was in her normal state of health when she went to bed last night. The tongue swelling is making it difficult for her to speak and she has noted swelling on the underside of her chin and anterior neck. She states that she cannot think of any exposures to allergens, no new medications, and states that she feels like her breathing is at its baseline. No rash, nausea or vomiting. Related Data Home Medications ?Medication ?Instructions ?Recorded ?Confirmed algbxuov-yxzkydq-ukez-lutein 1 ea PO DAILY 01/26/14 03/20/25 tablet (Centrum Silver Ultra Women's tablet) cholecalciferol (vitamin D3) 25 1,000 unit PO DAILY 03/25/18 03/20/25 mcg (1,000 unit) capsule naproxen sodium 220 mg capsule 220 mg PO PRN PRN 05/20/19 03/20/25 (Aleve) atorvastatin 40 mg tablet 40 mg PO QHS #90 tabs 04/19/24 03/20/25 hydrochlorothiazide 25 mg tablet 25 mg PO DAILY #90 tabs 07/05/24 03/20/25 losartan 50 mg tablet 50 mg PO DAILY #90 tabs 07/05/24 03/20/25 Previous Rx's ?Medication ?Instructions ?Recorded atorvastatin 40 mg tablet 40 mg PO QHS #90 tabs 04/19/24 hydrochlorothiazide 25 mg tablet 25 mg PO DAILY #90 tabs 07/05/24 losartan 50 mg tablet 50 mg PO DAILY #90 tabs 07/05/24 Allergies Allergy/AdvReac Type Severity Reaction Status Date / Time chondroitin sulfate A Allergy Severe Anaphylaxsi Verified 03/20/25 09:56 s glucosamine Allergy Severe Anaphylaxsi Verified 03/20/25 09:56 s Penicillins Allergy Severe Anaphylaxsi Verified 03/20/25 09:56 s Sulfa (Sulfonamide Allergy Severe Anaphylaxsi Verified 03/20/25 09:56 Antibiotics) s caffeine AdvReac Intermediate heart Verified 03/20/25 09:56 racing, excitability General Stated Complaint: Allergic PHIL: 2 Exam Narrative Exam Narrative: Gen: Awake and alert, in no apparent distress HEENT: Non-icteric sclera, PERRL. The patient has swelling of the left half of the tongue which is quite significant, I do not note any edema of the uvula or posterior pharynx. She has swelling bilaterally in the underside of the chin and anterior neck without overlying redness, warmth. No stridor auscultated Neck: Supple Lungs: No apparent respiratory distress, normal respiratory effort. Lung sounds clear and equal bilaterally without wheezes, rhonchi, rales CV: Appears well perfused, heart with regular rate and rhythm, strong distal pulses Abdomen: Non-distended, soft, nontender MSK: Moves 4 extremities without apparent limitation in ROM Skin: Visualized skin without rashes, cyanosis. Neuro: Normal Gait, no obvious focal deficits or facial asymmetry. Speaks in full but garbled Psych: Appropriate for situation. Course Vital Signs Vital signs: Vital Signs Temperature 36.9 C 03/20/25 09:53 Pulse 110 H 03/20/25 09:53 Respiratory Rate 16 03/20/25 09:53 Blood Pressure 180/89 H 03/20/25 09:53 Pulse Oximetry 93 03/20/25 09:53 Temperature 36.9 C 03/20/25 09:53 Temperature Source Oral 03/20/25 09:53 Pulse 115 H 03/20/25 10:20 Pulse 115 H 03/20/25 10:20 Respiratory Rate 26 H 03/20/25 10:20 Respiratory Effort Normal 03/20/25 10:26 Respiratory Pattern Normal 03/20/25 10:26 Blood Pressure 212/80 H 03/20/25 10:19 Blood Pressure Mean 117 03/20/25 10:19 Blood Pressure Position Sitting 03/20/25 09:53 Pulse Oximetry 95 03/20/25 10:20 Oxygen Delivery Method Room Air 03/20/25 09:53 Oxygen Flow Rate 0 03/20/25 09:53 Lab/Test Results Lab/Test Results: Laboratory Tests Range/Units 03/20/25 09:58 WBC (4.4-10.8) 10^3/uL 8.06 RBC (3.93-5.22) 10^6/uL 4.80 Hgb (11.2-15.7) g/dL 14.2 Hct (36.0-46.0) % 44.3 MCV (80-95) fL 92 MCH (27.0-33.0) pg 29.6 MCHC (32.0-36.0) % 32.1 RDW (11.7-14.6) % 12.9 Plt Count (130-400) 10^3/uL 215 MPV (8.0-11.0) fL 12.0 H Immature Gran % % 0.4 Neutrophils % % 45.4 Lymphocytes % % 41.7 Monocytes % % 9.4 Eosinophils % % 2.4 Basophils % % 0.7 Nucleated RBC % (0.0-0.3) % 0.2 Absolute Neutrophils (1.2-6.7) 10^3/uL 3.66 Absolute Lymphocytes (1.2-3.4) 10^3/uL 3.36 Absolute Monocytes (0.1-0.8) 10^3/uL 0.76 Absolute Eosinophils (0.0-0.7) 10^3/uL 0.19 Absolute Basophils (0.0-0.2) 10^3/uL 0.06 Medical Decision Making This is a 74-year-old female patient presenting for evaluation of tongue and neck swelling. My differential includes but is not limited to angioedema, anaphylaxis, though the patient is without rash or known exposure. Her angioedema is likely due to medications, she is on NSAIDs (naproxen) and blood pressure meds including losartan. I could certainly considered hereditary angioedema given her multiple episodes of tongue and throat swelling in the past that were attributed to anaphylaxis. I do not note any induration of the floor of the mouth and she is without fever or recent illness to suggest deep space neck infection such as Vargas's angina, retropharyngeal abscess, etc. At this time the patient is protecting her airway and we do not need to proceed with emergent intubation. Will provide the patient with SC epinephrine, Benadryl, methylprednisolone, and Pepcid. She will also receive TXA and FFP given my significant concern for angioedema. We will monitor her airway closely. Will obtain labs to include CBC, CMP, magnesium, troponin. - Nearly immediately after subcutaneous epinephrine administration, the patient was noted to have an elevation in her heart rate to the 160s to 200s, wide-complex with triplets, concerning for nonsustained V. tach. The patient states that she feels very jittery and shaky, maintained consciousness and did not become hypotensive. While the code cart was brought into the room and pads were placed we did attempt vagal maneuvers x 1 without success. After approximately 1 minute, the patient was noted to have a decrease in her heart rate and her rhythm became more regular. Her symptoms gradually improved and she did not require medications for cardioversion. We obtained an EKG, which shows a sinus tachycardia with LVH, T wave inversions in 1 and aVL, and ST segment depressions in V3 through V6. She has less than 1 mm of elevation in V1 and does not meet STEMI criteria. She does not have chest pain. - Shortly after administration of the above-noted medications (with the exception of the FFP) the patient had significant and ongoing improvement of her angioedema of her tongue. Her speech became more clear, her swelling subsided but did not resolve, and she was monitored on telemetry with no further arrhythmias. She received a total of 1 unit of FFP and we will hold on the second given her dramatic improvement. I am most suspicious for medication induced angioedema, given the patient's use of losartan and naproxen/ibuprofen. I think she would benefit from an observation admission for airway watch and telemetry. She did not require any additional intervention while in the emergency department and was admitted to the hospitalist team without incident. Alice Mckeon MD [facility] All Active Problems (Updated 03/20/25 @ 12:29 by Alice Mckeon MD) Angioedema of tongue (Acute) Encounter for screening colonoscopy (Acute) Gastroesophageal reflux disease (Acute) asymptomatic - unless the dry cough comes from GERD. We will try the antihistamine first and if no change in symptoms, consider GERD rx. Hypertension (Chronic) Tubular adenoma (Acute) 8/16/11 12/2/19 Arthritis of knee, right (Acute) manages with heating pack Moderate mitral regurgitation (Acute ~06/2022) seen on echo; minimal symptoms Medical History (Updated 03/20/25 @ 12:29 by Alice Mckeon MD) Acute suppurative otitis media of left ear with spontaneous rupture of ear drum Hx of colonic polyps Retinal hemorrhage from ibuprofen; okay to use aleve. Family hx-breast malignancy Surgical History S/P colonoscopy (~06/07/19) 05/25 - tubular adenoma x3 Status post bunionectomy Open Carpal Tunnel release 07/14/15; DR. HOYT; RIGHT Family History (Updated 04/25/23 @ 09:38 by Carla Roberts MD) Mother , age 89 Heart disease TRIPLE BY PASS Breast cancer Father , age 79 Stroke Sister No problems noted. Brother Essential hypertension Heart disease Diabetes Carotid artery stenosis Brother Diabetes Essential hypertension Carotid artery stenosis under observation Maternal Grandfather , age 70 Essential hypertension Heart disease Paternal Grandfather , age 82 Heart disease Colon cancer Maternal Grandmother , age 69 Stomach cancer Paternal Grandmother , age 80 No problems noted. Daughter Essential hypertension Daughter Essential hypertension Other Substance use disorder Social History (Updated 05/05/24 @ 16:16 by Jazmin Freedman) Smoking/Tobacco Use Status: Never Second Hand Exposure: Yes Smoking risk assessment performed?: Yes Alcohol Intake: current Alcohol Intake frequency: holidays/special occasions only Alcohol type: hard liquor Drug use: Never Substance use type: does not use Adopted: No Caregiver/Support person: No Foster care: No Household members: none Housing: house Number of Children: 2 number of grandchildren: 5 Communication Needs: None Do you need help understanding health information?: Rarely 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 Pets and animals: No Sexually active: No Do you think of yourself as: straight/heterosexual Current gender identity: female What is your relationship status?: How often do you talk on the phone with friends or family?: three or more times per week How often do you get together with friends or relatives?: three or more times per week How often do you attend moravian or catholic services?: 1-3 times per year Do you belong to any clubs or organized social groups?: yes Panel score (0-1 are the most socially isolated patients): 2 What type of physical activity do you participate in: walking Duration: 30-45 minutes/day Frequency: 3-4 times per week Evelyn/Pentecostalism: No preference Special evelyn needs: No Agree to transfusion: Yes Seatbelt use: always Helmet use: No Drive intox or ride w/intox waste collection driver: Yes Drive intox or w/intox waste collection driver: rarely Working smoke detector in home: Yes Carbon monox detector in home: Yes Firearms in home: Yes Firearms unloaded and locked: Yes Do you feel safe at home: Yes Do you feel safe in your relationship?: Yes Victim of physical abuse: No Victim of emotional abuse: No Victim of sexual abuse: No Would you like helpful sources: No
[2025-03-20 11:39] LABS: Troponin I 14 ng/L (<or=51)
--- NOTE | 2025-03-20 12:46 | W.PM.HP.N ---
Date of service: 03/20/25 Time of Service: 12:00 Assessment and Plan Assessment and plan (1) Angioedema of tongue: Status: Acute Assessment and plan: Presented with stridor and inability to speak, initially very concerning for airway protection However, good response to epinephrine. Benadryl and steroids loaded. Given FFP and TXA as well in the ED. Edema has resolved Admitting for observation, and at this time she is low risk for intubation Post-treatment tachycardia and hypertension have largely resolved Lengthy bedside discussion about likely causes, most prevalent are NSAIDs and EtOH She is not happy to have to avoid NSAIDs as they are the only thing that help her arthritis ARB reaction less likely but reasonable to change to another agent Anticipate DC Mar 21 with PCP followup (2) NSAIDs adverse reaction: Status: Acute Assessment and plan: Longstanding use of NSAIDs, recent change from scheduled naproxen to PRN alleve At this time NSAID reaction is most likely (3) Arthritis of knee, right: Status: Acute Assessment and plan: Patient reports bone on bone knee arthritis and sciatica Consider treating muscle spasm She has heating and cooling tools, can alternate (4) Hypertension: Status: Chronic Assessment and plan: Held HCTZ and losartan History of Present Illness History of Present Illness Chief Complaint: tongue swelling Narrative: Theresa Mccauley is a 74 year old woman presenting March 20 with acute onset of tongue and throat swelling when she awoke in the morning. She found speaking and swallowing difficult. She was driving to the drugstore to get benadryl when she realized that her throat was hard. Patient reports history of anaphylactic reactions to sulfa, penicillin, glucosamine, chondroitin. Patient reports some milder facial/oral swelling events over the last few months. She no longer takes naproxen but continues to take Alleve for arthritis pain. No recent EtOH. In the ED she was tachycardic to 120, hypertensive to 201/69, tachypneic 26. Initial labs largely unremarkable. She was given epinephrine, H2 bev, steroids, benadryl and then started on TXA and FFP. FFP stopped after 1 bag due to likelihood of medication side effect. PMH includes HTN on ARB and HCTZ, HLD on atorvastatin. assisted NSAIDs for arthritis, recently changed from naproxen to Alleve. Significant allergy history with reported anaphylaxis and possible angioedema. PFSH All Active Problems (Updated 03/21/25 @ 01:49 by Aneudy Moncada MD) NSAIDs adverse reaction (Acute) Angioedema of tongue (Acute) Encounter for screening colonoscopy (Acute) Gastroesophageal reflux disease (Acute) asymptomatic - unless the dry cough comes from GERD. We will try the antihistamine first and if no change in symptoms, consider GERD rx. Hypertension (Chronic) Tubular adenoma (Acute) 02/19/11 06/07/19 Arthritis of knee, right (Acute) manages with heating pack Moderate mitral regurgitation (Acute ~06/2022) seen on echo; minimal symptoms Medical History (Updated 03/21/25 @ 01:49 by Aneudy Moncada MD) Acute suppurative otitis media of left ear with spontaneous rupture of ear drum Hx of colonic polyps Retinal hemorrhage from ibuprofen; okay to use aleve. Family hx-breast malignancy Surgical History S/P colonoscopy (~06/07/19) 05/25 - tubular adenoma x3 Status post bunionectomy Open Carpal Tunnel release 07/14/15; DR. HOYT; RIGHT Family History (Updated 04/25/23 @ 09:38 by Carla Roberts MD) Mother , age 89 Heart disease TRIPLE BY PASS Breast cancer Father , age 79 Stroke Sister No problems noted. Brother Essential hypertension Heart disease Diabetes Carotid artery stenosis Brother Diabetes Essential hypertension Carotid artery stenosis under observation Maternal Grandfather , age 70 Essential hypertension Heart disease Paternal Grandfather , age 82 Heart disease Colon cancer Maternal Grandmother , age 69 Stomach cancer Paternal Grandmother , age 80 No problems noted. Daughter Essential hypertension Daughter Essential hypertension Other Substance use disorder Social History (Updated 05/05/24 @ 16:16 by Jazmin Freedman) Smoking/Tobacco Use Status: Never Second Hand Exposure: Yes Smoking risk assessment performed?: Yes Alcohol Intake: current Alcohol Intake frequency: holidays/special occasions only Alcohol type: hard liquor Drug use: Never Substance use type: does not use Adopted: No Caregiver/Support person: No Foster care: No Household members: none Housing: house Number of Children: 2 number of grandchildren: 5 Communication Needs: None Do you need help understanding health information?: Rarely 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 Pets and animals: No Sexually active: No Do you think of yourself as: straight/heterosexual Current gender identity: female What is your relationship status?: How often do you talk on the phone with friends or family?: three or more times per week How often do you get together with friends or relatives?: three or more times per week How often do you attend taoism or jainism services?: 1-3 times per year Do you belong to any clubs or organized social groups?: yes Panel score (0-1 are the most socially isolated patients): 2 What type of physical activity do you participate in: walking Duration: 30-45 minutes/day Frequency: 3-4 times per week Evelyn/Moravian: No preference Special evelyn needs: No Agree to transfusion: Yes Seatbelt use: always Helmet use: No Drive intox or ride w/intox delivery truck driver: Yes Drive intox or w/intox delivery truck driver: rarely Working smoke detector in home: Yes Carbon monox detector in home: Yes Firearms in home: Yes Firearms unloaded and locked: Yes Do you feel safe at home: Yes Do you feel safe in your relationship?: Yes Victim of physical abuse: No Victim of emotional abuse: No Victim of sexual abuse: No Would you like helpful sources: No Meds Allergies and Home Medications Allergies Allergy/AdvReac Type Severity Reaction Status Date / Time chondroitin sulfate A Allergy Severe Anaphylaxsi Verified 03/20/25 09:56 s glucosamine Allergy Severe Anaphylaxsi Verified 03/20/25 09:56 s Penicillins Allergy Severe Anaphylaxsi Verified 03/20/25 09:56 s Sulfa (Sulfonamide Allergy Severe Anaphylaxsi Verified 03/20/25 09:56 Antibiotics) s caffeine AdvReac Intermediate heart Verified 03/20/25 09:56 racing, excitability Home Medications ?Medication ?Instructions ?Recorded ?Confirmed ?Type vwozdxld-mmgmamt-eygk-lutein 1 ea PO DAILY 01/26/14 03/20/25 History tablet (Centrum Silver Ultra Women's tablet) cholecalciferol (vitamin D3) 25 1,000 unit PO DAILY 03/25/18 03/20/25 History mcg (1,000 unit) capsule naproxen sodium 220 mg capsule 220 mg PO PRN PRN 05/20/19 03/20/25 History (Aleve) atorvastatin 40 mg tablet 40 mg PO QHS #90 tabs 10/14/24 09/14/25 Rx hydrochlorothiazide 25 mg tablet 25 mg PO DAILY #90 tabs 07/05/24 03/20/25 Rx losartan 50 mg tablet 50 mg PO DAILY #90 tabs 07/05/24 03/20/25 Rx Exam Narrative Exam Narrative: General: This is a very pleasant woman in no distress after emergent treatment HEENT: Normocephalic, atraumatic, tongue and neck swelling resolved CV: tachycardic, hypertensive Resp: CTAB Abd: soft, NTND MSK: voluntary motion x4 Neuro: awake, alert, no focal deficits Results Labs 03/20/25 09:58 03/20/25 09:58 Labs: Laboratory Results - last 24 hr 03/20/25 03/20/25 03/20/25 09:58 10:45 11:04 WBC 8.06 RBC 4.80 Hgb 14.2 Hct 44.3 MCV 92 MCH 29.6 MCHC 32.1 RDW 12.9 Plt Count 215 MPV 12.0 H Immature Gran % 0.4 Neutrophils % 45.4 Lymphocytes % 41.7 Monocytes % 9.4 Eosinophils % 2.4 Basophils % 0.7 Nucleated RBC % 0.2 Absolute Neutrophils 3.66 Absolute Lymphocytes 3.36 Absolute Monocytes 0.76 Absolute Eosinophils 0.19 Absolute Basophils 0.06 Sodium 143 Potassium 3.4 L Chloride 104 Carbon Dioxide 28.0 Anion Gap 11.0 BUN 21 H Creatinine 1.1 H Est GFR (CKD-EPI 2020) 52.40 Glucose 113 H Calcium 9.5 Magnesium 2.0 Total Bilirubin 0.8 AST 18 ALT 22 Alkaline Phosphatase 97 Troponin I 14 Total Protein 8.3 H Albumin 3.9 ABO/Rh A Positive Blood Type Recheck Antibody Screen NEGATIVE 03/20/25 11:50 WBC RBC Hgb Hct MCV MCH MCHC RDW Plt Count MPV Immature Gran % Neutrophils % Lymphocytes % Monocytes % Eosinophils % Basophils % Nucleated RBC % Absolute Neutrophils Absolute Lymphocytes Absolute Monocytes Absolute Eosinophils Absolute Basophils Sodium Potassium Chloride Carbon Dioxide Anion Gap BUN Creatinine Est GFR (CKD-EPI 2020) Glucose Calcium Magnesium Total Bilirubin AST ALT Alkaline Phosphatase Troponin I Total Protein Albumin ABO/Rh Blood Type Recheck A Positive Antibody Screen Last Vital Signs Temp 36.9 C 03/20/25 09:53 Pulse 116 H 03/20/25 12:20 Resp 15 03/20/25 12:20 BP 194/82 H 03/20/25 12:01 Pulse Ox 96 03/20/25 12:20 Time Spent Time spent with Patient: 40-54 minutes Time was spent: preparing to see the patient(eg.review tests), obtaining and/or reviewing separately otained hiistory, ordering medications,tests, procedures, referring, communicating with other health career law clerk, indepentently interpreting results, counseling the patient and care coordination
--- NOTE | 2025-03-20 17:15 | RT.EKG_ITS ---
APPROVED REPORT Exam: Resting ECG Reason for Exam: arrhythmia Patient Location: I HR:98 bpm ECG Measurements Heart Rate 98 AXIS AZ 182 P 74 QRSd 100 QRS -44 QT 388 T 91 QTc 496 Conclusion Sinus rhythm...normal P axis, V-rate 50- 99 Left anterior fascicular block...axis(240,-40), init forces inf LVH with secondary repolarization abnormality...multi-LVH criteria, abnrm ST-T
[2025-03-20] MEDS: Normal Saline Flush 10 ML SYR IVP (20:11)
--- NOTE | 2025-03-20 21:36 | W.PC.ACHO ---
Registration Status: ADM KRYSTAL Primary Language: Preferred Language: [place] ED Information & Data Chief Complaint Allergic 03/20/25 10:38 Triage Note Patient states that tongue 03/20/25 09:53 began swelling at 0700 and is getting worse going down into throat. Causing her to speak oddly. Denies any difficulty breathing. Medical / Surgical History (Last Reviewed 08/06/24 @ 09:36 by Marion Kirby) Acute suppurative otitis media of left ear with spontaneous rupture of ear drum Hx of colonic polyps Retinal hemorrhage Family hx-breast malignancy (Last Reviewed 08/06/24 @ 09:36 by Marion Kirby) S/P colonoscopy (~06/07/19) Status post bunionectomy Open Carpal Tunnel release Most Recent Vital Signs Temperature 37.2 C 03/20/25 14:54 Temperature Source Temporal Artery Scan 03/20/25 14:54 Pulse 97 H 03/20/25 16:15 Pulse 97 H 03/20/25 16:15 Respiratory Rate 22 03/20/25 16:15 Respiratory Effort Normal 03/20/25 10:26 Respiratory Pattern Normal 03/20/25 10:26 Blood Pressure 148/64 H 03/20/25 16:15 Blood Pressure Mean 86 03/20/25 16:15 Blood Pressure Position Sitting 03/20/25 09:53 Pulse Oximetry 93 03/20/25 16:15 Oxygen Delivery Method Room Air 03/20/25 09:53 Oxygen Flow Rate 0 03/20/25 09:53 Allergies chondroitin sulfate A Allergy (Severe, Verified 03/20/25 09:56) Anaphylaxsis pt denies allergy glucosamine Allergy (Severe, Verified 03/20/25 09:56) Anaphylaxsis pt denies allergy Penicillins Allergy (Severe, Verified 03/20/25 09:56) Anaphylaxsis Sulfa (Sulfonamide Antibiotics) Allergy (Severe, Verified 03/20/25 09:56) Anaphylaxsis caffeine Adverse Reaction (Intermediate, Verified 03/20/25 09:56) heart racing, excitability Active Medications Generic Name Dose Route Start Last Admin Trade Name Freq PRN Reason Stop Dose Admin Sodium Chloride 0 ml 03/20/25 20:00 03/20/25 20:11 Normal Saline Flush 10 Ml Syr IVP 10 ml BID JOLIE Administration IV IV Catheter Type [Right Saline Lock Antecubital] IV Catheter Gauge [Right 18 Antecubital] Diet Orders Category Date Time Status DIET [Regular/Normal] [DIET] Nutrition 03/20/25 Dinner Active Diagnostics 03/20/25 03/20/25 03/20/25 Range/Units 13:16 11:50 11:16 WBC (4.4-10.8) 10^3/uL RBC (3.93-5.22) 10^6/uL Hgb (11.2-15.7) g/dL Hct (36.0-46.0) % MCV (80-95) fL MCH (27.0-33.0) pg MCHC (32.0-36.0) % RDW (11.7-14.6) % Plt Count (130-400) 10^3/uL MPV (8.0-11.0) fL Immature Gran % % Neutrophils % % Lymphocytes % % Monocytes % % Eosinophils % % Basophils % % Nucleated RBC % (0.0-0.3) % Absolute Neutrophils (1.2-6.7) 10^3/uL Absolute Lymphocytes (1.2-3.4) 10^3/uL Absolute Monocytes (0.1-0.8) 10^3/uL Absolute Eosinophils (0.0-0.7) 10^3/uL Absolute Basophils (0.0-0.2) 10^3/uL Sodium (136-145) mmol/L Potassium (3.5-5.1) mmol/L Chloride (98-107) mmol/L Carbon Dioxide (21.0-32.0) mmol/L Anion Gap (3-11) mmol/L BUN (7-18) mg/dL Creatinine (0.55-1.02) mg/dL Est GFR (CKD-EPI 2020) (mL/min/1.73m2) Glucose (74-106) mg/dL Calcium (8.5-10.1) mg/dL Magnesium (1.8-2.4) mg/dL Total Bilirubin (0.2-1.0) mg/dL AST (15-37) U/L ALT (14-59) U/L Alkaline Phosphatase (46-116) U/L Troponin I Cancelled Cancelled (<or=51) ng/L Total Protein (6.4-8.2) g/dL Albumin (3.4-5.0) g/dL ABO/Rh Blood Type Recheck A Positive Antibody Screen 03/20/25 03/20/25 03/20/25 Range/Units 11:04 10:45 09:58 WBC 8.06 (4.4-10.8) 10^3/uL RBC 4.80 (3.93-5.22) 10^6/uL Hgb 14.2 (11.2-15.7) g/dL Hct 44.3 (36.0-46.0) % MCV 92 (80-95) fL MCH 29.6 (27.0-33.0) pg MCHC 32.1 (32.0-36.0) % RDW 12.9 (11.7-14.6) % Plt Count 215 (130-400) 10^3/uL MPV 12.0 H (8.0-11.0) fL Immature Gran % 0.4 % Neutrophils % 45.4 % Lymphocytes % 41.7 % Monocytes % 9.4 % Eosinophils % 2.4 % Basophils % 0.7 % Nucleated RBC % 0.2 (0.0-0.3) % Absolute Neutrophils 3.66 (1.2-6.7) 10^3/uL Absolute Lymphocytes 3.36 (1.2-3.4) 10^3/uL Absolute Monocytes 0.76 (0.1-0.8) 10^3/uL Absolute Eosinophils 0.19 (0.0-0.7) 10^3/uL Absolute Basophils 0.06 (0.0-0.2) 10^3/uL Sodium 143 (136-145) mmol/L Potassium 3.4 L (3.5-5.1) mmol/L Chloride 104 (98-107) mmol/L Carbon Dioxide 28.0 (21.0-32.0) mmol/L Anion Gap 11.0 (3-11) mmol/L BUN 21 H (7-18) mg/dL Creatinine 1.1 H (0.55-1.02) mg/dL Est GFR (CKD-EPI 2020) 52.40 (mL/min/1.73m2) Glucose 113 H (74-106) mg/dL Calcium 9.5 (8.5-10.1) mg/dL Magnesium 2.0 (1.8-2.4) mg/dL Total Bilirubin 0.8 (0.2-1.0) mg/dL AST 18 (15-37) U/L ALT 22 (14-59) U/L Alkaline Phosphatase 97 (46-116) U/L Troponin I 14 (<or=51) ng/L Total Protein 8.3 H (6.4-8.2) g/dL Albumin 3.9 (3.4-5.0) g/dL ABO/Rh A Positive Blood Type Recheck Antibody Screen NEGATIVE Intake and Output - 24 Hour Total 03/20/25 09:38 thru 03/20/25 16:17 Intake Total 199 Balance 199 Weight 106.6 kg Intake: Blood Product 199 Frozen Plasma Unit 199 [id number] Falls Risk Assessment History of Falls No History 03/20/25 10:26 Contributing Factors No Factors 03/20/25 10:26 Ambulatory Aids Independent 03/20/25 10:26 Tubes/Lines None 03/20/25 10:26 Gait Evaluation No gait disturbance 03/20/25 10:26 Cognition No cognitive impairment 03/20/25 10:26 Fall Total Score 0 03/20/25 10:26 Level of Risk Standard/Low Risk 03/20/25 10:26 v v v v v v v v v Sending and/or Receiving Nurses: Please use comment section below to note any information pertinent to the patient hand-off not included above. Information / Comments: On presentation to ED had limited speech due to tongue swelling. Speech now clear. Tongue After workup, suspicion is that symptoms are seconary to medication, possibly NSAIDs After medications for anaphylaxis, went into V-tach which was resolved with vagal maneuver - no adenosine needed. HR low 100's. BP running high. Per Dr. Moncada, plan is not to treat unless she is symptomatic. FFP one unit given - Second unit canceled. A/O x4. Steady on feet. All questions answered. Report received from: Layne Espinal RN
[2025-03-21] VITALS (13 sets, daily range): BP systolic 129–180; BP diastolic 73–94; PULSE 68–96; RESP 16–24; TEMP 36.7–37.2; O2SAT 99
--- NOTE | 2025-03-21 07:59 | PUCON_ITS ---
General Date Of Service Date of service: 03/21/25 Time of Service: 06:45 Requesting physician: Aneudy Moncada Reason for Consult: Angioedema Recommendations: Impression: 1. Angioedema - suspect medication allergy - NSAIDS vs HCTZ / sulfa vs less likely ARB. 2. HTN - on HCTZ and losartan Recommendations - avoid NSAIDS - change HCTZ and losartan to alternative antihypertensive. She has a sulfa allergy, so it's possible HCTZ could have contributed. Will defer to hospitalist team - recommend outpatient dog trainer referral - check alpha-gal IgE to assess for red meat allergy - can be done as outpatient - recommend 2 more days of prednisone (40 mg daily) - recommend discharge on H1 and H2 bev - OK for discharge from a pulmonary standpoint Discussed with Dr. Dorado History of Present Illness History of Present Illness Chief Complaint: Angioedema Narrative: Patient is a 74 yo with a history of recurrent tongue swelling, HTN, and mitral regurgitation, who was admitted on 03/20 for angioedema. She reported waking up on 03/20 feeling normal. She took her AM medications and had a banana, then developed some tongue swelling. Was driving to get benadryl, but her swelling significantly increased, so drove the the ED. She had significant tongue swelling on presentation. Was given epi, systemic steroids, benadryl, FFP and TXA. Her swelling then improved. She noted that she has had recurrent episodes of tongue swelling over the past few months. Mostly took benadryl for these episodes, with improvement. 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 Last red-meat ingestion was on 03/18. She is currently on room air. Denies dyspnea or cough. No chest pain. Tongue swelling has significantly improved. ROS: 10 pt ROS negative except as above PFSH All Active Problems (Updated 03/21/25 @ 01:49 by Aneudy Moncada MD) NSAIDs adverse reaction (Acute) Angioedema of tongue (Acute) Encounter for screening colonoscopy (Acute) Gastroesophageal reflux disease (Acute) asymptomatic - unless the dry cough comes from GERD. We will try the antihistamine first and if no change in symptoms, consider GERD rx. Hypertension (Chronic) Tubular adenoma (Acute) 02/19/11 06/07/19 Arthritis of knee, right (Acute) manages with heating pack Moderate mitral regurgitation (Acute ~06/2022) seen on echo; minimal symptoms Medical History (Updated 03/21/25 @ 01:49 by Aneudy Moncada MD) Acute suppurative otitis media of left ear with spontaneous rupture of ear drum Hx of colonic polyps Retinal hemorrhage from ibuprofen; okay to use aleve. Family hx-breast malignancy Surgical History S/P colonoscopy (~06/07/19) 05/25 - tubular adenoma x3 Status post bunionectomy Open Carpal Tunnel release 07/14/15; DR. HOYT; RIGHT Family History (Updated 04/25/23 @ 09:38 by Carla Roberts MD) Mother , age 89 Heart disease TRIPLE BY PASS Breast cancer Father , age 79 Stroke Sister No problems noted. Brother Essential hypertension Heart disease Diabetes Carotid artery stenosis Brother Diabetes Essential hypertension Carotid artery stenosis under observation Maternal Grandfather , age 70 Essential hypertension Heart disease Paternal Grandfather , age 82 Heart disease Colon cancer Maternal Grandmother , age 69 Stomach cancer Paternal Grandmother , age 80 No problems noted. Daughter Essential hypertension Daughter Essential hypertension Other Substance use disorder Social History (Updated 05/05/24 @ 16:16 by Jazmin Freedman) Smoking/Tobacco Use Status: Never Second Hand Exposure: Yes Smoking risk assessment performed?: Yes Alcohol Intake: current Alcohol Intake frequency: holidays/special occasions only Alcohol type: hard liquor Drug use: Never Substance use type: does not use Adopted: No Caregiver/Support person: No Foster care: No Household members: none Housing: house Number of Children: 2 number of grandchildren: 5 Communication Needs: None Do you need help understanding health information?: Rarely 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 Pets and animals: No Sexually active: No Do you think of yourself as: straight/heterosexual Current gender identity: female What is your relationship status?: How often do you talk on the phone with friends or family?: three or more times per week How often do you get together with friends or relatives?: three or more times per week How often do you attend muslim or caodaism services?: 1-3 times per year Do you belong to any clubs or organized social groups?: yes Panel score (0-1 are the most socially isolated patients): 2 What type of physical activity do you participate in: walking Duration: 30-45 minutes/day Frequency: 3-4 times per week Evelyn/Mu-Ism: No preference Special evelyn needs: No Agree to transfusion: Yes Seatbelt use: always Helmet use: No Drive intox or ride w/intox new autos delivery driver: Yes Drive intox or w/intox new autos delivery driver: rarely Working smoke detector in home: Yes Carbon monox detector in home: Yes Firearms in home: Yes Firearms unloaded and locked: Yes Do you feel safe at home: Yes Do you feel safe in your relationship?: Yes Victim of physical abuse: No Victim of emotional abuse: No Victim of sexual abuse: No Would you like helpful sources: No Visit Medication and Allergies Active Medications Generic Name Dose Route Start Last Admin Trade Name Freq PRN Reason Stop Dose Admin Albuterol/Ipratropium 3 ml 03/20/25 12:41 Albuterol/Ipratropium 3 Ml Upd Vial UPD Q6H PRN PRN IV Miscellaneous Supplies 1 each 03/20/25 10:00 Iv Access-Emergency Dept IV DIRECTED JOLIE Sodium Chloride 0 ml 03/20/25 09:55 Normal Saline Flush 10 Ml Syr IVP PRN PRN Sodium Chloride 0 ml 03/20/25 20:00 03/20/25 20:11 Normal Saline Flush 10 Ml Syr IVP 10 ml BID JOLIE Administration Sodium Chloride 0 ml 03/20/25 09:55 Normal Saline 10 Ml Vial IJ DIRECTED PRN Allergies chondroitin sulfate A Allergy (Severe, Verified 03/20/25 09:56) Anaphylaxsis glucosamine Allergy (Severe, Verified 03/20/25 09:56) Anaphylaxsis Penicillins Allergy (Severe, Verified 03/20/25 09:56) Anaphylaxsis Sulfa (Sulfonamide Antibiotics) Allergy (Severe, Verified 03/20/25 09:56) Anaphylaxsis caffeine Adverse Reaction (Intermediate, Verified 03/20/25 09:56) heart racing, excitability Exam Narrative Exam Narrative: General: alert, no acute distress Head: normocephalic ENT: no stridor, trachea midline, minimal tongue swelling CV: normal rate, regular rhythm Respiratory: no wheezing, no crackles, no rhonchi, no prolonged expiration GI: abd soft, non-tender, non-distended Skin: no rashes Extremities: trace edema, no digital clubbing Psych: normal affect Results Last Vital Signs Temp 36.7 C 03/21/25 04:03 Pulse 80 03/21/25 04:03 Resp 18 03/21/25 06:00 BP 143/82 H 03/21/25 04:03 Pulse Ox 93 03/20/25 20:17 Labs 03/20/25 09:58 03/20/25 09:58 Labs: Laboratory Results - last 24 hr 03/20/25 03/20/25 03/20/25 09:58 10:45 11:04 WBC 8.06 RBC 4.80 Hgb 14.2 Hct 44.3 MCV 92 MCH 29.6 MCHC 32.1 RDW 12.9 Plt Count 215 MPV 12.0 H Immature Gran % 0.4 Neutrophils % 45.4 Lymphocytes % 41.7 Monocytes % 9.4 Eosinophils % 2.4 Basophils % 0.7 Nucleated RBC % 0.2 Absolute Neutrophils 3.66 Absolute Lymphocytes 3.36 Absolute Monocytes 0.76 Absolute Eosinophils 0.19 Absolute Basophils 0.06 Sodium 143 Potassium 3.4 L Chloride 104 Carbon Dioxide 28.0 Anion Gap 11.0 BUN 21 H Creatinine 1.1 H Est GFR (CKD-EPI 2020) 52.40 Glucose 113 H Calcium 9.5 Magnesium 2.0 Total Bilirubin 0.8 AST 18 ALT 22 Alkaline Phosphatase 97 Troponin I 14 Total Protein 8.3 H Albumin 3.9 ABO/Rh A Positive Blood Type Recheck Antibody Screen NEGATIVE 03/20/25 03/20/25 03/20/25 11:16 11:50 13:16 WBC RBC Hgb Hct MCV MCH MCHC RDW Plt Count MPV Immature Gran % Neutrophils % Lymphocytes % Monocytes % Eosinophils % Basophils % Nucleated RBC % Absolute Neutrophils Absolute Lymphocytes Absolute Monocytes Absolute Eosinophils Absolute Basophils Sodium Potassium Chloride Carbon Dioxide Anion Gap BUN Creatinine Est GFR (CKD-EPI 2020) Glucose Calcium Magnesium Total Bilirubin AST ALT Alkaline Phosphatase Troponin I Cancelled Cancelled Total Protein Albumin ABO/Rh Blood Type Recheck A Positive Antibody Screen
--- NOTE | 2025-03-21 08:52 | W.PM.DS.N ---
Date of service: 03/21/25 Time of Service: 08:52 DS: Diagnosis Discharge Diagnosis (1) Angioedema of tongue: Status: Acute (2) NSAIDs adverse reaction: Status: Acute (3) Arthritis of knee, right: Status: Acute (4) Hypertension: Status: Chronic Discharge Plan Disposition Patient Disposition: Home Condition: Good Discharge Details Reason For Visit: Angioedema Admit Date/Time: 03/20/25 12:42 Admit Provider: Aneudy Moncada Attending Provider: Aneudy Moncada Primary Care Provider: Carla Roberts Hospital Course Hospital Course: 74 year old woman with HTN, osteoarthritis, and history of anaphylactic allergies who presented March 20 with acute onset of tongue and throat swelling with difficulty speaking and swallowing when she awoke in the morning. She reported some recent episodes of more mild facial and oral swelling. She was treated with epinephrine and methylprednisolone along with diphenhydramine and famotidine and observed overnight in the ICU. Her swelling greatly improved. She was seen and the case discussed with Dr. Tobar from pulmonology. She was discharged on cetirizine and famotidine and 3 more days of prednisone. 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 She had recently changed to Aleve brand. She had a history of anaphylaxis with sulfa, penicillin, and glucosamine/condroiton. Her ARB and thiazide medications for HTN were held on admission. Given angioedema can rarely develop with ARB medications, her losartan was stopped. Given her anaphylaxis with sulfas, the HCTZ was also stopped. She was given spironolactone 25mg and amlodipine 2.5mg prior to discharge to manage her blood pressure. Recommendations for Follow Up Recommended tests to be ordered by follow up provider: BMP 1 week with blood pressure check, PCP follow up. Allergy/immunology referral Home Meds and New Rx's Prescriptions: New spironolactone 25 mg tablet 25 mg PO DAILY Qty: 30 0RF acetaminophen 325 mg capsule 325 mg PO Q6H PRNQty: 90 0RF Rx Instructions: may take 1-2 capsules amlodipine 2.5 mg tablet 2.5 mg PO DAILY Qty: 30 0RF cetirizine 10 mg tablet 10 mg PO DAILY Qty: 90 0RF famotidine 20 mg tablet 20 mg PO DAILY Qty: 90 0RF Rx Instructions: for angioedema prednisone 20 mg tablet 40 mg PO DAILY 3 Days Qty: 6 0RF Continued cholecalciferol (vitamin D3) 1,000 unit capsule 1,000 unit PO DAILY Centrum Silver Ultra Women's 1 EACH tablet 1 ea PO DAILY atorvastatin 40 mg tablet 40 mg PO QHS Qty: 90 3RF Discontinued naproxen sodium [Aleve] 220 mg capsule 220 mg PO PRN PRN losartan 50 mg tablet 50 mg PO DAILY Qty: 90 4RF hydrochlorothiazide 25 mg tablet 25 mg PO DAILY Qty: 90 4RF Discharge Instructions Instructions: Angioedema (DC) Additional Instructions: You should take both cetirizine (Zyrtec) and famotidine (pepcid) daily. These block histamines which lead to swelling. You should take 3 more days of the steroid, which decreased allergic reactions. You should avoid Aleve (naproxen) and all related medications (NSAIDs) in the future Both of your blood pressure medications were stopped due to possibly relation to your allergic reaction. You were given two new medications that are less likely to trigger allergies. You will need to follow up for blood testing and blood pressure check next week after this change. You can take acetaminophen (Tylenol) for routine aches and pains Referrals: Carla Roberts MD [Primary Care Provider, Medicine] - 03/29/25 1:20 pm Misa Vargas MD [ [facility] STAFF PHYSICIAN, [facility]] - 03/29/25 1:20 pm Activity:: Activity as Tolerated Equipment/Supplies:: No Equipment Needed Diet:: As Tolerated Discharge Orders Discharge Orders: Discharge Order (Routine); Ordered 03/21/25 Ordered By: Lamberto Dorado DS: Summary Time Spent with Patient providing and/or coordinating discharge services: Greater than 30 minutes Status at Discharge Functional status at discharge: independent ambulation Overall status at discharge: patient is back to baseline Mental Status: mental status grossly normal Speech and Movement: speech and movement normal Mood: congruent mood Affect: normal affect Exam Narrative Exam Narrative: General: alert, no acute distress, NAD ENT: no visible swelling of tongue or oropharynx CV: normal rate, regular rhythm, 2/6 systolic murmur Respiratory: no wheezing, no crackles, no rhonchi, no prolonged expiration, normal effort, speaking in full sentances GI: abd soft, non-tender, non-distended Skin: no hives or other rashes Extremities: trace edema, no digital clubbing, no swelling Psych Mental Status: mental status grossly normal Speech and Movement: speech and movement normal Mood: congruent mood Affect: normal affect DS: Data Vitals/I&O Vitals and I&O: Vital Signs Temperature 36.7 C 03/21/25 04:03 Temperature Source Tympanic 03/20/25 20:00 Pulse 92 H 03/21/25 08:01 Pulse 94 H 03/21/25 08:01 Respiratory Rate 24 03/21/25 08:01 Respiratory Effort Normal 03/20/25 10:26 Respiratory Pattern Normal 03/20/25 10:26 Blood Pressure 180/94 H 03/21/25 08:01 Blood Pressure Mean 115 03/21/25 08:01 Blood Pressure Position Sitting 03/20/25 09:53 Pulse Oximetry 93 03/20/25 20:17 Oxygen Delivery Method Room Air 03/20/25 20:00 Oxygen Flow Rate 0 03/20/25 20:00 Intake & Output 03/20/25 03/20/25 03/21/25 11:59 23:59 11:59 Intake Total 449 / 449 Output Total 350 / 350 800 / 800 Balance 99 / 99 -800 / -800 Weight 106.594 kg 106.6 kg 107 kg Intake: Oral 250 / 250 Blood Product 199 / 199 Frozen Plasma Unit 199 / 199 [id number] Output: Urine 350 / 350 800 / 800 Other: Urine Color Yellow Yellow Urine Appearance Clear Clear Urine Odor Strong Comment Mixed with stool. Unable to asses color/clarity Stool Size Moderate Stool Characteristics Soft Formed Data Completed and Pending Labs on day of discharge: Labs from last 24 hours 03/20/25 03/20/25 03/20/25 13:16 11:50 11:16 WBC RBC Hgb Hct MCV MCH MCHC RDW Plt Count MPV Immature Gran % Neutrophils % Lymphocytes % Monocytes % Eosinophils % Basophils % Nucleated RBC % Absolute Neutrophils Absolute Lymphocytes Absolute Monocytes Absolute Eosinophils Absolute Basophils Sodium Potassium Chloride Carbon Dioxide Anion Gap BUN Creatinine Est GFR (CKD-EPI 2020) Glucose Calcium Magnesium Total Bilirubin AST ALT Alkaline Phosphatase Troponin I Cancelled Cancelled Total Protein Albumin ABO/Rh Blood Type Recheck A Positive Antibody Screen 03/20/25 03/20/25 03/20/25 11:04 10:45 09:58 WBC 8.06 RBC 4.80 Hgb 14.2 Hct 44.3 MCV 92 MCH 29.6 MCHC 32.1 RDW 12.9 Plt Count 215 MPV 12.0 H Immature Gran % 0.4 Neutrophils % 45.4 Lymphocytes % 41.7 Monocytes % 9.4 Eosinophils % 2.4 Basophils % 0.7 Nucleated RBC % 0.2 Absolute Neutrophils 3.66 Absolute Lymphocytes 3.36 Absolute Monocytes 0.76 Absolute Eosinophils 0.19 Absolute Basophils 0.06 Sodium 143 Potassium 3.4 L Chloride 104 Carbon Dioxide 28.0 Anion Gap 11.0 BUN 21 H Creatinine 1.1 H Est GFR (CKD-EPI 2020) 52.40 Glucose 113 H Calcium 9.5 Magnesium 2.0 Total Bilirubin 0.8 AST 18 ALT 22 Alkaline Phosphatase 97 Troponin I 14 Total Protein 8.3 H Albumin 3.9 ABO/Rh A Positive Blood Type Recheck Antibody Screen NEGATIVE PFSH All Active Problems (Updated 03/21/25 @ 01:49 by Aneudy Moncaad MD) NSAIDs adverse reaction (Acute) Angioedema of tongue (Acute) Encounter for screening colonoscopy (Acute) Moderate mitral regurgitation (Acute ~06/2022) seen on echo; minimal symptoms Arthritis of knee, right (Acute) manages with heating pack Tubular adenoma (Acute) 02/19/11 06/07/19 Hypertension (Chronic) Gastroesophageal reflux disease (Acute) asymptomatic - unless the dry cough comes from GERD. We will try the antihistamine first and if no change in symptoms, consider GERD rx. Medical History (Updated 03/21/25 @ 01:49 by Aneudy Moncada MD) Acute suppurative otitis media of left ear with spontaneous rupture of ear drum Hx of colonic polyps Retinal hemorrhage from ibuprofen; okay to use aleve. Family hx-breast malignancy Surgical History S/P colonoscopy (~06/07/19) 05/25 - tubular adenoma x3 Status post bunionectomy Open Carpal Tunnel release 07/14/15; DR. HOYT; RIGHT Family History (Updated 04/25/23 @ 09:38 by Carla Roberts MD) Mother , age 89 Heart disease TRIPLE BY PASS Breast cancer Father , age 79 Stroke Sister No problems noted. Brother Essential hypertension Heart disease Diabetes Carotid artery stenosis Brother Diabetes Essential hypertension Carotid artery stenosis under observation Maternal Grandfather , age 70 Essential hypertension Heart disease Paternal Grandfather , age 82 Heart disease Colon cancer Maternal Grandmother , age 69 Stomach cancer Paternal Grandmother , age 80 No problems noted. Daughter Essential hypertension Daughter Essential hypertension Other Substance use disorder Social History (Updated 05/05/24 @ 16:16 by Jazmin Freedman) Smoking/Tobacco Use Status: Never Second Hand Exposure: Yes Smoking risk assessment performed?: Yes Alcohol Intake: current Alcohol Intake frequency: holidays/special occasions only Alcohol type: hard liquor Drug use: Never Substance use type: does not use Adopted: No Caregiver/Support person: No Foster care: No Household members: none Housing: house Number of Children: 2 number of grandchildren: 5 Communication Needs: None Do you need help understanding health information?: Rarely 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 Pets and animals: No Sexually active: No Do you think of yourself as: straight/heterosexual Current gender identity: female What is your relationship status?: How often do you talk on the phone with friends or family?: three or more times per week How often do you get together with friends or relatives?: three or more times per week How often do you attend jehovah's witness or taoism services?: 1-3 times per year Do you belong to any clubs or organized social groups?: yes Panel score (0-1 are the most socially isolated patients): 2 What type of physical activity do you participate in: walking Duration: 30-45 minutes/day Frequency: 3-4 times per week Evelyn/Pentecostalism: No preference Special evelyn needs: No Agree to transfusion: Yes Seatbelt use: always Helmet use: No Drive intox or ride w/intox drivers license examiner: Yes Drive intox or w/intox drivers license examiner: rarely Working smoke detector in home: Yes Carbon monox detector in home: Yes Firearms in home: Yes Firearms unloaded and locked: Yes Do you feel safe at home: Yes Do you feel safe in your relationship?: Yes Victim of physical abuse: No Victim of emotional abuse: No Victim of sexual abuse: No Would you like helpful sources: No Time Spent with Patient Time Spent with Patient: <45 minutes Time was spent: preparing to see the patient(eg.review tests), obtaining and/or reviewing separately otained hiistory, ordering medications,tests, procedures, referring, communicating with other health medicare interviewer, indepentently interpreting results, counseling the patient and care coordination
[2025-03-21] MEDS: predniSONE 20 MG TAB 40 MG PO (09:02)
[2025-03-21] MEDS: amLODIPine 5 MG TAB 2.5 MG PO (09:03)
[2025-03-21] MEDS: Spironolactone 25 MG TAB PO (09:04)
--- NOTE | 2025-03-21 09:15 | INITIAL_ITS ---
Date of service: 03/21/25 Time of Service: 09:19 Care Management Initial Assmt Initial Assessment Reason for Hospitalization: angioedema of tongue Functional Status/Living Situation Patient Presentation: Theresa presented to the ED yesterday morning with c/o stridor and inability to speak. She was given epinepherine and had a good response. She was loaded with Benadryl and steroids and was admitted in observation to ICU. Theresa was feeling much better this morning and was deemed ready for discharge home. Theresa was sitting in the bed side chair, fully dressed, when CM met with her this morning. She stated that she is ready to go home. She has a ride and a f/u appointment with her PCP. Town of Residence: [facility] Resides with: Alone Significant Other/Family: Local (daughters Shama and Anne and their families) Natural Supports: family Employment Status: Retired Instrumental Activities of Daily Living (ADLs): Independent Medications Medication Management: No Issues/Barriers identified Advance Directives Advance Directives: Do you have an Advance Directive: Y , 10:36 AD On File at [facility]: N 08/01/22, 10:36 Date Asked 03/20/25 03/20/25, 10:36 AD Date Reviewed COLST On File at [facility] COLST Date Scanned Code Status Resuscitation Status Full Code Insurance Coverage/Financial Issues Insurance: Medicare Part A & B /[facility] Care Team Visit Care Team Role Provider Type Carla Roberts MD Primary Care Provider [facility] STAFF PHYSICIAN Carine Bazan, FOOD AND BEVERAGE SERVICE MANAGER Other Providers SPEECH LANGUAGE PATHOLOGIST Vinh Rashid, FOOD AND BEVERAGE SERVICE MANAGER Other Providers SPEECH LANGUAGE PATHOLOGIST Alia Cannon Other Providers SPEECH LANGUAGE PATHOLOGIST Stephanie Lemus, FOOD AND BEVERAGE SERVICE MANAGER Other Providers SPEECH LANGUAGE PATHOLOGIST Mena Collins, FOOD AND BEVERAGE SERVICE MANAGER Other Providers SPEECH LANGUAGE PATHOLOGIST Alice Mckeon MD Emergency Provider [facility] STAFF PHYSICIAN Aneudy Moncada MD Admit Provider [facility] STAFF PHYSICIAN Attending Provider Discharge Potential Discharge Needs: PCP F/U Appt Anticipated Barriers to Discharge: None Identified Patient/Family Education Needs: Review discharge instructions, discuss Ask Me Three Transportation: Private vehicle Plan: Anticipate that Theresa will discharge home later today with no new services. She will f/u with her PCP on 03/29 and continue per her plan of care. Theresa will transport home in a private vehicle. Social Determinants of Health Screening Social Determinants of health last assessed in clinic: 03/21/25 Will the Patient Participate in the Screening?: Yes Do you worry about having a steady place to live?: no Problems where you live: no known problems In the past 12 months, have you had to go without electric, gas, oil or water in your home?: no 1. Within the past 12 months, we worried whether our food would run out before we got money to buy more.: Don't know/refused 2. Within the past 12 months, the food we bought just didn't last and we didn't have money to get more.: Don't know/refused Has lack of transportation kept you from medical appointments or from doing things needed for daily living?: no Has anyone in your life made you feel unsafe or unsupported?: no How hard is it for you to pay for the very basics like food, housing, medical care, and heating? Would you say it is:: Not hard at all Do you want help finding or keeping work or a job?: I do not need or want help If for any reason you need help with day-to-day activities such as bathing, preparing meals, shopping, managing finances, etc., do you get the help you need?: I get all the help I need How often do you feel lonely or isolated from those around you?: Never Do you speak a language other than Romanian at home?: No Does the patient want assistance with any of the above?: No PFSH All Active Problems (Updated 03/21/25 @ 01:49 by Aneudy Moncada MD) NSAIDs adverse reaction (Acute) Angioedema of tongue (Acute) Encounter for screening colonoscopy (Acute) Gastroesophageal reflux disease (Acute) asymptomatic - unless the dry cough comes from GERD. We will try the antihistamine first and if no change in symptoms, consider GERD rx. Hypertension (Chronic) Tubular adenoma (Acute) 02/19/11 06/07/19 Arthritis of knee, right (Acute) manages with heating pack Moderate mitral regurgitation (Acute ~06/2022) seen on echo; minimal symptoms Medical History (Updated 03/21/25 @ 01:49 by Aneudy Moncada MD) Acute suppurative otitis media of left ear with spontaneous rupture of ear drum Hx of colonic polyps Retinal hemorrhage from ibuprofen; okay to use aleve. Family hx-breast malignancy Surgical History S/P colonoscopy (~06/07/19) 05/25 - tubular adenoma x3 Status post bunionectomy Open Carpal Tunnel release 07/14/15; DR. HOYT; RIGHT Family History (Updated 04/25/23 @ 09:38 by Carla Roberts MD) Mother , age 89 Heart disease TRIPLE BY PASS Breast cancer Father , age 79 Stroke Sister No problems noted. Brother Essential hypertension Heart disease Diabetes Carotid artery stenosis Brother Diabetes Essential hypertension Carotid artery stenosis under observation Maternal Grandfather , age 70 Essential hypertension Heart disease Paternal Grandfather , age 82 Heart disease Colon cancer Maternal Grandmother , age 69 Stomach cancer Paternal Grandmother , age 80 No problems noted. Daughter Essential hypertension Daughter Essential hypertension Other Substance use disorder Social History (Updated 05/05/24 @ 16:16 by Jazmin Freedman) Smoking/Tobacco Use Status: Never Second Hand Exposure: Yes Smoking risk assessment performed?: Yes Alcohol Intake: current Alcohol Intake frequency: holidays/special occasions only Alcohol type: hard liquor Drug use: Never Substance use type: does not use Adopted: No Caregiver/Support person: No Foster care: No Household members: none Housing: house Number of Children: 2 number of grandchildren: 5 Communication Needs: None Do you need help understanding health information?: Rarely 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 Pets and animals: No Sexually active: No Do you think of yourself as: straight/heterosexual Current gender identity: female What is your relationship status?: How often do you talk on the phone with friends or family?: three or more times per week How often do you get together with friends or relatives?: three or more times per week How often do you attend confucianism or tenriism services?: 1-3 times per year Do you belong to any clubs or organized social groups?: yes Panel score (0-1 are the most socially isolated patients): 2 What type of physical activity do you participate in: walking Duration: 30-45 minutes/day Frequency: 3-4 times per week Evelyn/Jewish: No preference Special evelyn needs: No Agree to transfusion: Yes Seatbelt use: always Helmet use: No Drive intox or ride w/intox sprinkler truck driver: Yes Drive intox or w/intox sprinkler truck driver: rarely Working smoke detector in home: Yes Carbon monox detector in home: Yes Firearms in home: Yes Firearms unloaded and locked: Yes Do you feel safe at home: Yes Do you feel safe in your relationship?: Yes Victim of physical abuse: No Victim of emotional abuse: No Victim of sexual abuse: No Would you like helpful sources: No
== END 2025-03-21 10:45 | disposition home or self-care (01) ==
LOC: ER 14:48 → ICU 15:10
PROVIDERS: Admitting Provider Family Medicine; Emergency Provider Emergency Medicine; PCP Family Medicine; Responsible Provider Family Medicine; Visit Provider Family Medicine
DX: T78.3XXA Angioneurotic edema, initial encounter (principal); T39.395A Adverse effect of other nonsteroidal anti-inflammatory drugs [NSAID], initial encounter; I10 Essential (primary) hypertension; M17.11 Unilateral primary osteoarthritis, right knee; I34.0 Nonrheumatic mitral (valve) insufficiency; E78.5 Hyperlipidemia, unspecified; Z79.899 Other long term (current) drug therapy
CPT/HCPCS: 00123; 36415; 80053; 86850; 86900; 86901; 93005; 96374; 96375; 99222; 99285; 83735; 84484; 85025; 93010; 99238; G0378; J0166; J1200; J2919; J7512; P9059

== ENCOUNTER → 2025-03-22 10:06 | Outpatient (BNVA) | payer MEDICARE, BC, SELFPAY | PROVIDERS: PCP Family Medicine; Referring Provider Family Medicine; Visit Provider Internal Medicine Pulmonary Disease ==

== ENCOUNTER 2025-03-28 07:35 | Outpatient (CLI) | payer MEDICARE, BC, SELFPAY ==
[2025-03-28 09:44] LABS: Anion Gap 8.9 mmol/L (3-11); BUN 29 mg/dL (7-18); CO2 27.1 mmol/L (21.0-32.0); Calcium 10.0 mg/dL (8.5-10.1); Chloride 103 mmol/L (98-107); Estimated GFR 47.21 (mL/min/1.73m2); Glucose 161 mg/dL (74-106); Potassium 4.4 mmol/L (3.5-5.1); Sodium 139 mmol/L (136-145)
== END 2025-03-28 07:36 | disposition home or self-care (01) ==
LOC: LBO 07:35
PROVIDERS: PCP Family Medicine; Visit Provider Family Medicine
DX: I10 Essential (primary) hypertension (principal)
CPT/HCPCS: 36415; 80048

== ENCOUNTER 2025-05-04 01:57 | Outpatient (CLI) | payer MEDICARE, BC, SELFPAY ==
[2025-05-04 10:17] LABS: PROTEIN 7.2 mg/dL; Prot/Crea Ur Ratio 0.09
[2025-05-04 14:34] LABS: Hemoglobin A1C 5.8 % (<5.7)
[2025-05-04 15:37] LABS: Glucose Negative (Negative)
[2025-05-04 15:44] LABS: C & S Indicated? Yes; WBC >50 HPF (0-5)
[2025-05-08 16:05] LABS: Renin Activity, Plasma 7.0 ng/mL/h
== END 2025-05-04 01:58 | disposition home or self-care (01) ==
LOC: LBO 01:57
PROVIDERS: PCP Family Medicine; Visit Provider Family Medicine
DX: R73.01 Impaired fasting glucose (principal); N18.31 Chronic kidney disease, stage 3a; R73.9 Hyperglycemia, unspecified; I10 Essential (primary) hypertension
CPT/HCPCS: 36415; 87077; 81003; 81015; 82088; 82565; 83036; 84156; 84244; 87086; 87186

== ENCOUNTER 2025-05-13 10:09 | Outpatient (CLI) | payer MEDICARE, BC, SELFPAY ==
[2025-05-13 14:32] LABS: Anion Gap 10.4 mmol/L (3-11); BUN 29 mg/dL (7-18); CO2 25.6 mmol/L (21.0-32.0); Calcium 9.5 mg/dL (8.5-10.1); Chloride 104 mmol/L (98-107); Glucose 91 mg/dL (74-106); Potassium 4.6 mmol/L (3.5-5.1); Sodium 140 mmol/L (136-145)
== END 2025-05-13 10:10 | disposition home or self-care (01) ==
LOC: LOS 10:09
PROVIDERS: PCP Family Medicine; Visit Provider Family Medicine
DX: I10 Essential (primary) hypertension (principal); E26.9 Hyperaldosteronism, unspecified
CPT/HCPCS: 36415; 80048

== ENCOUNTER → 2025-06-03 01:41 | Outpatient (CLI) | payer MEDICARE, BC, SELFPAY ==
[2025-06-03] MEDS: Normal Saline Flush 10 ML SYR IVP (09:20)
[2025-06-03] MEDS: Normal Saline - Diluent 50 ML VIAL IJ (09:21)
[2025-06-03] MEDS: Omnipaque 350 MG/ML 100 ML BTL IJ (09:22)
--- NOTE | 2025-06-03 09:40 | DI.CT_ITS ---
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 TECHNIQUE: Imaging Protocol: Axial computed tomography images with coronal and sagittal reformatted images were created and reviewed CONTRAST MATERIAL: Intravenous: Omnipaque 350 Contrast volume:75 ml Oral: no COMPARISON: No exams were available for comparison FINDINGS: ABDOMEN: Lung Bases: No acute findings. Small hiatal hernia. Liver: Normal density. Simple cysts. No follow-up is recommended. No suspicious mass. Gallbladder and biliary tract: No radiodense calculus. No biliary dilation. Pancreas: Normal density, no abnormal calcifications or inflammatory process. Spleen: Normal. Kidneys: Normal size, contour and axis. No radiodense stones or obstructive uropathy. Simple cysts. No follow-up recommended. No suspicious masses seen. Adrenal glands: Normal size and configuration. No masses seen. Bowel: Unremarkable. Appendix is normal. Abdominal Aorta: Abdominal portion non-dilated. Lymph nodes: Within normal limits. Bones: Degenerative disc changes. Soft tissues: Unremarkable. IMPRESSION: Normal adrenal glands. No acute abnormality. RADIATION DOSE DELIVERED: 2,022.8mGy.cmTotal DLP DATA REPOSITORY: All CT scans at this facility are submitted to the National Radiology Data Registry (NRDR) Dose Index Registry (DIR) with the [employer] (ACR). RADIATION OPTIMIZATION: All CT scans at this facility use at least one of these dose optimization techniques: automated exposure control; mA and/or kV adjustment per patient size (includes targeted exams where dose is matched to clinical indication); or iterative reconstruction.
== END ==
LOC: DI 01:41
PROVIDERS: PCP Family Medicine; Visit Provider Family Medicine
DX: E26.9 Hyperaldosteronism, unspecified (principal)
CPT/HCPCS: 74170; J3490